=== PATIENT | male | born 1935 | race Caucasian/White ===

== ENCOUNTER → 2016-05-26 | Outpatient (CLI) | payer MEDICARE ==
[2016-05-26 10:56] LABS: Potassium 4.6 mmol/L (3.5-5.1)
== END ==
LOC: LABWHC1 09:36
PROVIDERS: ATTEND Internal Medicine Interventional Cardiology
DX: I25.10 Atherosclerotic heart disease of native coronary artery without angina pectoris (principal); I10 Essential (primary) hypertension
CPT/HCPCS: 36415; 80048

== ENCOUNTER → 2016-10-26 | Outpatient (CLI) | payer MEDICARE ==
--- NOTE | 2016-10-26 14:57 | US ---
EXAMINATION TYPE: US kidneys/renal and bladder DATE OF EXAM: 10/26/2016 COMPARISON: CT 2012 CLINICAL HISTORY: N18.3 Chronic kidney stage 3. EXAM MEASUREMENTS: Right Kidney: 9.4 x 4.3 x 3.7 cm Left Kidney: 9.1 x 3.9 x 3.9 cm Post Void Residual Volume: 14.9 mL Right Kidney: small cortical cysts renal pelvis prominent 0.8 cm Left Kidney: No hydronephrosis small calculi mid/lower pole 0.6 cm Bladder: wnl Bilateral Jets seen: Yes Normal Post Void Residual: Yes There is no evidence for hydronephrosis at this point in time. No nephrolithiasis is seen. No nicolas s are identified. The urinary bladder is anechoic. Bilateral ureteral jets are seen. Cortical medullary differentiation and cortical thickness are preserved. IMPRESSION: 1. 8mm right renal cyst. 2. 6 mm left mid to lower nonobstructing calculus. 3. Mild prominence of the right renal pelvis without distinct hydronephrosis may relate to transient dilatation during excretion. 4. Preserved cortical medullary differentiation and cortical thickness in a patient with known stage III chronic kidney disease.
== END | disposition home or self-care (01) ==
LOC: RADUSWWP 14:07
PROVIDERS: ATTEND Internal Medicine
DX: N20.0 Calculus of kidney (principal); N28.1 Cyst of kidney, acquired; N18.3 Chronic kidney disease, stage 3 (moderate)
CPT/HCPCS: 76770

== ENCOUNTER 2016-10-31 21:53 | Emergency (ER) | payer MEDICARE ==
[2016-10-31] MEDS ORDERED: KETOROLAC 30 MG/ML 1 ML VIAL IVP STA (22:41)
--- NOTE | 2016-10-31 22:46 | ED ---
General Adult HPI - General Chief complaint: Weakness Stated complaint: R Arm Numb Time Seen by Provider: 10/31/16 22:22 Source: patient, family, RN notes reviewed Mode of arrival: ambulatory Limitations: no limitations - History of Present Illness Initial comments: Patient is a pleasant 81-year-old male presenting to the emergency department with right arm problems. Upon further questioning patient admits his problems are related to the right wrist. Patient complains of discomfort especially with movement. Patient states there may be a little bit of tingling and weakness. Patient states no involvement of the shoulder or upper arm or elbow. No history of similar symptoms previously. No recent trauma. No fevers. - Related Data Home Medications Medication Instructions Recorded Confirmed Atorvastatin [Lipitor] 20 mg PO HS 10/21/14 10/31/16 Calcium Carbonate [Calcium] 600 mg PO DAILY 10/21/14 10/31/16 Aspirin EC [Ecotrin Low Dose] 81 mg PO DAILY 10/31/16 10/31/16 Losartan/Hydrochlorothiazide 1 tab PO DAILY 10/31/16 10/31/16 [Losartan-Hctz 100-25 mg Tab] Metoprolol Tartrate [Lopressor] 25 mg PO BID 10/31/16 10/31/16 Nitroglycerin Sl Tabs [Nitrostat] 0.4 mg SUBLINGUAL Q5M PRN 10/31/16 10/31/16 Previous Rx's Medication Instructions Recorded amLODIPine [Norvasc] 5 mg PO DAILY #30 tab 11/04/14 Hydrocodone/Acetaminophen [[place] 1 each PO Q4HR PRN #15 tab 11/01/16 5-325] Allergies Allergy/AdvReac Type Severity Reaction Status Date / Time Sulfa (Sulfonamide Allergy Rash/Hives Verified 10/31/16 22:00 Antibiotics) Review of Systems ROS Statement: Those systems with pertinent positive or pertinent negative responses have been documented in the HPI. ROS Other: All systems not noted in ROS Statement are negative. Constitutional: Denies: fever, chills Eyes: Denies: eye pain ENT: Denies: ear pain Respiratory: Denies: cough Cardiovascular: Denies: chest pain Endocrine: Denies: fatigue Gastrointestinal: Denies: abdominal pain Genitourinary: Denies: dysuria Musculoskeletal: Denies: back pain Skin: Denies: lesions Neurological: Reports: weakness (Patient states right hand may be somewhat weak. Patient states he does have some chronic weakness from previous biceps tear.) Past Medical History Past Medical History: CVA/TIA, Hyperlipidemia, Hypertension Additional Past Medical History / Comment(s): IRREGULAR. NO RESIDUAL WITH CVA, ASA RESOLVED ALL SYMPTOMS. History of Any Multi-Drug Resistant Organisms: None Reported Past Surgical History: Heart Catheterization Additional Past Surgical History / Comment(s): 10-27-14 cabg x4 vessel with left internal mammary artery, open saphenous vein harvest. 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 Past Anesthesia/Blood Transfusion Reactions: No Reported Reaction Additional Past Anesthesia/Blood Transfusion Reaction / Comment(s): HAS HAD BLOOD TRANSFUSIONS IN THE PAST WITHOUT REACTIONS. Past Psychological History: No Psychological Hx Reported Smoking Status: Former smoker Past Alcohol Use History: None Reported Past Drug Use History: None Reported - Past Family History Father Family Medical History: Cancer Mother Family Medical History: Coronary Artery Disease (CAD) Additional Family Medical History / Comment(s): CABG. General Exam Limitations: no limitations General appearance: alert, in no apparent distress Head exam: Present: atraumatic Eye exam: Present: normal appearance, PERRL ENT exam: Present: normal oropharynx Neck exam: Present: normal inspection Respiratory exam: Present: normal lung sounds bilaterally Cardiovascular Exam: Present: regular rate, normal rhythm Expanded Peripheral pulses: 2+: Radial (R) GI/Abdominal exam: Present: soft. Absent: tenderness Right Shoulder Exam: Present: normal inspection, full ROM Upper Arm exam: Present: normal inspection, full ROM. Absent: tenderness, swelling Elbow exam: Present: normal inspection, full ROM. Absent: tenderness, swelling Forearm Wrist exam: Present: other (Right dorsal wrist region with erythema and warmth, minimal edema. This extends to near the mid hand and just above the wrist. Not circumferential. Not limited to the wrist. No weakness. Pain with range of motion at the wrist.) Left General: Present: other (Amputation at the left mid forearm.) Back exam: Present: normal inspection Neurological exam: Present: alert. Absent: motor sensory deficit Psychiatric exam: Present: normal affect, normal mood Skin exam: Present: erythema (Right dorsal wrist region) Course Vital Signs 10/31/16 10/31/16 10/31/16 21:56 22:51 23:58 Temperature 97.6 F 99.5 F Pulse Rate 110 H 109 H 112 H Respiratory 20 20 18 Rate Blood Pressure 162/96 134/102 103/68 O2 Sat by Pulse 96 98 94 L Oximetry EKG Findings - EKG Comments: EKG Findings:: Sinus tachycardia 110. FL 198. QRS 98. QT 336. QTc 454. Normal axis. Occasional PVC. LVH. Inferior Q waves. No acute ST change. Medical Decision Making - Medical Decision Making Patient reevaluated and improved. Wrist exam unchanged. Symptoms are felt to be more likely related to arthralgia rather than infection. For safety reasons patient will be placed on oral antibiotic. Patient is advised to have close follow-up with primary care physician and orthopedics this week. Patient is advised to return for worsening symptoms or fever. - Lab Data Result diagrams: 10/31/16 22:45 10/31/16 22:45 Lab Results 10/31/16 10/31/16 Range/Units 22:45 22:45 WBC 13.6 H (3.8-10.6) k/uL RBC 4.96 (4.30-5.90) m/uL Hgb 16.7 (13.0-17.5) gm/dL Hct 46.8 (39.0-53.0) % MCV 94.2 (80.0-100.0) fL MCH 33.6 (25.0-35.0) pg MCHC 35.7 (31.0-37.0) g/dL RDW 12.8 (11.5-15.5) % Plt Count 166 (150-450) k/uL Neutrophils % 88 % Lymphocytes % 5 % Monocytes % 5 % Eosinophils % 0 % Basophils % 0 % Neutrophils # 12.0 H (1.3-7.7) k/uL Lymphocytes # 0.7 L (1.0-4.8) k/uL Monocytes # 0.7 (0-1.0) k/uL Eosinophils # 0.0 (0-0.7) k/uL Basophils # 0.0 (0-0.2) k/uL ESR 5 (0-15) mm/hr Sodium 139 (137-145) mmol/L Potassium 3.9 (3.5-5.1) mmol/L Chloride 103 (98-107) mmol/L Carbon Dioxide 21 L (22-30) mmol/L Anion Gap 15 mmol/L BUN 32 H (9-20) mg/dL Creatinine 1.40 H (0.66-1.25) mg/dL Est GFR (MDRD) Af Amer 59 (>60 ml/min/1.73 sqM) Est GFR (MDRD) Non-Af 49 (>60 ml/min/1.73 sqM) Glucose 153 H (74-99) mg/dL Uric Acid 10.2 H (3.5-8.5) mg/dL Calcium 10.0 (8.4-10.2) mg/dL Total Bilirubin 0.9 (0.2-1.3) mg/dL AST 23 (17-59) U/L ALT 34 (21-72) U/L Alkaline Phosphatase 89 (38-126) U/L C-Reactive Protein 12.5 H (<10.0) mg/L Total Protein 7.4 (6.3-8.2) g/dL Albumin 4.6 (3.5-5.0) g/dL - Radiology Data Radiology results: image reviewed (X-ray of the right wrist does show degenerative changes and osteopenia.) Disposition Clinical Impression: Arthralgia of wrist, right Disposition: HOME SELF-CARE Condition: Stable Instructions: Arthralgia (ED) Additional Instructions: Please follow-up with Dr. Espinoza and orthopedic physician this week, call in the morning. Return for fever, increased redness, increased pain, increased swelling, worsening symptoms or any other concerns. Ilse-tjr-pknniov ibuprofen as needed. Prescriptions: Hydrocodone/Acetaminophen [[place] 5-325] 1 each PO Q4HR PRN #15 tab PRN Reason: Pain Referrals: Stuart Espinoza MD [Primary Care Provider] - 1-2 days Time of Disposition: 00:43
[2016-10-31 23:02] LABS: Basophils % (A) 0 %; CH 32.5; CHCM 34.6; Eosinophils % (A) 0 %; HCT 46.8 % (39.0-53.0); HDW 2.49; HGB 16.7 gm/dL (13.0-17.5); Luc # (Auto) 0.15; Luc % (Auto) 1; Lymphocytes # (A) 0.7 k/uL (1.0-4.8); Lymphocytes % (A) 5 %; MCH 33.6 pg (25.0-35.0); MCHC 35.7 g/dL (31.0-37.0); MCV 94.2 fL (80.0-100.0); Mean Platelet Volume 8.5; Monocytes # (A) 0.7 k/uL (0-1.0); Monocytes % (A) 5 %; Neutrophils % (A) 88 %; RBC 4.96 m/uL (4.30-5.90); RDW 12.8 % (11.5-15.5); WBC 13.6 k/uL (3.8-10.6); WBC (Perox) 13.14
[2016-10-31 23:14] LABS: C Reactive Protein 12.5 mg/L (<10.0); Potassium 3.9 mmol/L (3.5-5.1); Total Bilirubin 0.9 mg/dL (0.2-1.3); Total Protein 7.4 g/dL (6.3-8.2); Uric Acid 10.2 mg/dL (3.5-8.5)
--- NOTE | 2016-10-31 23:19 | XR ---
EXAM: XR Right Wrist Complete, 3 or More Views CLINICAL HISTORY: Reason: Pain TECHNIQUE: Frontal, lateral and oblique views of the right wrist. COMPARISON: No relevant prior studies available. FINDINGS: Bones/joints: Moderate osteoarthritic changes, characterized by subchondral sclerotic and cystic changes, joint space narrowing and osteophyte formation, worse at trapezium first metacarpal joint. No acute fracture. No dislocation. Soft tissues: Unremarkable. No radiopaque foreign body. IMPRESSION: 1. Osteopenia. 2. Moderate osteoarthritic changes worse at trapezium first metacarpal joint.
[2016-10-31 23:59] VITALS: BP 103/68; PULSE 112; RESP 18; TEMP 99.5
[2016-11-01 00:03] LABS: Erythrocyte Sedimentation Rate 5 mm/hr (0-15)
--- NOTE | 2016-11-01 00:44 | ED ---
Medical Decision Making - Lab Data Result diagrams: 10/31/16 22:45 10/31/16 22:45 Lab Results 10/31/16 10/31/16 Range/Units 22:45 22:45 WBC 13.6 H (3.8-10.6) k/uL RBC 4.96 (4.30-5.90) m/uL Hgb 16.7 (13.0-17.5) gm/dL Hct 46.8 (39.0-53.0) % MCV 94.2 (80.0-100.0) fL MCH 33.6 (25.0-35.0) pg MCHC 35.7 (31.0-37.0) g/dL RDW 12.8 (11.5-15.5) % Plt Count 166 (150-450) k/uL Neutrophils % 88 % Lymphocytes % 5 % Monocytes % 5 % Eosinophils % 0 % Basophils % 0 % Neutrophils # 12.0 H (1.3-7.7) k/uL Lymphocytes # 0.7 L (1.0-4.8) k/uL Monocytes # 0.7 (0-1.0) k/uL Eosinophils # 0.0 (0-0.7) k/uL Basophils # 0.0 (0-0.2) k/uL ESR 5 (0-15) mm/hr Sodium 139 (137-145) mmol/L Potassium 3.9 (3.5-5.1) mmol/L Chloride 103 (98-107) mmol/L Carbon Dioxide 21 L (22-30) mmol/L Anion Gap 15 mmol/L BUN 32 H (9-20) mg/dL Creatinine 1.40 H (0.66-1.25) mg/dL Est GFR (MDRD) Af Amer 59 (>60 ml/min/1.73 sqM) Est GFR (MDRD) Non-Af 49 (>60 ml/min/1.73 sqM) Glucose 153 H (74-99) mg/dL Uric Acid 10.2 H (3.5-8.5) mg/dL Calcium 10.0 (8.4-10.2) mg/dL Total Bilirubin 0.9 (0.2-1.3) mg/dL AST 23 (17-59) U/L ALT 34 (21-72) U/L Alkaline Phosphatase 89 (38-126) U/L C-Reactive Protein 12.5 H (<10.0) mg/L Total Protein 7.4 (6.3-8.2) g/dL Albumin 4.6 (3.5-5.0) g/dL Disposition Clinical Impression: Arthralgia of wrist, right Disposition: HOME SELF-CARE Condition: Stable Instructions: Arthralgia (ED) Additional Instructions: Please follow-up with Dr. Espinoza and orthopedic physician this week, call in the morning. Return for fever, increased redness, increased pain, increased swelling, worsening symptoms or any other concerns. Kwxn-fwp-puyavys ibuprofen as needed. Prescriptions: Hydrocodone/Acetaminophen [[place] 5-325] 1 each PO Q4HR PRN #15 tab PRN Reason: Pain Referrals: Stuart Espinoza MD [Primary Care Provider] - 1-2 days Galindo Patel DO [Doctor of Osteopathic Medicine] - 1-2 days
[2016-11-01] MEDS ORDERED: HYDROcodone/APAP 5-325MG 1 EACH TAB PO STA (00:54)
== END 2016-11-01 00:57 | disposition home or self-care (01) ==
LOC: EC 21:53
DX: M25.531 Pain in right wrist (principal); R53.1 Weakness; E78.5 Hyperlipidemia, unspecified; I10 Essential (primary) hypertension; Z87.891 Personal history of nicotine dependence; Z86.73 Personal history of transient ischemic attack (TIA), and cerebral infarction without residual deficits; Z79.82 Long term (current) use of aspirin; Z79.899 Other long term (current) drug therapy; Z88.2 Allergy status to sulfonamides
CPT/HCPCS: 36415; 93005; 80053; 85652; 84550; 85025; 86140; 87040; 73110; 99285; 96374; J1885

== ENCOUNTER → 2018-04-24 | Outpatient (CLI) | payer MEDICARE ==
--- NOTE | 2018-04-24 08:52 | US ---
EXAMINATION TYPE: US kidneys/renal and bladder DATE OF EXAM: 04/24/2018 COMPARISON: US 2017 CLINICAL HISTORY: CKD STAGE 3 N18.3. EXAM MEASUREMENTS: Right Kidney: 10.4 x 5.0 x 4.9 cm Left Kidney: 10.1 x 5.3 x 5.2 cm Post Void Residual Volume: 33.0 mL Right Kidney: Lower pole cyst = 1.0 x 0.9 x 0.8 cm No hydronephrosis seen Left Kidney: 1.5 cm renal nonobstructing renal calculus mid/upper pole. No hydronephrosis or masses s een Bladder: Limited by incomplete distention with no definite abnormality Bilateral Jets seen: Yes Normal Post Void Residual: Yes IMPRESSION: 1. Nonobstructing left renal calculus
== END ==
LOC: RADUSWWP 08:09
PROVIDERS: ATTEND Internal Medicine
DX: N20.0 Calculus of kidney (principal)
CPT/HCPCS: 76770

== ENCOUNTER → 2018-09-30 | Outpatient (CLI) | payer MEDICARE ==
--- NOTE | 2018-09-30 14:03 | CT ---
EXAMINATION TYPE: CT brain wo con DATE OF EXAM: 09/30/2018 COMPARISON: 08/04/2018 HISTORY: slurred speech CT DLP: 1225 mGycm Automated exposure control for dose reduction was used. FINDINGS: There is extensive atherosclerotic change of the intracranial structures. Asymmetry to the right fron kandace cerebral convexity may represent chronic subdural hygroma or hematoma stable from the prior exam. No acute intracranial hemorrhage or mass effect. Moderate generalized degenerative change and low-attenuation the white matter is nonspecific but most typical remote ischemia. Areas of low attenuation within the basal ganglia are suggestive of remote lacunar infarctions. Calcification within the right basal ganglia and cerebellum is stable from the prior exam IMPRESSION: 1. Degenerative and nonspecific remote ischemic change with no evidence of acute hemorrhage or mass e ffect. If there is concern for acute ischemia correlate with MRI as clinically warranted. 2. 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 No midline shift. No acute hemorrhage.
== END | disposition home or self-care (01) ==
LOC: RADCTMAIN 13:16
PROVIDERS: ATTEND Internal Medicine
DX: G45.9 Transient cerebral ischemic attack, unspecified (principal); R47.01 Aphasia
CPT/HCPCS: 70450

== ENCOUNTER → 2018-10-04 | Outpatient (CLI) | payer MEDICARE ==
--- NOTE | 2018-10-05 08:01 | MR ---
EXAMINATION TYPE: MR brain wo/w con DATE OF EXAM: 10/04/2018 COMPARISON: CT brain 09/30/2018 HISTORY: Aphasia, CT on pacs, 7.5ml gadavist CONTRAST: Performed utilizing 7.5ml mL intravenous Gadavist gadolinium contrast. TECHNIQUE: Multiplanar, multiecho imaging on a 3.0 Vi magnet is performed through the brain. Stud y is performed within 24 hours of arrival to the hospital. The craniovertebral junction is normal. The pituitary is normal. Diffusion-weighted imaging is performed. There is hyperintensity along the cortex deep white matter of the posterior left parietal lobe. Findings are compatible with acute ischemic change There are additional areas of hyperintensity on T2 and inversion recovery weighted sequences within t he deep white matter and subcortical white matter which can be compatible with chronic white matter i schemic changes. Following contrast, there is an area of enhancement along the cortex deep within the sulcus of the le ft frontal lobe. Series 701 image 22 this may be some luxury perfusion corresponds to an area of isch emia on the diffusion. Additional areas of abnormal enhancement are not evident. Ventricles and sulci are prominent for the patient age. IMPRESSIONS: 1. Scattered peripheral areas of acute ischemic change within the left frontal lobe, parietal lobe 2. Atrophy with chronic appearing periventricular white matter ischemic changes. A [place] level critical message alert has been initiated for Stuart Espinoza MD via the [employer] Critical Results System on 10/05/2018 7:58 AM. This message alert has been sent to Stuart Espinoza MD via the preferences provided by the clinician for the receipt of Radiology Critical Findings. Message ID [id number].
== END | disposition home or self-care (01) ==
LOC: RADMRIMAIN 17:13
PROVIDERS: ATTEND Internal Medicine
DX: I67.82 Cerebral ischemia (principal); G31.9 Degenerative disease of nervous system, unspecified; R90.89 Other abnormal findings on diagnostic imaging of central nervous system
CPT/HCPCS: 70553; A9585

== ENCOUNTER 2019-01-11 15:12 | Emergency (ER) | payer MEDICARE ==
[2019-01-11 15:18] VITALS: RESP 18
--- NOTE | 2019-01-11 16:04 | ED ---
General Adult HPI - General Chief complaint: Neuro Symptoms/Deficit Stated complaint: Headache/weakness Time Seen by Provider: 01/11/19 15:32 Source: patient, RN notes reviewed Mode of arrival: ambulatory Limitations: no limitations - History of Present Illness Initial comments: This is a 83-year-old male who states he had some right facial pain while he was shopping earlier today perhaps some numbness no weakness to his upper or lower extremities. It lasted several minutes is gone now. He did have a cystic like mass on the right side of his face for a long period time he was able express some sebaceous appearing material from it. He relates the findings to this cystic mass. 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 He does believe that he has been told by his doctor the male he has some small stroke in the past. - Related Data Home Medications Medication Instructions Recorded Confirmed Atorvastatin [Lipitor] 20 mg PO DAILY 10/21/14 08/04/18 Aspirin EC [Ecotrin Low Dose] 81 mg PO DAILY 10/31/16 08/04/18 Losartan/Hydrochlorothiazide 1 tab PO DAILY 10/31/16 08/04/18 [Losartan-Hctz 100-25 mg Tab] Metoprolol Tartrate [Lopressor] 25 mg PO BID 10/31/16 08/04/18 amLODIPine [Norvasc] 5 mg PO HS 08/04/18 08/04/18 Allergies Allergy/AdvReac Type Severity Reaction Status Date / Time Sulfa (Sulfonamide Allergy Rash/Hives Verified 01/11/19 15:18 Antibiotics) Review of Systems ROS Statement: Those systems with pertinent positive or pertinent negative responses have been documented in the HPI. ROS Other: All systems not noted in ROS Statement are negative. Past Medical History Past Medical History: CVA/TIA, Hyperlipidemia, Hypertension Additional Past Medical History / Comment(s): IRREGULAR. NO RESIDUAL WITH CVA, ASA RESOLVED ALL SYMPTOMS. History of Any Multi-Drug Resistant Organisms: None Reported Past Surgical History: Heart Catheterization Additional Past Surgical History / Comment(s): 10-27-14 cabg x4 vessel with left internal mammary artery, open saphenous vein harvest. 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 Past Anesthesia/Blood Transfusion Reactions: No Reported Reaction Additional Past Anesthesia/Blood Transfusion Reaction / Comment(s): HAS HAD BLOOD TRANSFUSIONS IN THE PAST WITHOUT REACTIONS. Past Psychological History: No Psychological Hx Reported Smoking Status: Former smoker Past Alcohol Use History: None Reported Past Drug Use History: None Reported - Past Family History Father Family Medical History: Cancer Mother Family Medical History: Coronary Artery Disease (CAD) Additional Family Medical History / Comment(s): CABG. General Exam - General Exam Comments Initial Comments: This a well-developed well-nourished awake alert oriented 3 male Limitations: no limitations General appearance: alert, in no apparent distress Head exam: Present: atraumatic, normocephalic, normal inspection, other (There is a small cystic areas seen to the right protestant area anterior to the ear active bleeding. A culture was sent.) Eye exam: Present: normal appearance, PERRL, EOMI. Absent: scleral icterus, con junctival injection, periorbital swelling ENT exam: Present: normal exam, mucous membranes moist Neck exam: Present: normal inspection, full ROM, other (ALLERGY or bruits). Absent: tenderness, meningismus, lymphadenopathy Respiratory exam: Present: normal lung sounds bilaterally. Absent: respiratory distress, wheezes, rales, rhonchi, stridor Cardiovascular Exam: Present: regular rate, normal rhythm, normal heart sounds. Absent: systolic murmur, diastolic murmur, rubs, gallop, clicks GI/Abdominal exam: Present: soft, normal bowel sounds. Absent: distended, tenderness, guarding, rebound, rigid Extremities exam: Present: full ROM, normal capillary refill, other (Left upper extremity prosthesis). Absent: tenderness, pedal edema, joint swelling, calf tenderness Back exam: Present: normal inspection Neurological exam: Present: alert, oriented X3, CN II-XII intact Psychiatric exam: Present: normal affect, normal mood Skin exam: Present: warm, dry, intact, normal color. Absent: rash Course Vital Signs 01/11/19 01/11/19 15:16 16:15 Temperature 97.4 F L Pulse Rate 76 75 Respiratory 18 18 Rate Blood Pressure 141/73 124/79 O2 Sat by Pulse 98 95 Oximetry - Reevaluation(s) Reevaluation #1: 01/11/19 17:20 Reevaluation patient reveals no change in his status no headache no blurry vision no focal weakness. Reevaluation #2: 01/11/19 17:23 Transfer papers were filled out by me EKG Findings - EKG Results: EKG: interpreted by MAURO, sinus rhythm (Sinus rhythm with first-degree AV block occasional PACs rate was 71 appear interval 2:30 QRS duration 88 QT since QTC 392/425) Medical Decision Making - Medical Decision Making I did discuss findings with the patient family patient requests to [facility] I did discuss the case with Dr. Li who is agreed to accept the patient and transfer the patient case was also discussed with the transfer team who did contact neurosurgery who agreed to accept the patient. Patient will be transferred by EMS. He currently is awake alert oriented 3 in no distress with stable vital signs. A family member did notify me that he did have some right finger numbness She had not previously told anyone. - Lab Data Result diagrams: 01/11/19 15:40 01/11/19 15:40 Lab Results 01/11/19 01/11/19 Range/Units 15:40 15:40 WBC 7.0 (3.8-10.6) k/uL RBC 5.12 (4.30-5.90) m/uL Hgb 16.5 (13.0-17.5) gm/dL Hct 49.3 (39.0-53.0) % MCV 96.2 (80.0-100.0) fL MCH 32.2 (25.0-35.0) pg MCHC 33.5 (31.0-37.0) g/dL RDW 12.3 (11.5-15.5) % Plt Count 203 (150-450) k/uL Neutrophils % 63 % Lymphocytes % 24 % Monocytes % 6 % Eosinophils % 2 % Basophils % 2 % Neutrophils # 4.4 (1.3-7.7) k/uL Lymphocytes # 1.7 (1.0-4.8) k/uL Monocytes # 0.4 (0-1.0) k/uL Eosinophils # 0.2 (0-0.7) k/uL Basophils # 0.1 (0-0.2) k/uL Sodium 142 (137-145) mmol/L Potassium 3.7 (3.5-5.1) mmol/L Chloride 105 (98-107) mmol/L Carbon Dioxide 29 (22-30) mmol/L Anion Gap 8 mmol/L BUN 32 H (9-20) mg/dL Creatinine 1.35 H (0.66-1.25) mg/dL Est GFR (CKD-EPI)AfAm 56 (>60 ml/min/1.73 sqM) Est GFR (CKD-EPI)NonAf 48 (>60 ml/min/1.73 sqM) Glucose 100 H (74-99) mg/dL Calcium 10.3 H (8.4-10.2) mg/dL Magnesium 1.9 (1.6-2.3) mg/dL Total Bilirubin 0.8 (0.2-1.3) mg/dL AST 24 (17-59) U/L ALT 30 (21-72) U/L Alkaline Phosphatase 65 (38-126) U/L Creatine Kinase 85 (55-170) U/L Total Protein 7.5 (6.3-8.2) g/dL Albumin 4.6 (3.5-5.0) g/dL - Radiology Data Radiology results: report reviewed (I did review the imaging and report did discuss case with Dr. Ojeda from radiology. Patient does have a 3 x 1 cm intraparenchymal bleed in the left parietal lobe.), image reviewed Critical Care Time Critical Care Time: Yes Critical Care Time: 31 minutes of critical care time which includes initial presentation with history physical labs x-rays multiple reevaluation the patient discussed with patient and family members regarding findings discussion with the receiving facility discussed and with EMS personnel documentation of the above Disposition Clinical Impression: Cerebrovascular accident (CVA), Spontaneous intraparenchymal intracranial hem orrhage, acute Disposition: OTHER INSTITUTION NOT DEFINED Condition: Fair Referrals: Stuart Espinoza MD [Primary Care Provider] - 1-2 days - Out of Hospital Transfer - Req. Specs Out of Hospital Transfer - Requested Specifics: Other Emergency Center
[2019-01-11 16:13] LABS: Basophils # (A) 0.1 k/uL (0-0.2); Basophils % (A) 2 %; Eosinophils # (A) 0.2 k/uL (0-0.7); Eosinophils % (A) 2 %; HCT 49.3 % (39.0-53.0); HGB 16.5 gm/dL (13.0-17.5); Lymphocytes # (A) 1.7 k/uL (1.0-4.8); Lymphocytes % (A) 24 %; MCH 32.2 pg (25.0-35.0); MCHC 33.5 g/dL (31.0-37.0); MCV 96.2 fL (80.0-100.0); Mean Platelet Volume 7.9; Monocytes # (A) 0.4 k/uL (0-1.0); Monocytes % (A) 6 %; Neutrophils # (A) 4.4 k/uL (1.3-7.7); Neutrophils % (A) 63 %; Platelet Count 203 k/uL (150-450); RBC 5.12 m/uL (4.30-5.90); RDW 12.3 % (11.5-15.5)
[2019-01-11 16:25] LABS: Albumin 4.6 g/dL (3.5-5.0); Calcium 10.3 mg/dL (8.4-10.2); Magnesium 1.9 mg/dL (1.6-2.3); Potassium 3.7 mmol/L (3.5-5.1); Total Bilirubin 0.8 mg/dL (0.2-1.3); Total Protein 7.5 g/dL (6.3-8.2)
--- NOTE | 2019-01-11 16:27 | CT ---
EXAMINATION TYPE: CT brain wo con DATE OF EXAM: 01/11/2019 COMPARISON: None HISTORY: Right sided headache. CT DLP: 1149.4 mGycm Automated exposure control for dose reduction was used. FINDINGS: There is some cerebral cortical atrophy. There is no mass effect nor midline shift. There is some vijaya ear is somewhat gyriform increased signal that measures 3 x 1 cm in the left parietal lobe convexity. This appears to be arising within the brain parenchyma. Calvarium is intact. IMPRESSION: CEREBRAL ATROPHY. ACUTE GYRIFORM CORTICAL HEMORRHAGE LEFT PARIETAL LOBE. THIS COULD RELATE TO ACUTE H EMORRHAGIC INFARCT. NO MASS EFFECT.
--- NOTE | 2019-01-11 16:29 | XR ---
EXAMINATION TYPE: XR chest 2V DATE OF EXAM: 01/11/2019 COMPARISON: 11/02/2014 HISTORY: Pain and numbness TECHNIQUE: Frontal and lateral views of the chest are obtained. FINDINGS: There is no heart failure nor confluent pneumonic infiltrate. There are sternal wires. The re are chest leads. There is slight thoracic kyphotic curvature. There is no pleural effusion. IMPRESSION: No active cardiopulmonary disease. There is clearing of the apparent heart failure and p leural fluid compared to last exam.
[2019-01-11 18:04] VITALS: BP 150/80; PULSE 78; TEMP 98.1
== END 2019-01-11 17:35 | disposition short-term general hospital (02) ==
LOC: EC 15:12
DX: I63.9 Cerebral infarction, unspecified (principal); I62.9 Nontraumatic intracranial hemorrhage, unspecified; L72.9 Follicular cyst of the skin and subcutaneous tissue, unspecified; E78.5 Hyperlipidemia, unspecified; I10 Essential (primary) hypertension; Z87.891 Personal history of nicotine dependence; Z88.2 Allergy status to sulfonamides; Z79.82 Long term (current) use of aspirin; Z79.899 Other long term (current) drug therapy; Z95.818 Presence of other cardiac implants and grafts; Z89.212 Acquired absence of left upper limb below elbow
CPT/HCPCS: 36415; 70450; 71046; 80053; 82550; 83735; 85025; 87040; 93005; 99291

== ENCOUNTER 2019-01-13 16:29 | Emergency (ER) | payer MEDICARE ==
--- NOTE | 2019-01-13 16:55 | ED ---
Neuro HPI - General Chief Complaint: Neuro Symptoms/Deficit Stated Complaint: Rt arm/face numbness Time Seen by Provider: 01/13/19 16:42 Source: patient, family, RN notes reviewed, old records reviewed Mode of arrival: ambulatory Limitations: no limitations - History of Present Illness Is the patient presenting with stroke symptoms?: No Initial Comments: This 83-year-old male who was just discharged from [facility] this morning after being sent here for evaluation of a intracerebral bleed who states after getting home he had the onset of right hand specifically fourth of fifth finger numbness and tingling. And some right-sided numbness to his body. This quickly resolved he has no complaints no new findings at this time. No fevers chills nausea vomiting sweats or other symptoms he does state that some of his medications were changed he was a Na and he has outpatient follow- up with his doctors. The patient was seen here 2 days ago by me and was diagnosed with a left parietal intraparenchymal bleed. - Related Data Home Medications: Home Medications Medication Instructions Recorded Confirmed Aspirin EC [Ecotrin Low Dose] 81 mg PO DIRECTED 10/31/16 01/13/19 Metoprolol Tartrate [Lopressor] 25 mg PO BID 10/31/16 01/13/19 amLODIPine [Norvasc] 5 mg PO HS 08/04/18 01/13/19 Atorvastatin Calcium [Lipitor] 40 mg PO HS 01/13/19 01/13/19 Allergies/Adverse Reactions: Allergies Allergy/AdvReac Type Severity Reaction Status Date / Time Sulfa (Sulfonamide Allergy Rash/Hives Verified 01/13/19 18:44 Antibiotics) Review of Systems ROS Statement: Those systems with pertinent positive or pertinent negative responses have been documented in the HPI. ROS Other: All systems not noted in ROS Statement are negative. General Exam - General Exam Comments Initial Comments: This is a well-developed well-nourished awake alert oriented 3 male Limitations: no limitations General appearance: alert, in no apparent distress Head exam: Present: atraumatic, normocephalic, normal inspection Eye exam: Present: normal appearance, PERRL, EOMI. Absent: scleral icterus, co njunctival injection, periorbital swelling ENT exam: Present: normal exam, mucous membranes moist Neck exam: Present: normal inspection, full ROM, other (No stridor JVD or bruits). Absent: tenderness, meningismus, lymphadenopathy Respiratory exam: Present: normal lung sounds bilaterally. Absent: respiratory distress, wheezes, rales, rhonchi, stridor Cardiovascular Exam: Present: regular rate, normal rhythm, normal heart sounds. Absent: systolic murmur, diastolic murmur, rubs, gallop, clicks GI/Abdominal exam: Present: soft, normal bowel sounds. 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 Absent: tenderness, pedal edema, joint swelling, calf tenderness Back exam: Present: normal inspection Neurological exam: Present: alert, oriented X3, CN II-XII intact Psychiatric exam: Present: normal affect, normal mood Skin exam: Present: warm, dry, intact, normal color. Absent: rash Stroke MDM - Lab Data Result diagrams: 01/13/19 17:20 01/13/19 17:20 Lab Results 01/13/19 01/13/19 01/13/19 Range/Units 17:20 17:20 17:20 WBC 7.3 (3.8-10.6) k/uL RBC 5.19 (4.30-5.90) m/uL Hgb 17.1 (13.0-17.5) gm/dL Hct 49.9 (39.0-53.0) % MCV 96.1 (80.0-100.0) fL MCH 32.9 (25.0-35.0) pg MCHC 34.2 (31.0-37.0) g/dL RDW 12.3 (11.5-15.5) % Plt Count 184 (150-450) k/uL Neutrophils % 67 % Lymphocytes % 21 % Monocytes % 8 % Eosinophils % 2 % Basophils % 0 % Neutrophils # 4.9 (1.3-7.7) k/uL Lymphocytes # 1.6 (1.0-4.8) k/uL Monocytes # 0.6 (0-1.0) k/uL Eosinophils # 0.1 (0-0.7) k/uL Basophils # 0.0 (0-0.2) k/uL PT 10.1 (9.0-12.0) sec INR 0.9 (<1.2) APTT 23.9 (22.0-30.0) sec Sodium 141 (137-145) mmol/L Potassium 4.0 (3.5-5.1) mmol/L Chloride 101 (98-107) mmol/L Carbon Dioxide 29 (22-30) mmol/L Anion Gap 11 mmol/L BUN 31 H (9-20) mg/dL Creatinine 1.46 H (0.66-1.25) mg/dL Est GFR (CKD-EPI)AfAm 51 (>60 ml/min/1.73 sqM) Est GFR (CKD-EPI)NonAf 44 (>60 ml/min/1.73 sqM) Glucose 114 H (74-99) mg/dL Calcium 9.6 (8.4-10.2) mg/dL Total Bilirubin 1.2 (0.2-1.3) mg/dL AST 31 (17-59) U/L ALT 32 (21-72) U/L Alkaline Phosphatase 59 (38-126) U/L Creatine Kinase 92 (55-170) U/L Troponin I (0.000-0.034) ng/mL Total Protein 7.5 (6.3-8.2) g/dL Albumin 4.5 (3.5-5.0) g/dL 01/13/19 Range/Units 17:20 WBC (3.8-10.6) k/uL RBC (4.30-5.90) m/uL Hgb (13.0-17.5) gm/dL Hct (39.0-53.0) % MCV (80.0-100.0) fL MCH (25.0-35.0) pg MCHC (31.0-37.0) g/dL RDW (11.5-15.5) % Plt Count (150-450) k/uL Neutrophils % % Lymphocytes % % Monocytes % % Eosinophils % % Basophils % % Neutrophils # (1.3-7.7) k/uL Lymphocytes # (1.0-4.8) k/uL Monocytes # (0-1.0) k/uL Eosinophils # (0-0.7) k/uL Basophils # (0-0.2) k/uL PT (9.0-12.0) sec INR (<1.2) APTT (22.0-30.0) sec Sodium (137-145) mmol/L Potassium (3.5-5.1) mmol/L Chloride (98-107) mmol/L Carbon Dioxide (22-30) mmol/L Anion Gap mmol/L BUN (9-20) mg/dL Creatinine (0.66-1.25) mg/dL Est GFR (CKD-EPI)AfAm (>60 ml/min/1.73 sqM) Est GFR (CKD-EPI)NonAf (>60 ml/min/1.73 sqM) Glucose (74-99) mg/dL Calcium (8.4-10.2) mg/dL Total Bilirubin (0.2-1.3) mg/dL AST (17-59) U/L ALT (21-72) U/L Alkaline Phosphatase (38-126) U/L Creatine Kinase (55-170) U/L Troponin I <0.012 (0.000-0.034) ng/mL Total Protein (6.3-8.2) g/dL Albumin (3.5-5.0) g/dL - NIH Stroke Scale 1a. Level of Consciousness: (0) alert 1b. LOC Questions: (0) answers correctly 1c. LOC Commands: (0) performs tasks correctly 2. Best Gaze: (0) normal 3. Visual: (0) no visual loss 4. Facial Palsy: (0) normal symmetrical movement 5a. Motor Arm Left: (0) no drift 5b. Motor Arm Right: (0) no drift 6a. Motor Leg Left: (0) no drift 6b. Motor Leg Right: (0) no drift 7. Limb Ataxia: (0) absent 8. Sensory: (0) normal 9. Best Language: (0) no aphasia 10. Dysarthria: (0) normal 11. Extinction/Inattention: (0) no abnormality - Thrombolytic Inclusion/Exclusion Thrombolytic Contraindications: Rapidly Improving s/s - Medical Decision Making I did review the imaging and report no acute changes from 2 days ago. I did review all of the materials presented from [facility]. The patient was offered admission I had actually discussed the case with who originally agreed this keep the patient hospital here I did a long discussion with the patient family members patient does not want to stay in the hospital. He would prefer to go home. He would prefer to follow up with Dr. Espinoza in the office. We did discuss the symptoms and the possible etiologies patient does not want stay in hospital. He was welcome back at any time. The presentation is seemingly more consistent with a cervical radicular etiology with respect to the numbness to the right fourth and fifth fingers. - EKG Data -: EKG Interpreted by Me (Sinus rhythm first-degree AV block PACs rate was 74. Interval 220 QRS dura) Past Medical History Past Medical History: CVA/TIA, Hyperlipidemia, Hypertension Additional Past Medical History / Comment(s): IRREGULAR. NO RESIDUAL WITH CVA, ASA RESOLVED ALL SYMPTOMS., brain bleed History of Any Multi-Drug Resistant Organisms: None Reported Past Surgical History: Heart Catheterization Additional Past Surgical History / Comment(s): 10-27-14 cabg x4 vessel with left internal mammary artery, open saphenous vein harvest. 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 Past Anesthesia/Blood Transfusion Reactions: No Reported Reaction Additional Past Anesthesia/Blood Transfusion Reaction / Comment(s): HAS HAD BLOOD TRANSFUSIONS IN THE PAST WITHOUT REACTIONS. Past Psychological History: No Psychological Hx Reported Smoking Status: Former smoker Past Alcohol Use History: None Reported Past Drug Use History: None Reported - Past Family History Father Family Medical History: Cancer Mother Family Medical History: Coronary Artery Disease (CAD) Additional Family Medical History / Comment(s): CABG. Course Vital Signs 01/13/19 01/13/19 01/13/19 16:33 18:38 19:00 Temperature 97.7 F Pulse Rate 72 80 87 Respiratory 18 16 18 Rate Blood Pressure 144/85 132/92 132/82 O2 Sat by Pulse 96 95 93 L Oximetry 01/13/19 19:45 Temperature Pulse Rate 87 Respiratory 20 Rate Blood Pressure 135/84 O2 Sat by Pulse 99 Oximetry - Reevaluation(s) Reevaluation #1: 01/13/19 21:04 I did review the materials transmitted from [facility] on the patient's c are. Disposition Clinical Impression: Cervical radiculopathy, History of subarachnoid hemorrhage Disposition: HOME SELF-CARE Condition: Stable Instructions (If sedation given, give patient instructions): Subarachnoid Hemorrhage (DC), Cervical Radiculopathy (ED) Is patient prescribed a controlled substance at d/c from ED?: No Referrals: Stuart Espinoza MD [Primary Care Provider] - 1-2 days
[2019-01-13 17:34] LABS: Basophils % (A) 0 %; Eosinophils # (A) 0.1 k/uL (0-0.7); Eosinophils % (A) 2 %; HCT 49.9 % (39.0-53.0); HGB 17.1 gm/dL (13.0-17.5); Lymphocytes # (A) 1.6 k/uL (1.0-4.8); Lymphocytes % (A) 21 %; MCH 32.9 pg (25.0-35.0); MCHC 34.2 g/dL (31.0-37.0); MCV 96.1 fL (80.0-100.0); Mean Platelet Volume 7.4; Monocytes # (A) 0.6 k/uL (0-1.0); Monocytes % (A) 8 %; Neutrophils # (A) 4.9 k/uL (1.3-7.7); Neutrophils % (A) 67 %; Platelet Count 184 k/uL (150-450); RBC 5.19 m/uL (4.30-5.90); RDW 12.3 % (11.5-15.5); WBC 7.3 k/uL (3.8-10.6)
[2019-01-13 17:40] LABS: INR 0.9 (<1.2); Partial Thromboplastin Time 23.9 sec (22.0-30.0); Prothrombin Time 10.1 sec (9.0-12.0)
[2019-01-13 17:44] LABS: Albumin 4.5 g/dL (3.5-5.0); Calcium 9.6 mg/dL (8.4-10.2); Total Bilirubin 1.2 mg/dL (0.2-1.3); Total Protein 7.5 g/dL (6.3-8.2)
--- NOTE | 2019-01-13 18:03 | XR ---
EXAMINATION TYPE: XR chest 2V DATE OF EXAM: 01/13/2019 COMPARISON: 01/11/2019 HISTORY: Shortness of breath TECHNIQUE: Frontal and lateral views of the chest are obtained. FINDINGS: Scattered senescent parenchymal changes noted. Hyperinflation compatible with COPD. No evidence for infiltrate. No evidence for atelectasis. Heart size is stable. Mediastinal structures are stable and grossly unremarkable. No evidence for hilar prominence. Degenerative changes dorsal spine. IMPRESSION: 1. No evidence for acute pulmonary disease.
--- NOTE | 2019-01-13 18:10 | CT ---
EXAMINATION TYPE: CT brain wo con DATE OF EXAM: 01/13/2019 COMPARISON: 01/11/2019 HISTORY: rt hand/arm tingling/numbness feeling started today. brain bleed [address] DLP: 1083.[address] of the brain was performed. The ventricles, basal cisterns and sulci overlying the cerebral convexities demonstrate mild enlargem ent. High left frontal subarachnoid hemorrhage is again noted and is unchanged. There is decreased attenuation about the periventricular white matter and deep white matter of both c erebral hemispheres, compatible with chronic small vessel ischemia. Differential diagnosis does inclu de demyelination. No mass effects are seen.No midline shift. Osseous calvarium is intact. If symptoms persist consider MRI. IMPRESSION: 1. Age related atrophic and chronic small vessel ischemic change . High left frontal subarachnoid hem orrhage is again noted and is unchanged.
[2019-01-13 21:34] VITALS: RESP 18
[2019-01-13 21:44] VITALS: BP 126/72; PULSE 82; TEMP 98.1
== END 2019-01-13 21:20 | disposition home or self-care (01) ==
LOC: EC 16:29
DX: M54.12 Radiculopathy, cervical region (principal); E78.5 Hyperlipidemia, unspecified; I10 Essential (primary) hypertension; Z86.79 Personal history of other diseases of the circulatory system; Z95.818 Presence of other cardiac implants and grafts; Z86.73 Personal history of transient ischemic attack (TIA), and cerebral infarction without residual deficits; Z95.1 Presence of aortocoronary bypass graft; Z87.891 Personal history of nicotine dependence; Z79.82 Long term (current) use of aspirin; Z79.899 Other long term (current) drug therapy; Z88.2 Allergy status to sulfonamides
CPT/HCPCS: 36415; 70450; 71046; 80053; 82550; 84484; 85025; 85610; 85730; 93005; 99285

== ENCOUNTER → 2019-12-24 | Outpatient (CLI) | payer MEDICARE ==
--- NOTE | 2019-12-24 14:54 | XR ---
EXAMINATION TYPE: XR hand limited RT DATE OF EXAM: 12/24/2019 COMPARISON: None HISTORY: Pain TECHNIQUE: 2 view right hand FINDINGS: There are advanced degenerative joint changes at the distal interphalangeal joint space of the index finger and at the first carpal metacarpal junction. More moderate to advanced degenerative changes are within the remaining proximal distal interphalangeal joint spaces. No acute fractures are evident. The soft tissues appear normal. IMPRESSION: 1. Advanced osteoarthritic degenerative changes especially noted at the distal interphalangeal joint space right index finger
== END | disposition home or self-care (01) ==
LOC: RADXRMAIN 13:48
PROVIDERS: ATTEND Internal Medicine
DX: M19.041 Primary osteoarthritis, right hand (principal)

== ENCOUNTER → 2021-06-09 | Outpatient (CLI) | payer MEDICARE | END | disposition home or self-care (01) | LOC: LABWHC1 11:12 | PROVIDERS: ATTEND Internal Medicine | DX: U07.1 COVID-19 (principal) | CPT/HCPCS: U0003; C9803; U0005 ==

== ENCOUNTER → 2021-07-13 | Outpatient (CLI) | payer MEDICARE ==
--- NOTE | 2021-07-13 12:21 | XR ---
EXAMINATION TYPE: XR hand limited RT DATE OF EXAM: 07/13/2021 COMPARISON: 12/24/2019 HISTORY: Hand numbness TECHNIQUE: 2 view right hand FINDINGS: There are advanced degenerative changes of the distal interphalangeal joint space of the in dex finger. Advanced degenerative changes also present proximal interphalangeal joint space ring fing er. Degenerative changes first carpal metacarpal junction. Moderate to advanced degenerative changes are through the remaining proximal and distal interphalangeal joint spaces and metacarpal phalangeal joint spaces. Periarticular erosions are not identified. Osseous spurring is evident throughout. IMPRESSION: 1. Moderate to advanced osteoarthritic degenerative changes most notably proximal interphalangeal valerie int space ring finger and distal interphalangeal joint space index finger. Findings appears similar t o comparison study
== END | disposition home or self-care (01) ==
LOC: RADXRMAIN 10:49
PROVIDERS: ATTEND Internal Medicine
DX: M19.041 Primary osteoarthritis, right hand (principal); R20.0 Anesthesia of skin

== ENCOUNTER 2021-09-29 17:47 | Emergency (ER) | payer MEDICARE ==
[2021-09-29 18:46] VITALS: TEMP 97.9
--- NOTE | 2021-09-29 21:17 | XR ---
RESULT: HISTORY: pain and swelling TECHNIQUE: 4 views of the right wrist. 3 views of the right hand. COMPARISON: 07/13/2021. FINDINGS: There is no acute fracture or dislocation of the right wrist or hand. There is stable severe joint sp talat narrowing and scattered erosive changes notable of the index, middle and ring finger PIP and DIP joints. There are also severe degenerative changes of the thumb basal joint. IMPRESSION: No acute osseous abnormality. Stable findings consistent with erosive osteoarthritis.
[2021-09-29 21:18] LABS: Basophils % (A) 0 %; Eosinophils # (A) 0.2 k/uL (0-0.7); Eosinophils % (A) 2 %; HCT 51.3 % (39.0-53.0); HGB 16.2 gm/dL (13.0-17.5); Lymphocytes # (A) 1.4 k/uL (1.0-4.8); Lymphocytes % (A) 15 %; MCH 30.8 pg (25.0-35.0); MCHC 31.7 g/dL (31.0-37.0); MCV 97.2 fL (80.0-100.0); Mean Platelet Volume 9.8; Monocytes # (A) 0.6 k/uL (0-1.0); Monocytes % (A) 7 %; Neutrophils # (A) 7.3 k/uL (1.3-7.7); Neutrophils % (A) 75 %; Platelet Count 163 k/uL (150-450); RBC 5.27 m/uL (4.30-5.90); RDW 12.9 % (11.5-15.5); WBC 9.7 k/uL (3.8-10.6)
[2021-09-29 21:34] LABS: Albumin 4.5 g/dL (3.5-5.0); C Reactive Protein 0.7 mg/dL (<1.0); Calcium 9.2 mg/dL (8.4-10.2); Potassium 4.1 mmol/L (3.5-5.1); Total Bilirubin 1.4 mg/dL (0.2-1.3); Total Protein 7.2 g/dL (6.3-8.2)
[2021-09-29 22:25] VITALS: PULSE 77; RESP 16
[2021-09-29] MEDS ORDERED: cefTRIAXone IN SWFI 1,000 MG/10 ML SYRINGE IVP STA (22:37)
[2021-09-29] MEDS ORDERED: cefTRIAXone 1,000 MG VIAL (IM USE) IM STA (23:00)
[2021-09-29] MEDS ORDERED: predniSONE 20 MG TAB PO STA (23:13)
--- NOTE | 2021-09-29 23:15 | ED ---
Extremity Problem HPI - General Chief complaint: Extremity Problem,Nontraumatic Stated complaint: R hand numbness-Sent by Dr Mccray Time Seen by Provider: 09/29/21 20:44 Source: patient Mode of arrival: ambulatory Limitations: no limitations - History of Present Illness Initial comments: Patient is an 86-year-old male presenting with chief complaint right hand swelling. Patient states the swelling has been ongoing for the last several months. States that with the last few days the swelling has worsened, this makes it difficult to make a fist or activity such as writing her eating. Patient states when he tries to close his hand tightly he sometimes experiences some numbness and tingling, which is alleviated when he relaxes the hand. He denies any break in skin, fever, chills, red streaks up the arm, redness, discoloration. - Related Data Home Medications Medication Instructions Recorded Confirmed Aspirin EC [Ecotrin Low Dose] 81 mg PO DIRECTED 10/31/16 01/13/19 Metoprolol Tartrate [Lopressor] 25 mg PO BID 10/31/16 01/13/19 amLODIPine [Norvasc] 5 mg PO HS 08/04/18 01/13/19 Atorvastatin Calcium [Lipitor] 40 mg PO HS 01/13/19 01/13/19 Previous Rx's Medication Instructions Recorded Cephalexin [Keflex] 500 mg PO Q12HR 7 Days #14 cap 09/29/21 Allergies Allergy/AdvReac Type Severity Reaction Status Date / Time Sulfa (Sulfonamide Allergy Rash/Hives Verified 09/29/21 18:46 Antibiotics) Review of Systems ROS Statement: Those systems with pertinent positive or pertinent negative responses have been documented in the HPI. ROS Other: All systems not noted in ROS Statement are negative. Past Medical History Past Medical History: Coronary Artery Disease (CAD), CVA/TIA, Hyperlipidemia, Hypertension, Renal Disease Additional Past Medical History / Comment(s): IRREGULAR. NO RESIDUAL WITH CVA, ASA RESOLVED ALL SYMPTOMS., brain bleed History of Any Multi-Drug Resistant Organisms: None Reported Past Surgical History: Heart Catheterization Additional Past Surgical History / Comment(s): 10-27-14 cabg x4 vessel with left internal mammary artery, open saphenous vein harvest. 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 Past Anesthesia/Blood Transfusion Reactions: No Reported Reaction Additional Past Anesthesia/Blood Transfusion Reaction / Comment(s): HAS HAD BLOOD TRANSFUSIONS IN THE PAST WITHOUT REACTIONS. Past Psychological History: No Psychological Hx Reported Smoking Status: Never smoker Past Alcohol Use History: None Reported Past Drug Use History: None Reported - Past Family History Father Family Medical History: Cancer Mother Family Medical History: Coronary Artery Disease (CAD) Additional Family Medical History / Comment(s): CABG. General Exam Limitations: no limitations General appearance: alert, in no apparent distress Head exam: Present: atraumatic, normocephalic, normal inspection Eye exam: Present: normal appearance, EOMI. Absent: scleral icterus, periorbital swelling Respiratory exam: Present: normal lung sounds bilaterally. Absent: respiratory distress, wheezes, rales, rhonchi, stridor Cardiovascular Exam: Present: regular rate, normal rhythm, normal heart sounds. Absent: systolic murmur, diastolic murmur, rubs, gallop, clicks Right Hand Wrist exam: Present: swelling. Absent: full ROM (Limited secondary to swelling), tenderness, deformity, erythema Vascular: Absent: vascular compromise Neurological exam: Present: alert, oriented X3, CN II-XII intact Psychiatric exam: Present: normal affect, normal mood Skin exam: Present: warm, dry, intact, normal color. Absent: rash Course Vital Signs 09/29/21 09/29/21 09/29/21 18:41 22:20 23:39 Temperature 97.9 F Pulse Rate 73 77 Respiratory 20 16 Rate Blood Pressure 191/87 160/106 164/98 O2 Sat by Pulse 99 96 Oximetry Medical Decision Making - Medical Decision Making Patient is a 86-year-old male presenting with chief complaint of right hand swelling. Patient has hand swelling at baseline, however it has worsened over the last few days. Patient states he has limited range of motion and pain with wrist extension. On examination there is some pain with range of motion, mild swelling of the hand. Full sensation intact. Lab work is grossly negative. X- ray shows no acute process. Patient is given dose of prednisone here in the ER for likely etiology of arthritis. Patient is also being treated for potential infectious etiology with one dose of Rocephin in the ER and Keflex twice a day for 7 days prescribed at home. Follow-up with PCP in one to 2 days. Report back to ER with any new or worsening symptoms. Discussed return parameters answered all questions. Patient conveyed verbal understanding and agreed to the plan. I discussed this case with my attending Dr. Light. - Lab Data Result diagrams: 09/29/21 21:12 09/29/21 21:12 Lab Results 09/29/21 09/29/21 09/29/21 Range/Units 21:12 21:12 22:48 WBC 9.7 (3.8-10.6) k/uL RBC 5.27 (4.30-5.90) m/uL Hgb 16.2 (13.0-17.5) gm/dL Hct 51.3 (39.0-53.0) % MCV 97.2 (80.0-100.0) fL MCH 30.8 (25.0-35.0) pg MCHC 31.7 (31.0-37.0) g/dL RDW 12.9 (11.5-15.5) % Plt Count 163 (150-450) k/uL MPV 9.8 Neutrophils % 75 % Lymphocytes % 15 % Monocytes % 7 % Eosinophils % 2 % Basophils % 0 % Neutrophils # 7.3 (1.3-7.7) k/uL Lymphocytes # 1.4 (1.0-4.8) k/uL Monocytes # 0.6 (0-1.0) k/uL Eosinophils # 0.2 (0-0.7) k/uL Basophils # 0.0 (0-0.2) k/uL ESR 6 (0-15) mm/hr Sodium 138 (137-145) mmol/L Potassium 4.1 (3.5-5.1) mmol/L Chloride 106 (98-107) mmol/L Carbon Dioxide 25 (22-30) mmol/L Anion Gap 7 mmol/L BUN 18 (9-20) mg/dL Creatinine 0.97 (0.66-1.25) mg/dL Est GFR (CKD-EPI)AfAm 82 (>60 ml/min/1.73 sqM) Est GFR (CKD-EPI)NonAf 71 (>60 ml/min/1.73 sqM) Glucose 123 H (74-99) mg/dL Plasma Lactic Acid Chris (0.7-2.0) mmol/L Calcium 9.2 (8.4-10.2) mg/dL Total Bilirubin 1.4 H (0.2-1.3) mg/dL AST 25 (17-59) U/L ALT 20 (4-49) U/L Alkaline Phosphatase 96 (38-126) U/L C-Reactive Protein 0.7 (<1.0) mg/dL Total Protein 7.2 (6.3-8.2) g/dL Albumin 4.5 (3.5-5.0) g/dL 09/29/21 Range/Units 22:50 WBC (3.8-10.6) k/uL RBC (4.30-5.90) m/uL Hgb (13.0-17.5) gm/dL Hct (39.0-53.0) % MCV (80.0-100.0) fL MCH (25.0-35.0) pg MCHC (31.0-37.0) g/dL RDW (11.5-15.5) % Plt Count (150-450) k/uL MPV Neutrophils % % Lymphocytes % % Monocytes % % Eosinophils % % Basophils % % Neutrophils # (1.3-7.7) k/uL Lymphocytes # (1.0-4.8) k/uL Monocytes # (0-1.0) k/uL Eosinophils # (0-0.7) k/uL Basophils # (0-0.2) k/uL ESR (0-15) mm/hr Sodium (137-145) mmol/L Potassium (3.5-5.1) mmol/L Chloride (98-107) mmol/L Carbon Dioxide (22-30) mmol/L Anion Gap mmol/L BUN (9-20) mg/dL Creatinine (0.66-1.25) mg/dL Est GFR (CKD-EPI)AfAm (>60 ml/min/1.73 sqM) Est GFR (CKD-EPI)NonAf (>60 ml/min/1.73 sqM) Glucose (74-99) mg/dL Plasma Lactic Acid Chris 0.9 (0.7-2.0) mmol/L Calcium (8.4-10.2) mg/dL Total Bilirubin (0.2-1.3) mg/dL AST (17-59) U/L ALT (4-49) U/L Alkaline Phosphatase (38-126) U/L C-Reactive Protein (<1.0) mg/dL Total Protein (6.3-8.2) g/dL Albumin (3.5-5.0) g/dL Disposition Clinical Impression: Arthritis, Cellulitis Disposition: HOME SELF-CARE Condition: Good Instructions (If sedation given, give patient instructions): Cellulitis (ED), Osteoarthritis (ED) Additional Instructions: Follow-up with PCP in one to 2 days. Report back to ER with any new or worsening symptoms. Take medication as prescribed. Prescriptions: Cephalexin [Keflex] 500 mg PO Q12HR 7 Days #14 cap Is patient prescribed a controlled substance at d/c from ED?: No Referrals: Bertha Mccray MD [Primary Care Provider] - 1-2 days Time of Disposition: 23:15
[2021-09-29 23:40] VITALS: BP 164/98
== END 2021-09-29 23:40 | disposition home or self-care (01) ==
LOC: EC 17:47
DX: L03.113 Cellulitis of right upper limb (principal); M19.041 Primary osteoarthritis, right hand; I25.10 Atherosclerotic heart disease of native coronary artery without angina pectoris; E78.5 Hyperlipidemia, unspecified; I10 Essential (primary) hypertension; Z86.73 Personal history of transient ischemic attack (TIA), and cerebral infarction without residual deficits; Z79.82 Long term (current) use of aspirin; Z79.899 Other long term (current) drug therapy; Z88.2 Allergy status to sulfonamides
CPT/HCPCS: 36415; 80053; 85652; 83605; 85025; 86140; 73110; 73130; 99284; 96372; J0696; J7512

== ENCOUNTER 2022-01-24 16:29 | Inpatient (IN) | payer MEDICARE ==
[2022-01-24] MEDS ORDERED: ASPIRIN 81 MG PO STA (16:48)
[2022-01-24] MEDS ORDERED: SODIUM CHLORIDE 0.9% 500 ML 500 ML IV STA (16:48)
[2022-01-24] MEDS ORDERED: DEXTROSE 5% IN WATER 100 ML with AMIODARONE 150 MG IV ONE (16:52)
[2022-01-24] MEDS ORDERED: AMIODARONE 360 MG in DEXTROSE 5% IN WATER 200 ML IV ONE ×2 (16:52)
[2022-01-24] MEDS ORDERED: SODIUM CHLORIDE 0.9% 1,000 ML IV STA ×2 (16:53→17:48)
--- NOTE | 2022-01-24 16:55 | ED ---
General Adult HPI - General Chief complaint: Altered Mental Status Stated complaint: VTach Time Seen by Provider: 01/24/22 16:37 Source: patient, EMS, RN notes reviewed, old records reviewed Mode of arrival: EMS Limitations: no limitations - History of Present Illness Initial comments: Patient is an 86-year-old male who presents emergency Department over concern for an atypical rhythm. We notified by EMS on the patient's weight the hospital that it looked like he was in ventricular tachycardia versus possible SVT. They administered 2 doses of adenosine without success and then synchronized cardioverted the patient. He was hypotensive at throughout with systolics in the 80s, and pulses present. EMS was concerning for V. tach with a pulse versus SVT with aberrancy versus A. fib with RVR.. Patient converted to a narrow complex tachycardia afterwards and blood pressure is improved. Presents for further evaluation. Patient states he was at the [employer] playing bridge with friends when he felt like he had used the restroom. Verner lightheaded and weak. A nurse was there he states and felt like his pulse was very rapid which is when EMS was called. Patient went to the bathroom and when he came back EMS had arrived. States he felt like he had to defecate, and had a large solid bowel movement prior to being transported by EMS here. Denies any sort of chest pain, shortness of breath. States he felt fatigued and weak all over the is somewhat sudden onset while he was playing cards. Denies any abdominal pain, nausea, vomiting. Denies any diarrhea. He is not on blood thinners. No history of atrial fibrillation or other tachycardia. States is the first time it happened. States he did not feel well in the ambulance, and then after the shock which was painful by EMS, he states he felt improved. Currently states the fatigue is improved. Denies any chest pain, shortness breath, abdominal pain currently. Is asymptomatic at this time. Presents for further evaluation. Does endorse having a history of cardiac disease as well as cardiac bypass surgery. - Related Data Home Medications Medication Instructions Recorded Confirmed Aspirin EC [Ecotrin Low Dose] 81 mg PO W/SUPPER 10/31/16 01/24/22 Metoprolol Tartrate [Lopressor] 25 mg PO W/SUPPER 10/31/16 01/24/22 amLODIPine [Norvasc] 5 mg PO W/SUPPER 08/04/18 01/24/22 Atorvastatin [Lipitor] 20 mg PO W/SUPPER 01/24/22 01/24/22 Calcium Carbonate [Calcium] 600 mg PO W/SUPPER 01/24/22 01/24/22 Triamcinolone 0.1% Cream [Kenalog 1 applicatio TOPICAL BID PRN 01/24/22 01/24/22 0.1% Cream] polyethylene glycoL 3350 [Miralax] 17 gm PO DAILY 01/24/22 01/24/22 Allergies Allergy/AdvReac Type Severity Reaction Status Date / Time Sulfa (Sulfonamide Allergy Rash/Hives Verified 01/24/22 18:37 Antibiotics) Review of Systems ROS Statement: Those systems with pertinent positive or pertinent negative responses have been documented in the HPI. Review of Systems: CONST: Denies fever EYES: Denies blurry vision ENT: Denies nasal congestion C/V: Denies Chest pain RESP: Denies shortness of breath GI: Denies abdominal pain : Denies dysuria SKIN: Denies rash. MSK: Denies joint pain. NEURO: Denies headache ROS Other: All systems not noted in ROS Statement are negative. Past Medical History Past Medical History: Coronary Artery Disease (CAD), CVA/TIA, Hyperlipidemia, Hypertension, Renal Disease Additional Past Medical History / Comment(s): IRREGULAR. NO RESIDUAL WITH CVA, ASA RESOLVED ALL SYMPTOMS., brain bleed History of Any Multi-Drug Resistant Organisms: None Reported Past Surgical History: Heart Catheterization Additional Past Surgical History / Comment(s): 10-27-14 cabg x4 vessel with left internal mammary artery, open saphenous vein harvest. 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 Past Anesthesia/Blood Transfusion Reactions: No Reported Reaction Additional Past Anesthesia/Blood Transfusion Reaction / Comment(s): HAS HAD BLOOD TRANSFUSIONS IN THE PAST WITHOUT REACTIONS. Past Psychological History: No Psychological Hx Reported Smoking Status: Never smoker Past Alcohol Use History: None Reported Past Drug Use History: None Reported - Past Family History Father Family Medical History: Cancer Mother Family Medical History: Coronary Artery Disease (CAD) Additional Family Medical History / Comment(s): CABG. General Exam - General Exam Comments Initial Comments: General: Appears in no acute distress. HEAD: Normal with no signs of head trauma. EYES: PERRLA, EOMI, conjunctiva normal, no discharge. ENT: Hearing grossly intact, normal oropharynx. RESPIRATORY: Clear breath sounds bilaterally. No wheezes, rales, or rhonchi. No hypoxia, no increased work of breathing. C/V: Irregular rate and rhythm. S1 and S2 auscultated, no edema, peripheral pulses 2+ and intact throughout ABD: Abd is soft, nontender, nondistended EXT: Normal range of motion, no obvious acute deformity. Patient does have a left upper extremity prosthetic. SKIN: No rashes or lesions observed on exposed skin. NEURO: Alert and oriented x 4. Cranial nerves II-XII intact. No focal sensory or strength deficits. Limitations: no limitations Course Vital Signs 01/24/22 01/24/22 01/24/22 16:31 17:00 17:15 Temperature Pulse Rate 100 Pulse Rate [ Apical] Pulse Rate [ 80 86 Pipe Fitter Apprentice ] Respiratory 16 20 18 Rate Blood Pressure 125/88 Blood Pressure 116/77 135/84 [Right Arm] O2 Sat by Pulse 98 96 96 Oximetry 01/24/22 01/24/22 01/24/22 17:30 17:45 18:00 Temperature Pulse Rate Pulse Rate [ Apical] Pulse Rate [ 80 85 79 Pipe Fitter Apprentice ] Respiratory 17 15 15 Rate Blood Pressure Blood Pressure 138/93 120/89 121/78 [Right Arm] O2 Sat by Pulse 97 96 95 Oximetry 01/24/22 01/24/22 01/24/22 18:15 18:30 19:37 Temperature 98.5 F Pulse Rate 75 Pulse Rate [ 74 Apical] Pulse Rate [ 73 73 74 Pipe Fitter Apprentice ] Respiratory 18 16 18 Rate Blood Pressure 127/80 Blood Pressure 115/73 121/84 127/80 [Right Arm] O2 Sat by Pulse 94 L 95 98 Oximetry 01/24/22 21:06 Temperature Pulse Rate 60 Pulse Rate [ Apical] Pulse Rate [ Pipe Fitter Apprentice ] Respiratory 16 Rate Blood Pressure 136/90 Blood Pressure [Right Arm] O2 Sat by Pulse 97 Oximetry Medical Decision Making - Medical Decision Making Based on the patient's presentation and physical exam, I'm concerned for either. Son onset of ventricular tachycardia with a pulse versus atrial flutter ab lation with RVR versus SVT with the parents he. Patient did not respond to adenosine per EMS. Patient did respond to seek denies cardioversion by EMS. Currently has stable vital signs, and appears to be in atrial fibrillation with controlled rate. No history of A. fib. Is asymptomatic at this time. Does have a history of cardiac bypass. I discussed with the patient over concern for the above rhythms, and patient will be started on a heparin drip as he is a new onset A. fib, an amiodarone drip as interpretation of his rhythm strip was concerning for A. fib with RVR versus possible ventricular tachycardia. Goal is rhythm control. He will be given an aspirin 324 mg. He'll be given a 1 L fluid bolus. We'll obtain cardiopulmonary labs including a d-dimer. He was in agreement with this plan. Patient was seen in trauma bay 1. Patient's current EKG shows atrial fibrillation. Chest x-ray as interpreted by myself reveals no acute cardiopulmonary process. No infiltrate. Patient's laboratory studies returned remarkable for an elevated leukocytosis of 13.9 which is likely reactive. Patient's d-dimer is greater than 34.1. Laboratory studies are remarkable for a [place] eye with a creatinine 1.65. Troponin is elevated to 0.149 the patient was cardioverted prior to arrival. BNP is within acceptable limits. Urinalysis is unremarkable. I updated the patient as well as family members. I did recommend that we obtain a CT angiogram to rule out PE and he was in agreement with this plan. We'll also obtain a CT abdomen and pelvis due to symptoms of constipation just prior to all of his other symptoms. CT angiogram of the chest as interpreted by myself reveals no evidence of PE. There are chronic CABG changes. CT abdomen and pelvis as interpreted by myself reveals no infectious etiology. No other obvious intra-abdominal process. 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 Reevaluation come patient remains stable. He has already received aspirin 324 mg. He was started on a heparin drip for what appears to be new onset atrial fibrillation. He has been on an amiodarone drip for his episode of A. fib with RVR versus V. tach earlier for rhythm control. He is resting comfortably with no acute complaints at this time. I would like to admit him for cardiology evaluation. He was in agreement this plan. We will trend his troponin. Echo was ordered. We also obtained venous duplexes of the bilateral lower extremities. Cardiology was consulted. Did speak with the admitting physician, Dr. Segundo who was in agreement this plan. - Lab Data Result diagrams: 01/24/22 17:52 01/24/22 16:52 Lab Results 01/24/22 01/24/22 01/24/22 Range/Units 16:52 16:52 16:52 WBC (3.8-10.6) k/uL RBC (4.30-5.90) m/uL Hgb (13.0-17.5) gm/dL Hct (39.0-53.0) % MCV (80.0-100.0) fL MCH (25.0-35.0) pg MCHC (31.0-37.0) g/dL RDW (11.5-15.5) % Plt Count (150-450) k/uL MPV Neutrophils % % Lymphocytes % % Monocytes % % Eosinophils % % Basophils % % Neutrophils # (1.3-7.7) k/uL Lymphocytes # (1.0-4.8) k/uL Monocytes # (0-1.0) k/uL Eosinophils # (0-0.7) k/uL Basophils # (0-0.2) k/uL PT 11.9 (9.0-12.0) sec INR 1.2 H (<1.2) APTT 19.2 L (22.0-30.0) sec D-Dimer >34.10 H (<0.60) mg/L FEU Sodium 136 L (137-145) mmol/L Potassium 4.0 (3.5-5.1) mmol/L Chloride 104 (98-107) mmol/L Carbon Dioxide 17 L (22-30) mmol/L Anion Gap 15 mmol/L BUN 25 H (9-20) mg/dL Creatinine 1.65 H (0.66-1.25) mg/dL Est GFR (CKD-EPI)AfAm 43 (>60 ml/min/1.73 sqM) Est GFR (CKD-EPI)NonAf 37 (>60 ml/min/1.73 sqM) Glucose 254 H (74-99) mg/dL Calcium 8.8 (8.4-10.2) mg/dL Magnesium 2.0 (1.6-2.3) mg/dL Total Bilirubin 1.9 H (0.2-1.3) mg/dL AST 38 (17-59) U/L ALT 31 (4-49) U/L Alkaline Phosphatase 73 (38-126) U/L Troponin I (0.000-0.034) ng/mL NT-Pro-B Natriuret Pep pg/mL Total Protein 6.5 (6.3-8.2) g/dL Albumin 4.4 (3.5-5.0) g/dL Urine Color Light Yellow Urine Appearance Clear (Clear) Urine pH 5.5 (5.0-8.0) Ur Specific [place] 1.026 (1.001-1.035) Urine Protein 1+ H (Negative) Urine Glucose (UA) 1+ H (Negative) Urine Ketones 1+ H (Negative) Urine Blood Trace H (Negative) Urine Nitrite Negative (Negative) Urine Bilirubin Negative (Negative) Urine Urobilinogen <2.0 (<2.0) mg/dL Ur Leukocyte Esterase Negative (Negative) Urine RBC 1 (0-5) /hpf Urine WBC 4 (0-5) /hpf Urine Mucus Rare H (None) /hpf 01/24/22 01/24/22 01/24/22 Range/Units 16:52 17:52 17:52 WBC 13.9 H (3.8-10.6) k/uL RBC 4.71 (4.30-5.90) m/uL Hgb 15.1 (13.0-17.5) gm/dL Hct 46.4 (39.0-53.0) % MCV 98.6 (80.0-100.0) fL MCH 32.1 (25.0-35.0) pg MCHC 32.5 (31.0-37.0) g/dL RDW 12.7 (11.5-15.5) % Plt Count 160 (150-450) k/uL MPV 9.3 Neutrophils % 91 % Lymphocytes % 4 % Monocytes % 5 % Eosinophils % 0 % Basophils % 0 % Neutrophils # 12.6 H (1.3-7.7) k/uL Lymphocytes # 0.6 L (1.0-4.8) k/uL Monocytes # 0.6 (0-1.0) k/uL Eosinophils # 0.1 (0-0.7) k/uL Basophils # 0.0 (0-0.2) k/uL PT (9.0-12.0) sec INR (<1.2) APTT (22.0-30.0) sec D-Dimer (<0.60) mg/L FEU Sodium (137-145) mmol/L Potassium (3.5-5.1) mmol/L Chloride (98-107) mmol/L Carbon Dioxide (22-30) mmol/L Anion Gap mmol/L BUN (9-20) mg/dL Creatinine (0.66-1.25) mg/dL Est GFR (CKD-EPI)AfAm (>60 ml/min/1.73 sqM) Est GFR (CKD-EPI)NonAf (>60 ml/min/1.73 sqM) Glucose (74-99) mg/dL Calcium (8.4-10.2) mg/dL Magnesium (1.6-2.3) mg/dL Total Bilirubin (0.2-1.3) mg/dL AST (17-59) U/L ALT (4-49) U/L Alkaline Phosphatase (38-126) U/L Troponin I 0.149 H* (0.000-0.034) ng/mL NT-Pro-B Natriuret Pep 660 pg/mL Total Protein (6.3-8.2) g/dL Albumin (3.5-5.0) g/dL Urine Color Urine Appearance (Clear) Urine pH (5.0-8.0) Ur Specific [place] (1.001-1.035) Urine Protein (Negative) Urine Glucose (UA) (Negative) Urine Ketones (Negative) Urine Blood (Negative) Urine Nitrite (Negative) Urine Bilirubin (Negative) Urine Urobilinogen (<2.0) mg/dL Ur Leukocyte Esterase (Negative) Urine RBC (0-5) /hpf Urine WBC (0-5) /hpf Urine Mucus (None) /hpf - EKG Data -: EKG Interpreted by Me EKG Comments: 12-lead Electrocardiogram Interpretation Note EKG was reviewed and interpreted by myself. 12-lead ECG performed at 1640 is interpreted by me as revealing atrial fibrillation at a rate of 92 beats per minute. [place] is normal. QRS durations 106 ms, QTc is 434 ms.. There were no ST or T wave abnormalities to suggest myocardial ischemia or injury. R wave progression across the precordium was satisfactory. By my interpretation this EKG is non-diagnostic for acute ischemia. When compared with EKG from December 2018, patient now appears to be in atrial fibrillation which is new. Critical Care Time Critical Care Time: Yes Total Critical Care Time: 35 Critical Care Time: Upon my evaluation, this patient had a high probability of imminent or life- threatening deterioration due to new-onset atrial fibrillation status post cardioversion for either V. tach or A. fib in the field, elevated troponin, which required my direct attention, intervention, and personal management. I have personally provided 35 minutes of critical care time exclusive of time spent on separately billable procedures. Time includes review of laboratory data, radiology results, discussion with consultants, and monitoring for potential decompensation. Interventions were performed as documented in my note. Disposition Clinical Impression: Atrial fibrillation with RVR, Atrial fibrillation status post cardioversion, Elevated troponin, Elevated d-dimer Narrative: cardioversion Disposition: ADMITTED IP TO THIS HOSP Condition: Serious Time of Disposition: 18:45
[2022-01-24] MEDS ORDERED: HEPARIN SODIUM 1,000 UN/ML (10ML VL) IV PRN (16:56)
[2022-01-24] MEDS ORDERED: HEPARIN SODIUM 1,000 UN/ML (10ML VL) IV ONE (16:56)
[2022-01-24 17:21] LABS: Albumin 4.4 g/dL (3.5-5.0); Calcium 8.8 mg/dL (8.4-10.2); Total Bilirubin 1.9 mg/dL (0.2-1.3); Total Protein 6.5 g/dL (6.3-8.2)
[2022-01-24 17:36] LABS: INR 1.2 (<1.2); Prothrombin Time 11.9 sec (9.0-12.0)
[2022-01-24 17:37] LABS: Partial Thromboplastin Time 19.2 sec (22.0-30.0)
[2022-01-24 18:03] LABS: Basophils % (A) 0 %; Eosinophils # (A) 0.1 k/uL (0-0.7); Eosinophils % (A) 0 %; HCT 46.4 % (39.0-53.0); HGB 15.1 gm/dL (13.0-17.5); Lymphocytes # (A) 0.6 k/uL (1.0-4.8); Lymphocytes % (A) 4 %; MCH 32.1 pg (25.0-35.0); MCHC 32.5 g/dL (31.0-37.0); MCV 98.6 fL (80.0-100.0); Mean Platelet Volume 9.3; Monocytes # (A) 0.6 k/uL (0-1.0); Monocytes % (A) 5 %; Neutrophils # (A) 12.6 k/uL (1.3-7.7); Neutrophils % (A) 91 %; Platelet Count 160 k/uL (150-450); RBC 4.71 m/uL (4.30-5.90); RDW 12.7 % (11.5-15.5); WBC 13.9 k/uL (3.8-10.6)
[2022-01-24] MEDS: HEPARIN SOD,PORK IN 0.45% NACL 25,000 UNIT in 0.45% NACL 1 250ML.BAG IV SCH (18:30)
--- NOTE | 2022-01-24 18:32 | XR ---
EXAMINATION TYPE: XR chest 2V DATE OF EXAM: 01/24/2022 5:56 PM COMPARISON: Chest radiographs from 01/13/2019 TECHNIQUE: XR chest 2V Frontal and lateral views of the chest. CLINICAL INDICATION:Male, 86 years old with history of Chest Pain; FINDINGS: Lungs/Pleura: There is no evidence of pleural effusion, focal consolidation, or pneumothorax. Pulmonary vascularity: Unremarkable. Heart/mediastinum: Cardiomediastinal silhouette is enlarged and stable. Musculoskeletal: No acute osseous pathology. Midline sternotomy wires are noted. IMPRESSION: No acute cardiopulmonary disease/process. Similar exam dated prior in 2018.
--- NOTE | 2022-01-24 18:39 | CT ---
EXAMINATION TYPE: CT chest angio for PE CT DLP: 1446.5 mGycm, Automated exposure control for dose reduction was used. DATE OF EXAM: 01/24/2022 6:18 PM COMPARISON: Chest radiograph from same day. CLINICAL INDICATION:Male, 86 years old with history of Elevated dimer, concern for PE; elevated d-dim er TECHNIQUE/CONTRAST: CTA scan of the thorax is performed with IV Contrast, patient injected with 80 mL of Isovue 370, pulm onary embolism protocol. MIP images are created and reviewed. FINDINGS: Pulmonary Artery: There is no evidence for a central filling defect within the pulmonary vasculature to suggest acute pulmonary embolism. Limited evaluation of the segmental and subsegmental branches se condary to bolus timing. The pulmonary artery is of normal size. Lungs/Pleura: No evidence of focal consolidation, pleural effusion or pneumothorax. Airway: Large airways are patent. Heart: Heart is mildly enlarged for side. There is post CABG changes to the coronary arteries. [place] te to severe coronary artery atherosclerosis. Vasculature: No evidence of aortic aneurysm. The great vessels of the aorta are patent. Extensive ath erosclerosis of the arterial vasculature most proximal splenic artery. Mediastinum: No gross evidence of adenopathy. Musculoskeletal: No acute osseous abnormalities, multilevel disc degeneration changes throughout the spine. Soft Tissues: Unremarkable. Lower neck: No significant findings. Upper Abdomen: Gallstones are seen in the gallbladder. Calcified granulomas within the spleen. IMPRESSION: 1. No evidence of central pulmonary embolism. Limited evaluation of the segmental and subsegmental br anches. 2. Cardiomegaly with post CABG changes.
--- NOTE | 2022-01-24 18:45 | CT ---
EXAMINATION TYPE: CT abdomen pelvis w con CT DLP: 1446 mGycm, Automated exposure control for dose reduction was used. DATE OF EXAM: 01/24/2022 6:17 PM COMPARISON: CT abdomen pelvis most recent from 09/05/2012 CLINICAL INDICATION:Male, 86 years old with history of abd pain; TECHNIQUE: Axial CT of the abdomen and pelvis. Sagittal and coronal reformats were created on a [employer] workstation. Contrast used: mL of , Oral contrast used: FINDINGS: LOWER CHEST: Unremarkable ABDOMEN LIVER: Hepatic cyst GALLBLADDER AND BILE DUCTS: Layering increased densities within the lumen consistent with gallstones are present. PANCREAS: Unremarkable. SPLEEN: Unremarkable. ADRENAL GLANDS: Unremarkable. KIDNEYS AND URETERS: Left nonobstructing renal calculus. No evidence of hydronephrosis. PELVIS BLADDER: Mild focal thickening of the superior aspect of the bladder wall measuring up to 6 cm. REPRODUCTIVE: Prostate is enlarged in size measuring 4.6 cm in transverse dimension. ABDOMEN & PELVIS STOMACH AND BOWEL: No evidence of bowel obstruction. Colonic diverticula are seen throughout the colo n. PERITONEUM: No evidence of pneumoperitoneum or free fluid. VASCULATURE: No evidence of aortic aneurysm. Atherosclerosis of the arterial vasculature. There is in frarenal aortic saccular aneurysm dilation measuring up to 2.4 cm. Second portion duodenal diverticul um. Colon is relatively nondistended. MUSCULOSKELETAL: No acute osseous abnormalities, multilevel disc degeneration changes throughout the spine. Grade 1 anterolisthesis of L5 on S1. No evidence of spondylolysis. LYMPH NODES: No gross evidence for lymphadenopathy. SOFT TISSUE/ABDOMINAL WALL: Left fat filled inguinal hernia. IMPRESSION: 1. No evidence for acute intra-abdominal process. 2. Bladder wall thickening on the superior aspect best appreciated on sagittal imaging, correlate wit h urinalysis, consider for direct visualization. 3. Colonic diverticulosis. 4. Cholelithiasis 5. Infrarenal saccular dilation of the aorta measuring up to 2.4 cm. Similar to 2013.
[2022-01-24] MEDS ORDERED: MAGNESIUM SULFATE-D5W PMX 1 GM in DEXTROSE/WATER 1 100ML.BAG IVPB ONE (18:56)
[2022-01-24] MEDS ORDERED: NALOXONE 0.4 MG/ML 1 ML VIAL IV PRN (18:57)
[2022-01-24] MEDS: SODIUM CHLORIDE 0.9% 1,000 ML IV SCH (19:44)
[2022-01-24 19:54] LABS: Appearance,Urine Clear (Clear); Bilirubin,Urine Negative (Negative); Blood,Urine Trace (Negative); Color,Urine Light Yellow; Glucose,Urine (UA) 1+ (Negative); Ketones,Urine 1+ (Negative); Leukocyte Esterase,Urine Negative (Negative); Mucus,Urine Rare /hpf; Nitrite,Urine Negative (Negative); PH, Urine 5.5 (5.0-8.0); Protein,Urine 1+ (Negative); RBC,Urine 1 /hpf (0-5); Specific Gravity,Urine 1.026 (1.001-1.035); Urobilinogen,Urine <2.0 mg/dL (<2.0); WBC,Urine 4 /hpf (0-5)
[2022-01-24] MEDS: AMIODARONE 450 MG in DEXTROSE 5% IN WATER 250 ML IV SCH ×2 (23:46)
--- NOTE | 2022-01-25 00:34 | US ---
EXAMINATION TYPE: US venous doppler duplex LE DATE OF EXAM: 01/25/2022 12:27 AM COMPARISON: NONE CLINICAL HISTORY: elevated dimer, eval for duplex. elevated d-dimer. On heparin SIDE PERFORMED: Bilateral TECHNIQUE: The lower extremity deep venous system is examined utilizing real time linear array sonog davion with graded compression, doppler sonography and color-flow sonography. VESSELS IMAGED: Common Femoral Vein Deep Femoral Vein Greater Saphenous Vein * Femoral Vein Popliteal Vein Small Saphenous Vein * Proximal Calf Veins (* superficial vessels) Right Leg: Negative for DVT Left Leg: Negative for DVT IMPRESSION: No evidence of deep vein thrombosis in both legs.
--- NOTE | 2022-01-25 08:41 | P.CRDCN ---
History of Present Illness Consult date: 01/25/22 Consult reason: atrial fibrillation History of present illness: History of present illness: This is am 86-year-old male patient of Dr. Heri Driscoll with past history of hypertension, coronary artery disease status post CAB[place] [address] Ed kunz, TIA, hyperlipidemia. Patient was playing cards and was not feeling well went to the bathroom and and subsequently feeling lightheaded and weak. His pulse was rapid and EMS was called. Patient then went into the bathroom had a large bowel movement which was soft and normal no blood. When EMS arrived they found the patient in of V. tach versus SVT and gave 2 doses of Adenosine and subsequently performed a synchronized cardioversion and patient went into what was thought to be SVT. Upon arrival to the ER he was in atrial fibrillation and is subsequently converted to sinus rhythm. Patient denies having any chest pain or shortness of breath. He denies any symptoms at the time of evaluation. *EKG atrial fibrillation *Laboratory studies WBC 13.9, creatinine 1.65 with baseline of 0.97. Troponin 0.149, 1.66, 2.13 *Chest x-ray shows no acute cardiopulmonary process *CTA of the chest is negative for pulmonary embolism *Echocardiogram 04/2018 revealed normal ejection fraction 50%, mild aortic regurgitation, mild mitral regurgitation, mild tricuspid regurgitation, mild pulmonary regurgitation Review Of Systems: At the time of my evaluation: Constitutional: No fever, no chills. No weakness, fatigue or lethargy. EENT: No headache. No dizziness. Lungs: No shortness of breath, cough, no sputum production. No wheezing. Cardiovascular: No chest pain, no lower extremity edema. No palpitations. No paroxysmal nocturnal dyspnea. No orthopnea. No lightheadedness or dizziness. No syncopal episodes. Abdominal: No abdominal pain. No nausea, vomiting. No diarrhea. No constipation. No bloody or tarry stools.. No loss of appetite. Genitourinary: No dysuria.. No urinary retention. Musculoskeletal: No myalgias. No muscle weakness, no gait dysfunction, no frequent falls. No back pain. No neck pain. Integumentary: No wounds, no lesions. No rash or pruritus. No unusual bruising. Neurologic: No aphasia. No facial droop. No change in mentation. No head injury. No headache. No paralysis. No paresthesia. Psychiatric: No depression. No anxiety. Endocrine: No abnormal blood sugars. Physical examination: Gen: This is an 86-year-old male. He is resting in bed and appears to be comfortable and in no acute distress. VS: Reviewed HEENT: Head is atraumatic, normocephalic. Pupils equal, round. Sclerae is anicteric. NECK: Supple. No JVD. No lymphadenopathy. No thyromegaly. LUNGS: Clear to auscultation. No wheezes or rhonchi. No intercostal retractions. HEART: Regular rate and rhythm. No murmur. ABDOMEN: Soft. Bowel sounds are present. No masses. No tenderness. EXTREMITIES: No pedal edema. No calf tenderness. NEUROLOGICAL: Patient is awake, alert and oriented x3. Cranial nerves 2 through 12 are grossly intact. Assessment: Non-ST elevated myocardial infarction Ventricular tachycardia New onset atrial fibrillation, paroxysmal Acute kidney injury Coronary artery disease status post CABG 2014 TIA Hyperlipidemia Hypertension Plan: Patient is currently on amiodarone drip which will be continued until bag is empty and then transitioned to oral amiodarone 400 mg twice daily Continue patient on heparin drip Continue patient on aspirin 81 mg daily, Lipitor, Lopressor Obtain stat 2-D echocardiogram and Doppler study to assess cardiac structure and function Patient has been advised to undergo cardiac catheterization to evaluate coronary arteries. This will be performed tomorrow by Dr. BARRETT Guevara with plan to hydrate the patient for the next 24 hours due to acute kidney injury. Further recommendations to follow based upon clinical course Thank you kindly for this consultation. Nurse practitioner note has been reviewed, I agree with documented findings and plan of care. Patient was seen and examined. Past Medical History Past Medical History: Coronary Artery Disease (CAD), CVA/TIA, Hyperlipidemia, Hypertension, Renal Disease Additional Past Medical History / Comment(s): IRREGULAR. NO RESIDUAL WITH CVA, ASA RESOLVED ALL SYMPTOMS., brain bleed History of Any Multi-Drug Resistant Organisms: None Reported Past Surgical History: Heart Catheterization Additional Past Surgical History / Comment(s): 10-27-14 cabg x4 vessel with left internal mammary artery, open saphenous vein harvest. 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 Past Anesthesia/Blood Transfusion Reactions: No Reported Reaction Additional Past Anesthesia/Blood Transfusion Reaction / Comment(s): HAS HAD BLOOD TRANSFUSIONS IN THE PAST WITHOUT REACTIONS. Past Psychological History: No Psychological Hx Reported Smoking Status: Never smoker Past Alcohol Use History: None Reported Past Drug Use History: None Reported - Past Family History Father Family Medical History: Cancer Mother Family Medical History: Coronary Artery Disease (CAD) Additional Family Medical History / Comment(s): CABG. Medications and Allergies Home Medications Medication Instructions Recorded Confirmed Type Aspirin EC [Ecotrin Low Dose] 81 mg PO W/SUPPER 10/31/16 01/24/22 History Metoprolol Tartrate [Lopressor] 25 mg PO W/SUPPER 10/31/16 01/24/22 History amLODIPine [Norvasc] 5 mg PO W/SUPPER 08/04/18 01/24/22 History Atorvastatin [Lipitor] 20 mg PO W/SUPPER 01/24/22 01/24/22 History Calcium Carbonate [Calcium] 600 mg PO W/SUPPER 01/24/22 01/24/22 History Triamcinolone 0.1% Cream [Kenalog 1 applicatio TOPICAL BID PRN 01/24/22 01/24/22 History 0.1% Cream] polyethylene glycoL 3350 [Miralax] 17 gm PO DAILY 01/24/22 01/24/22 History Allergies Allergy/AdvReac Type Severity Reaction Status Date / Time Sulfa (Sulfonamide Allergy Rash/Hives Verified 01/24/22 18:37 Antibiotics) Physical Exam Vitals: Vital Signs Temp Pulse Pulse Pulse Pulse Resp BP 01/25/22 04:00 97.9 F 50 L 18 01/25/22 01:54 60 18 01/24/22 23:52 97.6 F 60 18 01/24/22 22:15 74 74 59 L 18 01/24/22 22:03 97.7 F 59 L 18 01/24/22 21:06 60 16 136/90 01/24/22 19:37 98.5 F 75 74 74 18 127/80 01/24/22 18:30 73 16 01/24/22 18:15 73 18 01/24/22 18:00 79 15 01/24/22 17:45 85 15 01/24/22 17:30 80 17 01/24/22 17:15 86 18 01/24/22 17:00 80 20 01/24/22 16:31 100 16 125/88 BP Pulse Ox 01/25/22 04:00 146/74 95 01/25/22 01:54 01/24/22 23:52 134/75 94 L 01/24/22 22:15 01/24/22 22:03 129/73 99 01/24/22 21:06 97 01/24/22 19:37 127/80 98 01/24/22 18:30 121/84 95 01/24/22 18:15 115/73 94 L 01/24/22 18:00 121/78 95 01/24/22 17:45 120/89 96 01/24/22 17:30 138/93 97 01/24/22 17:15 135/84 96 01/24/22 17:00 116/77 96 01/24/22 16:31 98 Intake and Output 01/24/22 01/25/22 01/25/22 22:59 06:59 14:59 Intake Total 600 Output Total 450 Balance 150 Intake: Intake, IV Titration 600 Amount Sodium Chloride 0.9% 1, 600 000 ml @ 75 mls/hr IV . [id number] [facility] Rx#:[id number] Output: Urine 450 Other: Voiding Method Toilet Toilet Urinal Urinal # Voids 1 # Bowel Movements 1 Weight 71.668 kg Results 01/25/22 10:08 01/25/22 10:08 Cardiac Enzymes 01/24/22 01/24/22 01/24/22 Range/Units 16:52 16:52 20:54 AST 38 (17-59) U/L Troponin I 0.149 H* 1.660 H* (0.000-0.034) ng/mL 01/24/22 Range/Units 23:58 AST (17-59) U/L Troponin I 2.130 H* (0.000-0.034) ng/mL Coagulation 01/24/22 01/24/22 Range/Units 16:52 23:58 PT 11.9 (9.0-12.0) sec APTT 19.2 L 56.7 H (22.0-30.0) sec CBC 01/24/22 Range/Units 17:52 WBC 13.9 H (3.8-10.6) k/uL RBC 4.71 (4.30-5.90) m/uL Hgb 15.1 (13.0-17.5) gm/dL Hct 46.4 (39.0-53.0) % Plt Count 160 (150-450) k/uL Comprehensive Metabolic Panel 01/24/22 Range/Units 16:52 Sodium 136 L (137-145) mmol/L Potassium 4.0 (3.5-5.1) mmol/L Chloride 104 (98-107) mmol/L Carbon Dioxide 17 L (22-30) mmol/L BUN 25 H (9-20) mg/dL Creatinine 1.65 H (0.66-1.25) mg/dL Glucose 254 H (74-99) mg/dL Calcium 8.8 (8.4-10.2) mg/dL AST 38 (17-59) U/L ALT 31 (4-49) U/L Alkaline Phosphatase 73 (38-126) U/L Total Protein 6.5 (6.3-8.2) g/dL Albumin 4.4 (3.5-5.0) g/dL Current Medications Generic Name Dose Route Start Last Admin Trade Name Freq PRN Reason Stop Dose Admin Amlodipine Besylate 5 mg 01/25/22 17:30 Amlodipine 5 Mg Tab PO W/SUPPER KELLE Aspirin 81 mg 01/25/22 17:30 Aspirin 81 Mg PO W/SUPPER KELLE Atorvastatin Calcium 20 mg 01/25/22 17:30 Atorvastatin 20 Mg Tab PO W/SUPPER KELLE Heparin Sodium (Porcine) 0 unit 01/24/22 16:56 Heparin Sodium 1,000 Un/Ml (10ml Vl) IV PER PROTOCOL PRN Low PTT Protocol Amiodarone HCl 450 mg/ 250 mls @ 16.667 mls/hr 01/24/22 23:00 01/24/22 23:46 Dextrose/Water IV 01/25/22 16:59 0.5 mg/min .Q15H KELLE 16.667 mls/hr Administration Protocol 0.5 MG/MIN Heparin Sodium/Sodium Chloride 250 mls @ 8.6 mls/hr 01/24/22 17:00 01/24/22 18:30 25,000 unit/ Sodium Chloride IV 12 units/kg/hr .Q24H KELLE 8.6 mls/hr Administration Protocol 12 UNITS/KG/HR Sodium Chloride 1,000 mls @ 75 mls/hr 01/24/22 19:00 01/24/22 19:44 Saline 0.9% IV 75 mls/hr .[id number] KELLE Administration Metoprolol Tartrate 25 mg 01/25/22 17:30 Metoprolol Tartrate 25 Mg Tab PO W/SUPPER KELLE Naloxone HCl 0.2 mg 01/24/22 18:57 Naloxone 0.4 Mg/Ml 1 Ml Vial IV Q2M PRN Opioid Reversal Intake and Output 01/24/22 01/25/22 01/25/22 22:59 06:59 14:59 Intake Total 600 Output Total 450 Balance 150 Intake: Intake, IV Titration 600 Amount Sodium Chloride 0.9% 1, 600 000 ml @ 75 mls/hr IV . [id number] [facility] Rx#:[id number] Output: Urine 450 Other: Voiding Method Toilet Toilet Urinal Urinal # Voids 1 # Bowel Movements 1 Weight 71.668 kg 01/24/22 17:52 01/24/22 16:52
[2022-01-25] MEDS ORDERED: ALPRAZolam 0.25 MG TAB PO PRN (08:55)
[2022-01-25] MEDS ORDERED: ATORVASTATIN 80 MG TAB PO STA (08:55)
[2022-01-25] MEDS ORDERED: ASPIRIN 325 MG TAB PO STA (08:55)
[2022-01-25] MEDS ORDERED: ALPRAZolam 0.5 MG TAB PO PRN (08:55)
[2022-01-25] MEDS ORDERED: NITROGLYCERIN SL TABS 0.4 MG TAB SUBLINGUAL PRN (08:55)
[2022-01-25 10:22] LABS: Partial Thromboplastin Time 53.1 sec (22.0-30.0); Prothrombin Time 10.9 sec (9.0-12.0)
[2022-01-25 10:30] LABS: Basophils % (A) 0 %; Eosinophils # (A) 0.1 k/uL (0-0.7); Eosinophils % (A) 1 %; HCT 43.3 % (39.0-53.0); HGB 14.3 gm/dL (13.0-17.5); Lymphocytes # (A) 0.8 k/uL (1.0-4.8); Lymphocytes % (A) 11 %; MCH 32.4 pg (25.0-35.0); MCHC 33.1 g/dL (31.0-37.0); MCV 97.8 fL (80.0-100.0); Mean Platelet Volume 9.6; Monocytes # (A) 0.3 k/uL (0-1.0); Monocytes % (A) 4 %; Neutrophils # (A) 6.3 k/uL (1.3-7.7); Neutrophils % (A) 82 %; Platelet Count 120 k/uL (150-450); RBC 4.42 m/uL (4.30-5.90); RDW 13.3 % (11.5-15.5); WBC 7.6 k/uL (3.8-10.6)
[2022-01-25 11:09] LABS: Calcium 8.1 mg/dL (8.4-10.2)
[2022-01-25 11:11] LABS: Potassium 4.2 mmol/L (3.5-5.1)
[2022-01-25] MEDS: SODIUM CHLORIDE 0.9% 1,000 ML IV SCH ×2 (13:13→21:00)
--- NOTE | 2022-01-25 14:50 | P.HPIM ---
History of Present Illness H&P Date: 01/25/22 HISTORY OF PRESENT ILLNESS This is an 86-year-old male with past medical history of hypertension, coronary artery disease status post CABG, TIA, hyperlipidemia. Patient was playing cards with his friends started feeling he needs to have a bowel movement he went to the bathroom came back was feeling lightheaded and weak. He subsequently had a large bowel movement that was formed with no blood. EMS had been called because his heart rate was rapid. EMS brought the patient was in V. tach versus SVT and gave 2 doses of Adenosineand subsequently performed synchronized cardioversion and patient converted to what appeared to be a sinus tachycardia. Blood pressure initially was systolic in the 80s with improvement after cardioversion. Upon arrival, patient was in atrial fibrillation and is subsequently converted into atrial fibrillation. Emergency center, patient was started on amiodarone and heparin drips and patient was resumed on Lopressor. Patient's been seen by cardiology for non-ST elevated myocardial infection is scheduled for cardiac catheterization tomorrow. *Laboratory studies WBC 13.9, creatinine 1.65 with baseline of 0.97. Troponin 0.149, 1.66, 2.13 *Chest x-ray shows no acute cardiopulmonary process *CTA of the chest is negative for pulmonary embolism REVIEW OF SYSTEMS Constitutional: No fever, no chills, no night sweats. No weight change. Reports weakness, fatigue or lethargy. No daytime sleepiness. EENT: No headache. No blurred vision or double vision, no loss of vision. No loss of Hearing, no ringing in the ears, no dizziness. No nasal drainage or congestion. No epistaxis. No sore throat. Lungs: No shortness of breath, cough, no sputum production. No wheezing. Cardiovascular: No chest pain, no lower extremity edema. No palpitations. No paroxysmal nocturnal dyspnea. No orthopnea. Reports lightheadedness or dizziness. No syncopal episodes. Abdominal: No abdominal pain. No nausea, vomiting. No diarrhea. No constipation. No bloody or tarry stools. No loss of appetite. Genitourinary: No dysuria, increased frequency, urgency. No urinary retention. Musculoskeletal: No myalgias. No muscle weakness, no gait dysfunction, no jacques quent falls. No back pain. No neck pain. Integumentary: No wounds, no lesions. No rash or pruritus. No unusual bruising. No change in hair or nails. Neurologic: No aphasia. No facial droop. No change in mentation. No head injury. No headache. No paralysis. No paresthesia. Psychiatric: No depression. No anxiety. No mood swings. Endocrine: No abnormal blood sugars. No weight change. No excessive sweating or thirst. No cold intolerance. MEDICAL HISTORY Hypertension Coronary artery disease status post CABG TIA Hyperlipidemia Possible rheumatoid arthritis under the care of Dr. Cox SURGICAL HISTORY Cardiac catheterization CABG [place] [address] 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 He is currently drinking 1-2 bourbons per week and his last intake was on Sunday. FAMILY HISTORY Mother at age 83 with history of coronary artery disease status post CABG. Father at age 86 with lung cancer history of smoking. Patient has 2 brothe rs with no major medical problems. Patient has 10 children with no major medical problems. PHYSICAL EXAMINATION Gen: This is an 86-year-old male. He is resting in bed appears to be comfortable and in no acute distress HEENT: Head is atraumatic, normocephalic. Pupils equal, round. Sclerae is anicteric. NECK: Supple. No JVD. No lymphadenopathy. No thyromegaly. LUNGS: Clear to auscultation. No wheezes or rhonchi. No intercostal retractions. HEART: Regular rate and rhythm. No murmur. ABDOMEN: Soft. Bowel sounds are present. No masses. No tenderness. EXTREMITIES: No pedal edema. No calf tenderness. NEUROLOGICAL: Patient is awake, alert and oriented x3. Cranial nerves 2 through 12 are grossly intact. ASSESSMENT AND PLAN 1. Non-ST elevated myocardial infarction. Consult with cardiology appreciated. Patient continued on heparin drip with plan for cardiac catheterization tomorrow with Dr. BARRETT Guevara, obtain 2-D echocardiogram. Continue patient on aspirin 81 mg daily, atorvastatin 20 mg daily, Lopressor 25 mg with supper. 2. Ventricular tachycardia. Patient is continued on amiodarone drip with plan to transition to amiodarone 400 mg twice daily. 3. New onset atrial fibrillation, paroxysmal. Patient is continued on heparin drip, Lopressor. 4. Hypertension. Continue patient on Lopressor. 5. History of coronary artery disease and CABG. 6. History of TIA, stable. 7. Hyperlipidemia. Continue atorvastatin. 8. Possible rheumatoid arthritis under the care of Dr. Cox. 9. DVT prophylaxis. Heparin. 10. GI prophylaxis. Protonix. 11. [ ]. 12. COVID-19 testing negative. Patient has been hospitalized during a pandemic. Patient will be admitted to the hospital for a minimum of 2 night stay. DISCHARGE PLAN [ ]. Impression and plan of care have been directed as dictated by the signing physician. Margarita Enriquez nurse practitioner acting as scribe for signing physician. Past Medical History Past Medical History: Coronary Artery Disease (CAD), CVA/TIA, Hyperlipidemia, Hypertension, Renal Disease Additional Past Medical History / Comment(s): IRREGULAR. NO RESIDUAL WITH CVA, ASA RESOLVED ALL SYMPTOMS., brain bleed History of Any Multi-Drug Resistant Organisms: None Reported Past Surgical History: Heart Catheterization Additional Past Surgical History / Comment(s): 10-27-14 cabg x4 vessel with left internal mammary artery, open saphenous vein harvest. 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 Past Anesthesia/Blood Transfusion Reactions: No Reported Reaction Additional Past Anesthesia/Blood Transfusion Reaction / Comment(s): HAS HAD BLOOD TRANSFUSIONS IN THE PAST WITHOUT REACTIONS. Past Psychological History: No Psychological Hx Reported Smoking Status: Never smoker Past Alcohol Use History: None Reported Past Drug Use History: None Reported - Past Family History Father Family Medical History: Cancer Mother Family Medical History: Coronary Artery Disease (CAD) Additional Family Medical History / Comment(s): CABG. Medications and Allergies Home Medications Medication Instructions Recorded Confirmed Type Aspirin EC [Ecotrin Low Dose] 81 mg PO W/SUPPER 10/31/16 01/24/22 History Metoprolol Tartrate [Lopressor] 25 mg PO W/SUPPER 10/31/16 01/24/22 History amLODIPine [Norvasc] 5 mg PO W/SUPPER 08/04/18 01/24/22 History Atorvastatin [Lipitor] 20 mg PO W/SUPPER 01/24/22 01/24/22 History Calcium Carbonate [Calcium] 600 mg PO W/SUPPER 01/24/22 01/24/22 History Triamcinolone 0.1% Cream [Kenalog 1 applicatio TOPICAL BID PRN 01/24/22 01/24/22 History 0.1% Cream] polyethylene glycoL 3350 [Miralax] 17 gm PO DAILY 01/24/22 01/24/22 History Allergies Allergy/AdvReac Type Severity Reaction Status Date / Time Sulfa (Sulfonamide Allergy Rash/Hives Verified 01/24/22 18:37 Antibiotics) Physical Exam Vitals: Vital Signs Temp Pulse Pulse Pulse Pulse Resp BP 01/25/22 04:00 97.9 F 50 L 18 01/25/22 01:54 60 18 01/24/22 23:52 97.6 F 60 18 01/24/22 22:15 74 74 59 L 18 01/24/22 22:03 97.7 F 59 L 18 01/24/22 21:06 60 16 136/90 01/24/22 19:37 98.5 F 75 74 74 18 127/80 01/24/22 18:30 73 16 01/24/22 18:15 73 18 01/24/22 18:00 79 15 01/24/22 17:45 85 15 01/24/22 17:30 80 17 01/24/22 17:15 86 18 01/24/22 17:00 80 20 01/24/22 16:31 100 16 125/88 BP Pulse Ox 01/25/22 04:00 146/74 95 01/25/22 01:54 01/24/22 23:52 134/75 94 L 01/24/22 22:15 01/24/22 22:03 129/73 99 01/24/22 21:06 97 01/24/22 19:37 127/80 98 01/24/22 18:30 121/84 95 01/24/22 18:15 115/73 94 L 01/24/22 18:00 121/78 95 01/24/22 17:45 120/89 96 01/24/22 17:30 138/93 97 01/24/22 17:15 135/84 96 01/24/22 17:00 116/77 96 01/24/22 16:31 98 Intake and Output 01/24/22 01/25/22 01/25/22 22:59 06:59 14:59 Intake Total 600 Output Total 450 Balance 150 Intake: Intake, IV Titration 600 Amount Sodium Chloride 0.9% 1, 600 000 ml @ 75 mls/hr IV . [id number] [facility] Rx#:[id number] Output: Urine 450 Other: Voiding Method Toilet Toilet Urinal Urinal # Voids 1 # Bowel Movements 1 Weight 71.668 kg Results CBC & Chem 7: 01/25/22 10:08 01/25/22 10:08 Labs: Abnormal Lab Results - Last 24 Hours (Table) 01/24/22 01/24/22 01/24/22 Range/Units 16:52 16:52 16:52 WBC (3.8-10.6) k/uL Neutrophils # (1.3-7.7) k/uL Lymphocytes # (1.0-4.8) k/uL INR 1.2 H (<1.2) APTT 19.2 L (22.0-30.0) sec D-Dimer >34.10 H (<0.60) mg/L FEU Sodium 136 L (137-145) mmol/L Carbon Dioxide 17 L (22-30) mmol/L BUN 25 H (9-20) mg/dL Creatinine 1.65 H (0.66-1.25) mg/dL Glucose 254 H (74-99) mg/dL Total Bilirubin 1.9 H (0.2-1.3) mg/dL Troponin I (0.000-0.034) ng/mL Urine Protein 1+ H (Negative) Urine Glucose (UA) 1+ H (Negative) Urine Ketones 1+ H (Negative) Urine Blood Trace H (Negative) Urine Mucus Rare H (None) /hpf 01/24/22 01/24/22 01/24/22 Range/Units 16:52 17:52 20:54 WBC 13.9 H (3.8-10.6) k/uL Neutrophils # 12.6 H (1.3-7.7) k/uL Lymphocytes # 0.6 L (1.0-4.8) k/uL INR (<1.2) APTT (22.0-30.0) sec D-Dimer (<0.60) mg/L FEU Sodium (137-145) mmol/L Carbon Dioxide (22-30) mmol/L BUN (9-20) mg/dL Creatinine (0.66-1.25) mg/dL Glucose (74-99) mg/dL Total Bilirubin (0.2-1.3) mg/dL Troponin I 0.149 H* 1.660 H* (0.000-0.034) ng/mL Urine Protein (Negative) Urine Glucose (UA) (Negative) Urine Ketones (Negative) Urine Blood (Negative) Urine Mucus (None) /hpf 01/24/22 01/24/22 Range/Units 23:58 23:58 WBC (3.8-10.6) k/uL Neutrophils # (1.3-7.7) k/uL Lymphocytes # (1.0-4.8) k/uL INR (<1.2) APTT 56.7 H (22.0-30.0) sec D-Dimer (<0.60) mg/L FEU Sodium (137-145) mmol/L Carbon Dioxide (22-30) mmol/L BUN (9-20) mg/dL Creatinine (0.66-1.25) mg/dL Glucose (74-99) mg/dL Total Bilirubin (0.2-1.3) mg/dL Troponin I 2.130 H* (0.000-0.034) ng/mL Urine Protein (Negative) Urine Glucose (UA) (Negative) Urine Ketones (Negative) Urine Blood (Negative) Urine Mucus (None) /hpf Thrombosis Risk Factor Assmnt - Choose All That Apply Any of the Below Risk Factors Present?: No Other Risk Factors: Yes Each Risk Factor Represents 3 Points: Age 75 years or older Other congenital or acquired thrombophilia - If yes, enter type in comment: No Thrombosis Risk Factor Assessment Total Risk Factor Score: 3 Thrombosis Risk Factor Assessment Level: Moderate Risk
[2022-01-25] MEDS: AMIODARONE 450 MG in DEXTROSE 5% IN WATER 250 ML IV SCH ×2 (16:02)
[2022-01-25] MEDS ORDERED: METOPROLOL TARTRATE 25 MG TAB PO SCH (17:30)
[2022-01-25] MEDS: ATORVASTATIN 20 MG TAB PO SCH (18:43)
[2022-01-25] MEDS: amLODIPine 5 MG TAB PO SCH (18:44)
[2022-01-25] MEDS: ASPIRIN 81 MG PO SCH (18:44)
[2022-01-25] MEDS: HEPARIN SOD,PORK IN 0.45% NACL 25,000 UNIT in 0.45% NACL 1 250ML.BAG IV SCH ×2 (18:46→20:59)
--- NOTE | 2022-01-25 20:44 | CA ---
Transthoracic Echo Report Name: Byron Velazquez Age: 86 Gender: M : 1935 Exam Date: 01/25/2022 08:28 Exam Location: [facility] Ht (in): 68 Wt (lb): 158 Ordering Physician: Ron Kwong MD Attending/Referring Phys: Amada Cox MD Cash Clerk Aissatou Pierce RDCS Procedure CPT: Indications: afib, elevated trop Cardiac Hx: Technical Quality: Good Contrast 1: Total Dose (mL): Contrast 2: Total Dose (mL): MEASUREMENTS (Male / Female) Normal Values 2D ECHO LV Diastolic Diameter PLAX 4.9 cm 4.2 - 5.9 / 3.9 - 5.3 cm LV Systolic Diameter PLAX 3.4 cm IVS Diastolic Thickness 1.1 cm 0.6 - 1.0 / 0.6 - 0.9 cm LVPW Diastolic Thickness 1.2 cm 0.6 - 1.0 / 0.6 - 0.9 cm LV Relative Wall Thickness 0.5 RV Internal Dim ED PLAX 3.2 cm LA Systolic Diameter LX 5.0 cm 3.0 - 4.0 / 2.7 - 3.8 cm LV Diastolic Volume MOD 4C 102.8 cm??? LV Systolic Volume MOD 4C 54.5 cm??? LV Ejection Fraction MOD 4C 46.9 % LV Diastolic Length 4C 8.2 cm LV Systolic Length 4C 6.5 cm LV Diastolic Volume MOD 2C 82.9 cm??? LV Systolic Volume MOD 2C 49.1 cm??? LV Ejection Fraction MOD 2C 40.8 % LV Diastolic Length 2C 8.3 cm LV Systolic Length 2C 7.4 cm LA Volume 83.1 cm??? 18 - 58 / 22 - 52 cm??? M-MODE Aortic Root Diameter MM 3.9 cm MV E Point Septal Separation 1.2 cm AV Cusp Separation MM 1.6 cm DOPPLER AV Peak Velocity 162.2 cm/s AV Peak Gradient 10.5 mmHg AI Peak Velocity 448.8 cm/s AI Peak Gradient 80.6 mmHg AI Pressure Half Time 625.3 ms MV Area PHT 4.2 cm??? Mitral E Point Velocity 102.5 cm/s Mitral A Point Velocity 75.0 cm/s Mitral E to A Ratio 1.4 MV Deceleration Time 180.1 ms MV E' Velocity 6.0 cm/s Mitral E to MV E' Ratio 17.2 TR Peak Velocity 213.2 cm/s TR Peak Gradient 18.2 mmHg Right Ventricular Systolic Press 22.9 mmHg FINDINGS Left Ventricle Left ventricular ejection fraction is estimated at 50 %. Left ventricular cavity size normal. Mildly increased septal wall thickness. Inferobasal hypokinesia. Atypical septal motion Right Ventricle Normal right ventricular size. Right ventricular systolic pressure within normal limits. Right Atrium Normal right atrial size. Left Atrium Moderately increased left atrial diameter. Severely increased left atrial volume. Mildly increased left atrial area. No evidence for an atrial septal defect. Mitral Valve Mitral valve thickened. Mild mitral annular calcification. Aortic Valve Trileaflet aortic valve. Focal thickening of the aortic valve cusps. Tricuspid Valve Structurally normal tricuspid valve. Mild tricuspid regurgitation. Pulmonic Valve Pulmonic valve not well visualized. Pericardium Normal pericardium. No pericardial effusion. Aorta Mild aortic dilatation at the level of the sinuses of valsalva 39 mm CONCLUSIONS Normal left ventricle size. Ejection fraction is about 50% with inferobasal hypokinesia and atypical septal motion. Aortic valve sclerosis without restriction. Mild mitral and tricuspid insufficiency. No pericardial effusion Previewed by: Dr. Wes Guevara MD (Electronically Signed) Final Date: 25 January 2022 20:43
[2022-01-25] MEDS: AMIODARONE 200 MG TAB PO SCH (20:59)
[2022-01-26 05:53] LABS: Glucose,Whole Blood 115 mg/dL (70-110)
[2022-01-26] MEDS: PANTOPRAZOLE 40 MG TABLET PO SCH (05:58)
[2022-01-26] MEDS: AMIODARONE 200 MG TAB PO SCH ×2 (05:58→20:06)
[2022-01-26] MEDS ORDERED: ATORVASTATIN 80 MG TAB PO ONE (06:00)
[2022-01-26] MEDS ORDERED: ASPIRIN 325 MG TAB PO ONE (06:00)
[2022-01-26 06:32] LABS: HCT 45.1 % (39.0-53.0); HGB 14.6 gm/dL (13.0-17.5); MCH 32.2 pg (25.0-35.0); MCHC 32.3 g/dL (31.0-37.0); MCV 99.5 fL (80.0-100.0); Mean Platelet Volume 9.1; Platelet Count 148 k/uL (150-450); RBC 4.53 m/uL (4.30-5.90); RDW 12.8 % (11.5-15.5); WBC 7.3 k/uL (3.8-10.6)
[2022-01-26 06:54] LABS: Albumin 3.7 g/dL (3.5-5.0); Calcium 8.1 mg/dL (8.4-10.2); Potassium 3.8 mmol/L (3.5-5.1); Total Bilirubin 1.5 mg/dL (0.2-1.3); Total Protein 5.8 g/dL (6.3-8.2)
[2022-01-26] MEDS ORDERED: HEPARIN SODIUM,PORCINE 10,000 UNIT in SODIUM CHLORIDE 0.9% 1,000 ML IRRIGATION PRN (07:00)
[2022-01-26] MEDS ORDERED: HEPARIN SODIUM,PORCINE 2,500 UNIT in SODIUM CHLORIDE 0.9% 250 ML IRRIGATION PRN (07:00)
[2022-01-26] MEDS: polyethylene glycoL 3350 17 GM POWD.PACK PO SCH (10:38)
[2022-01-26] MEDS ORDERED: SODIUM CHLORIDE 0.9% 1,000 ML IV ONE (11:31)
[2022-01-26] MEDS ORDERED: MIDAZOLAM 2 MG/2 ML VIAL IVP ONE (11:40)
[2022-01-26] MEDS ORDERED: LIDOCAINE 1% INJ 10MG/ML (30 ML VIAL-PF) SQ ONE (11:47)
[2022-01-26] MEDS ORDERED: IOPAMIDOL-370 100ML BTL INJ ONE ×2 (12:07→12:44)
[2022-01-26] MEDS: ASPIRIN 81 MG PO SCH (16:50)
[2022-01-26] MEDS: ATORVASTATIN 20 MG TAB PO SCH (16:50)
[2022-01-26] MEDS: amLODIPine 5 MG TAB PO SCH (16:50)
[2022-01-26] MEDS: SODIUM CHLORIDE 0.9% 1,000 ML IV SCH (20:06)
[2022-01-26] MEDS: METOPROLOL TARTRATE 25 MG TAB PO SCH (20:06)
[2022-01-26] MEDS ORDERED: LOSARTAN 25 MG TAB PO SCH (21:00)
--- NOTE | 2022-01-27 00:44 | CC ---
CARDIAC CATHETERIZATION REPORT PROCEDURES PERFORMED: Coronary angiography and selective injection of bypass grafts and left internal mammary artery injection. PERFORMED BY: Dr. Case Guevara. ANESTHESIA: Moderate conscious sedation time was 54 minutes. The patient was administered Versed. Oxygen saturation, hemodynamics, and EKG were monitored closely. CLINICAL INFORMATION: Mr. Byron Velazquez is an 86-year-old gentleman with a history of hypertension, hyperlipidemia, previous TIA, who underwent aortocoronary bypass surgery because of significant coronary artery disease in September 2014. He had a BLEDSOE to LAD and 3 grafts to the circumflex system, one was to the first OM, another one was to the 3rd OM, and then posterolateral branch. Right coronary was small nondominant, had mild disease. His LAD had a 99% mid lesion. He was doing fairly well, but a couple of years after his bypass surgery, had a spontaneous intracranial hemorrhage and therefore, Plavix was discontinued. He was only on aspirin. He came into the hospital for an episode of near syncope while playing cards and was found to be initially in atrial fibrillation, but then had a sustained ventricular tachycardia, was shocked, and he converted to what seems to be in atrial fib shortly and then went back into sinus rhythm. He also had a troponin elevation and was advised cardiac cath after due discussion. CT angiogram was negative for pulmonary embolism. PROCEDURE NOTE: Under local anesthesia and strict aseptic precautions, a 6-Trinidadian introducer was placed in the left femoral artery. His initial catheterization was performed from the right side and there was tortuosity. Therefore, I chose to go from the left side. A standard JL4 diagnostic catheter was used to perform selective coronary angiography of the left system. I then used a Deborah catheter to perform selective coronary angiography of the right coronary artery and also the vein graft to the PLV branch, which came off from the right side. I then used an AR2 catheter to perform selective coronary angiography of the 2 other vein grafts, one was to the first and one was to the 3rd obtuse marginal branch of circumflex. I had difficulty getting into the subclavian artery because of heavy calcification and after some attempts with a [employer] wire and also with a Pete 1.5 curve wire, I decided to perform a subselective injection and I did this with the cuff inflated in the left arm. Subselective injection was actually adequate and suggested that there was no evidence of significant disease. Following this, the sheath was taken out and an Angio-Seal device was used to secure hemostasis and he was sent to the room in stable condition. LV pressures were not obtained. Echo revealed preserved systolic function. Findings on the cardiac cath were discussed in detail with the patient as well as his several children and I suggested we will pursue medical therapy and use amiodarone in view of his what seems to be in atrial fib degenerating into a ventricular tachycardia. However, I gave the option of EP study and defibrillator, but given his age and normal LV function, we will try amiodarone and do an event monitor to see if he has any breakthrough arrhythmia. This was explained to the patient and family. He will be hydrated. His BUN, creatinine will be checked tomorrow and he will be discharged on amiodarone 400 mg b.i.d. decreasing to 200 mg b.i.d. after 10 days or so. CORONARY ANGIOGRAPHY FINDINGS: Left Main Coronary Artery: Short patent disease-free vessel that bifurcates into LAD and circumflex. LEFT ANTERIOR DESCENDING CORONARY ARTERY: This vessel is totally occluded in the mid portion and the opacified vessel has diffuse disease and there is a 90% stenosis in the mid portion after that vessel is totally occluded without much antegrade flow. LEFT POSTERIOR CIRCUMFLEX CORONARY ARTERY: Technically, a very dominant vessel has about a 70% stenosis in the midportion, eccentric, then distally it gives off what seems to be a PDA branch. There are no obtuse marginal branches that come off. These have been bypassed. RIGHT CORONARY ARTERY: This is a small nondominant vessel, has limited area of myocardium supplied by it, has about a 30% to 40% narrowing, unchanged from 2015. SAPHENOUS VEIN GRAFT TO PLV BRANCH OF CIRCUMFLEX: This graft is widely patent at its origin, course and insertion site, and opacified. PLV branch is also free of significant disease. There is however diffuse disease within the PLV branch, but no critical stenosis. The body of the graft has minor irregularities. No significant disease. SAPHENOUS VEIN GRAFT TO THE THIRD OBTUSE MARGINAL BRANCH OF CIRCUMFLEX: This graft is widely patent at its origin, course, and insertion site and opacified. Third and fourth obtuse marginal branches have minor irregularities. No significant disease. SAPHENOUS VEIN GRAFT TO THE FIRST OBTUSE MARGINAL BRANCH OF CIRCUMFLEX: This is a decent sized graft almost looks like a diagonal graft, has minor irregularities. No significant disease and opacified diagonal is free of significant disease. I performed a subselective injection of the left internal mammary artery graft and this subselective injection suggests that the BLEDSOE is patent and opacifies the entire LAD. Has no significant disease. FINAL IMPRESSION: This patient has a left-dominant system, total occlusion of distal circumflex, mid LAD. No significant disease in the nondominant RCA. The vein graft to the diagonal/high first obtuse marginal is patent, free of significant disease. The vein graft to the 2nd or 3rd obtuse marginal is widely patent with decent flow with mild diffuse disease within the obtuse marginal. The vein graft to the PLV branch of circumflex is widely patent with mild diffuse disease within the branches. The BLEDSOE to LAD was subselectively injected, appears to be patent with decent flow. RECOMMENDATIONS: Continued medical therapy with addition of amiodarone and event monitor is advised. The patient will be discharged tomorrow if he remains stable after checking renal function. Findings were discussed with the patient and family. They understand all details. MMODL / IJN: [id number] /
[2022-01-27] MEDS: SODIUM CHLORIDE 0.9% 1,000 ML IV SCH ×2 (05:28→08:01)
[2022-01-27] MEDS: PANTOPRAZOLE 40 MG TABLET PO SCH (06:08)
[2022-01-27 07:32] LABS: Basophils % (A) 0 %; Eosinophils # (A) 0.1 k/uL (0-0.7); Eosinophils % (A) 1 %; HCT 47.5 % (39.0-53.0); Lymphocytes # (A) 0.8 k/uL (1.0-4.8); Lymphocytes % (A) 9 %; MCH 32.5 pg (25.0-35.0); MCHC 33.6 g/dL (31.0-37.0); MCV 96.9 fL (80.0-100.0); Monocytes # (A) 0.5 k/uL (0-1.0); Monocytes % (A) 6 %; Neutrophils % (A) 81 %; Platelet Count 134 k/uL (150-450); RDW 13.3 % (11.5-15.5); WBC 8.6 k/uL (3.8-10.6)
[2022-01-27 07:51] LABS: Albumin 3.8 g/dL (3.5-5.0); Calcium 8.3 mg/dL (8.4-10.2); Potassium 3.8 mmol/L (3.5-5.1); Total Bilirubin 1.8 mg/dL (0.2-1.3); Total Protein 5.8 g/dL (6.3-8.2)
[2022-01-27] MEDS: METOPROLOL TARTRATE 25 MG TAB PO SCH (08:00)
[2022-01-27] MEDS: AMIODARONE 200 MG TAB PO SCH (08:01)
[2022-01-27] MEDS: polyethylene glycoL 3350 17 GM POWD.PACK PO SCH (08:01)
[2022-01-27 08:14] VITALS: RESP 16; TEMP 97.8
[2022-01-27 11:28] VITALS: BP 147/71; PULSE 55
[2022-02-02] MEDS ORDERED: AMIODARONE 200 MG TAB PO SCH (09:00)
== END 2022-01-27 15:33 | disposition home or self-care (01) | DRG 281 ==
LOC: EC 16:29 → 3SCARD 18:59
PROVIDERS: ADMIT Internal Medicine; ATTEND Internal Medicine
PROC: 5A2204Z Restoration of Cardiac Rhythm, Single (ICD-10-PCS; 2022-01-24)
PROC: B2111ZZ Fluoroscopy of Multiple Coronary Arteries using Low Osmolar Contrast (ICD-10-PCS; 2022-01-24)
PROC: 4A023N7 Measurement of Cardiac Sampling and Pressure, Left Heart, Percutaneous Approach (ICD-10-PCS; principal; 2022-01-27)
PROC: B2131ZZ Fluoroscopy of Multiple Coronary Artery Bypass Grafts using Low Osmolar Contrast (ICD-10-PCS; 2022-01-27)
DX: I21.4 Non-ST elevation (NSTEMI) myocardial infarction (principal); I25.719 Atherosclerosis of autologous vein coronary artery bypass graft(s) with unspecified angina pectoris; I47.20 Ventricular tachycardia, unspecified; N17.9 Acute kidney failure, unspecified; I10 Essential (primary) hypertension; I71.9 Aortic aneurysm of unspecified site, without rupture; F10.10 Alcohol abuse, uncomplicated; M06.9 Rheumatoid arthritis, unspecified; I08.3 Combined rheumatic disorders of mitral, aortic and tricuspid valves; I95.9 Hypotension, unspecified; Z95.1 Presence of aortocoronary bypass graft; Z20.822 Contact with and (suspected) exposure to COVID-19; E78.5 Hyperlipidemia, unspecified; I48.0 Paroxysmal atrial fibrillation; D72.828 Other elevated white blood cell count; K59.00 Constipation, unspecified; R79.89 Other specified abnormal findings of blood chemistry; Z79.82 Long term (current) use of aspirin; Z79.899 Other long term (current) drug therapy; Z88.2 Allergy status to sulfonamides; Z86.73 Personal history of transient ischemic attack (TIA), and cerebral infarction without residual deficits; Z89.212 Acquired absence of left upper limb below elbow; Z82.49 Family history of ischemic heart disease and other diseases of the circulatory system; Z87.891 Personal history of nicotine dependence
CPT/HCPCS: 36415; 71046; 71275; 74177; 80048; 80053; 81001; 83735; 83880; 84484; 85025; 85027; 85379; 85610; 85730; 93005; 93270; 93306; 93459; 93970; 94760; 96361; 96365; 96366; 96367; 96368; 96376; 99291

== ENCOUNTER 2022-02-02 11:08 | Inpatient (IN) | payer MEDICARE ==
[2022-02-02] MEDS ORDERED: ASPIRIN 81 MG PO STA (11:18)
[2022-02-02] MEDS ORDERED: NITROGLYCERIN OINT 1 INCH/GM PACKET TOPICAL STA (11:18)
[2022-02-02 11:38] LABS: Basophils % (A) 0 %; Eosinophils # (A) 0.2 k/uL (0-0.7); Eosinophils % (A) 2 %; HCT 47.3 % (39.0-53.0); HGB 15.5 gm/dL (13.0-17.5); Lymphocytes # (A) 1.1 k/uL (1.0-4.8); Lymphocytes % (A) 14 %; MCH 31.6 pg (25.0-35.0); MCHC 32.9 g/dL (31.0-37.0); MCV 96.2 fL (80.0-100.0); Mean Platelet Volume 9.3; Monocytes # (A) 0.5 k/uL (0-1.0); Monocytes % (A) 6 %; Neutrophils # (A) 5.9 k/uL (1.3-7.7); Neutrophils % (A) 75 %; Platelet Count 174 k/uL (150-450); RBC 4.92 m/uL (4.30-5.90); RDW 13.2 % (11.5-15.5); WBC 7.9 k/uL (3.8-10.6)
--- NOTE | 2022-02-02 11:42 | XR ---
EXAMINATION TYPE: XR chest 2V DATE OF EXAM: 02/02/2022 COMPARISON: 01/24/2022 HISTORY: 86-year-old male with chest pain and shortness of breath TECHNIQUE: AP and lateral views FINDINGS: Electronic device projects along the periphery of the left upper chest. Median sternotomy wires and p ost-CABG clips in the mediastinum. Heart is mildly enlarged. Interstitial prominence. No connie consol idation or pleural effusion. IMPRESSION: Mild cardiomegaly. Some hypoventilatory and chronic appearing changes. No definite acute process.
[2022-02-02 11:55] LABS: Albumin 4.3 g/dL (3.5-5.0); Calcium 9.2 mg/dL (8.4-10.2); Potassium 4.4 mmol/L (3.5-5.1); Total Bilirubin 1.5 mg/dL (0.2-1.3); Total Protein 6.8 g/dL (6.3-8.2)
[2022-02-02 12:09] LABS: INR 0.9 (<1.2)
[2022-02-02] MEDS ORDERED: SODIUM CHLORIDE 0.9% 500 ML 500 ML IV STA (12:43)
[2022-02-02] MEDS ORDERED: NALOXONE 0.4 MG/ML 1 ML VIAL IV PRN (12:49)
[2022-02-02] MEDS ORDERED: SODIUM CHLORIDE 0.9% 1,000 ML IV STA (12:55)
--- NOTE | 2022-02-02 12:55 | ED ---
General Adult HPI - General Chief complaint: Chest Pain Stated complaint: Chest pain,low heart rate Time Seen by Provider: 02/02/22 11:11 Source: patient, EMS, RN notes reviewed, old records reviewed Mode of arrival: EMS Limitations: no limitations - History of Present Illness Initial comments: Patient is an 86-year-old male with past medical history remarkable for CAD, hypertension, was recently evaluated by myself and admitted for a run of V. tach as well as atrial fibrillation late last month, who received a cardiac coronary cath with no interventions at that time presents emergency Department complaining of right arm numbness which is resolved with nitroglycerin, as well as bradycardia. States he was attempting to use the restroom when he noticed that he was expressing some right arm numbness and discomfort. Was administered 2 tablets of nitroglycerin which resolved the pain. In symptoms. EMS was called, and they found he was bradycardic into the 30s. Patient did have some recent medication changes including addition of amiodarone as well as a beta jayne patient states he has been compliant with medications. Presents for further evaluation of this time. Endorse some mild lightheadedness earlier which has since resolved. Denies chest pain. Denies abdominal pain, nausea, vomiting. Denies any dyspnea. Denies any fevers, chills, cough. Presents for further evaluation at this time. - Related Data Home Medications Medication Instructions Recorded Confirmed Aspirin EC [Ecotrin Low Dose] 81 mg PO W/SUPPER 10/31/16 02/02/22 amLODIPine [Norvasc] 5 mg PO W/SUPPER 08/04/18 02/02/22 Atorvastatin [Lipitor] 20 mg PO W/SUPPER 01/24/22 02/02/22 Calcium Carbonate [Calcium] 600 mg PO W/SUPPER 01/24/22 02/02/22 Triamcinolone 0.1% Cream [Kenalog 1 applicatio TOPICAL BID PRN 01/24/22 02/02/22 0.1% Cream] polyethylene glycoL 3350 [Miralax] 17 gm PO DAILY 01/24/22 02/02/22 Otc Sleep Aid 1 tab PO HS 02/02/22 02/02/22 Previous Rx's Medication Instructions Recorded Amiodarone [Cordarone] 200 mg PO BID #60 tab 01/27/22 Losartan [Cozaar] 25 mg PO HS #30 tab 01/27/22 Metoprolol Tartrate [Lopressor] 25 mg PO BID #60 tab 01/27/22 Nitroglycerin Sl Tabs [Nitrostat] 0.4 mg SUBLINGUAL Q5M PRN #15 tab 01/27/22 Allergies Allergy/AdvReac Type Severity Reaction Status Date / Time Sulfa (Sulfonamide Allergy Rash/Hives Verified 02/02/22 12:03 Antibiotics) Review of Systems ROS Statement: Those systems with pertinent positive or pertinent negative responses have been documented in the HPI. Review of Systems: CONST: Denies fever EYES: Denies blurry vision ENT: Denies nasal congestion C/V: Denies Chest pain RESP: Denies shortness of breath GI: Denies abdominal pain : Denies dysuria SKIN: Denies rash. MSK: Denies joint pain. NEURO: Denies headache ROS Other: All systems not noted in ROS Statement are negative. Past Medical History Past Medical History: Coronary Artery Disease (CAD), CVA/TIA, Hyperlipidemia, Hypertension, Renal Disease Additional Past Medical History / Comment(s): IRREGULAR. NO RESIDUAL WITH CVA, ASA RESOLVED ALL SYMPTOMS., brain bleed History of Any Multi-Drug Resistant Organisms: None Reported Past Surgical History: Heart Catheterization Additional Past Surgical History / Comment(s): 10-27-14 cabg x4 vessel with left internal mammary artery, open saphenous vein harvest. 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 Past Anesthesia/Blood Transfusion Reactions: No Reported Reaction Additional Past Anesthesia/Blood Transfusion Reaction / Comment(s): HAS HAD BLOOD TRANSFUSIONS IN THE PAST WITHOUT REACTIONS. Past Psychological History: No Psychological Hx Reported Smoking Status: Never smoker Past Alcohol Use History: None Reported Past Drug Use History: None Reported - Past Family History Father Family Medical History: Cancer Mother Family Medical History: Coronary Artery Disease (CAD) Additional Family Medical History / Comment(s): CABG. General Exam - General Exam Comments Initial Comments: General: Appears in no acute distress. HEAD: Normal with no signs of head trauma. EYES: PERRLA, EOMI, conjunctiva normal, no discharge. ENT: Hearing grossly intact, normal oropharynx. RESPIRATORY: Clear breath sounds bilaterally. No wheezes, rales, or rhonchi. C/V: Bradycardic with a regular rhythm.. S1 and S2 auscultated, no edema, peripheral pulses 2+ and intact throughout ABD: Abd is soft, nontender, nondistended EXT: Chronic left upper extremity deformity below the elbow. SKIN: No rashes or lesions observed on exposed skin. NEURO: Alert and oriented x 4. Cranial nerves II-XII intact. No focal sensory or strength deficits. Limitations: no limitations Course Vital Signs 02/02/22 02/02/22 11:10 12:15 Temperature 97.8 F Pulse Rate 50 L 40 L Respiratory 18 18 Rate Blood Pressure 149/84 94/55 O2 Sat by Pulse 100 98 Oximetry Medical Decision Making - Medical Decision Making Based on the patient's presentation and physical exam, does appear that he presents today for symptomatic bradycardia as well as some right arm discomfort that improved with nitroglycerin. Etiology concerning his past medical history includes ACS. He does have a cardiac event monitor of the left chest. We will obtain a cardiopulmonary workup. He was in agreement this plan. I do suspect that this may be secondary to new medications for rate control that were started on the patient including metoprolol. We did discuss this and will continue to monitor. We will likely hold his metoprolol at this time. Vital signs are within acceptable limits. Patient's mildly bradycardic to 50, occasionally in the 40s. EKG showed no signs of acute ischemia. Patient's laboratory studies are remarkable for an determine troponin, BMP within acceptable limits. Remainder the labs are unremarkable. Chest x-ray as interpreted by myself reveals no evidence of acute cardiopulmonary process. No infiltrate. On reevaluation, patient remains asymptomatic at this time. Patient's heart rate fluctuates between 40 and 50. I would like to admit the patient at this time to observation to further monitor him. He was in agreement with this plan. Cardiology was consulted. I spoke with the patient's admitting physician, Dr. Segundo who was in agreement this plan and requested that I hold the metoprolol which I was in agreement with. Patient was admitted in stable condition to a telemetry bed. - Lab Data Result diagrams: 02/02/22 11:21 12 11:21 Lab Results 02/02/22 02/02/22 02/02/22 Range/Units 11:21 11:21 11:21 WBC 7.9 (3.8-10.6) k/uL RBC 4.92 (4.30-5.90) m/uL Hgb 15.5 (13.0-17.5) gm/dL Hct 47.3 (39.0-53.0) % MCV 96.2 (80.0-100.0) fL MCH 31.6 (25.0-35.0) pg MCHC 32.9 (31.0-37.0) g/dL RDW 13.2 (11.5-15.5) % Plt Count 174 (150-450) k/uL MPV 9.3 Neutrophils % 75 % Lymphocytes % 14 % Monocytes % 6 % Eosinophils % 2 % Basophils % 0 % Neutrophils # 5.9 (1.3-7.7) k/uL Lymphocytes # 1.1 (1.0-4.8) k/uL Monocytes # 0.5 (0-1.0) k/uL Eosinophils # 0.2 (0-0.7) k/uL Basophils # 0.0 (0-0.2) k/uL PT 10.0 (9.0-12.0) sec INR 0.9 (<1.2) APTT 22.0 (22.0-30.0) sec Sodium 140 (137-145) mmol/L Potassium 4.4 (3.5-5.1) mmol/L Chloride 103 (98-107) mmol/L Carbon Dioxide 30 (22-30) mmol/L Anion Gap 7 mmol/L BUN 20 (9-20) mg/dL Creatinine 1.23 (0.66-1.25) mg/dL Est GFR (CKD-EPI)AfAm 61 (>60 ml/min/1.73 sqM) Est GFR (CKD-EPI)NonAf 53 (>60 ml/min/1.73 sqM) Glucose 123 H (74-99) mg/dL Calcium 9.2 (8.4-10.2) mg/dL Magnesium 2.0 (1.6-2.3) mg/dL Total Bilirubin 1.5 H (0.2-1.3) mg/dL AST 22 (17-59) U/L ALT 21 (4-49) U/L Alkaline Phosphatase 76 (38-126) U/L Troponin I (0.000-0.034) ng/mL NT-Pro-B Natriuret Pep pg/mL Total Protein 6.8 (6.3-8.2) g/dL Albumin 4.3 (3.5-5.0) g/dL 02/02/22 02/02/22 Range/Units 11:21 11:21 WBC (3.8-10.6) k/uL RBC (4.30-5.90) m/uL Hgb (13.0-17.5) gm/dL Hct (39.0-53.0) % MCV (80.0-100.0) fL MCH (25.0-35.0) pg MCHC (31.0-37.0) g/dL RDW (11.5-15.5) % Plt Count (150-450) k/uL MPV Neutrophils % % Lymphocytes % % Monocytes % % Eosinophils % % Basophils % % Neutrophils # (1.3-7.7) k/uL Lymphocytes # (1.0-4.8) k/uL Monocytes # (0-1.0) k/uL Eosinophils # (0-0.7) k/uL Basophils # (0-0.2) k/uL PT (9.0-12.0) sec INR (<1.2) APTT (22.0-30.0) sec Sodium (137-145) mmol/L Potassium (3.5-5.1) mmol/L Chloride (98-107) mmol/L Carbon Dioxide (22-30) mmol/L Anion Gap mmol/L BUN (9-20) mg/dL Creatinine (0.66-1.25) mg/dL Est GFR (CKD-EPI)AfAm (>60 ml/min/1.73 sqM) Est GFR (CKD-EPI)NonAf (>60 ml/min/1.73 sqM) Glucose (74-99) mg/dL Calcium (8.4-10.2) mg/dL Magnesium (1.6-2.3) mg/dL Total Bilirubin (0.2-1.3) mg/dL AST (17-59) U/L ALT (4-49) U/L Alkaline Phosphatase (38-126) U/L Troponin I 0.014 (0.000-0.034) ng/mL NT-Pro-B Natriuret Pep 709 pg/mL Total Protein (6.3-8.2) g/dL Albumin (3.5-5.0) g/dL - EKG Data -: EKG Interpreted by Me EKG Comments: 12-lead Electrocardiogram Interpretation Note EKG was reviewed and interpreted by myself. 12-lead ECG performed at 1113 is interpreted by me as revealing sinus bradycardia at a rate of 53 beats per minute. Kipling is normal. MS interval is 158 ms, QRS ration is 118 ms, QTc is 473 ms.. There were no ST or T wave abnormalities to suggest myocardial ischemia or injury. R wave progression across the precordium was satisfactory. By my interpretation this EKG is non-diagnostic for acute ischemia. When compared with EKG from 01/24/2022, change remarkable for no sinus bradycardia, no atrial fibrillation. Disposition Clinical Impression: Bradycardia Disposition: ADMITTED IP TO THIS HOSP Condition: Stable Time of Disposition: 12:40
--- NOTE | 2022-02-02 14:23 | P.HPIM ---
History of Present Illness H&P Date: 02/02/22 HISTORY OF PRESENT ILLNESS This is an 86-year-old male with past medical history of hypertension, coronary artery disease status post CABG, TIA, hyperlipidemia. Patient had a recent hospitalization for ventricular tachycardia, non-ST elevated myocardial infarction. Echocardiogram revealed EF of 50% with inferior basal hypokinesia and atypical septal motion. Aortic valve sclerosis without restriction. Mild mitral and tricuspid insufficiency. Cardiac catheterization was performed by Dr. BARRETT Guevara which revealed left dominant system, total occlusion of the distal circumflex, mid LAD. No significant disease in the nondominant RCA. Main graft to the diagonal high first obtuse marginal is patent free of significant disease. The vein graft to the second or third obtuse marginal is widely patent with descending flow with mild diffuse disease within the obtuse marginal. The vein graft to the PLV branch of circumflex is widely patent with mild diffuse disease within the branches. The BLEDSOE to LAD was subselectively injected appears to be patent with decent flow. Recommendations were to continue medical therapy with the addition of amiodarone and event monitor was advised. Patient was discharged home on event monitor. Patient had a follow-up appointment in the office on Sunday and was feeling fine at that time. No medication changes were made. His follow-up appointment with cardiology was scheduled for February 15. Patient states that he has been taking MiraLAX on a daily basis and was feeling uncomfortable. He was working on his puzzles and he went into the bathroom had a very large bowel movement and then came back and sat down. He was not feeling very well and developed numbness in his right arm and shoulder. His son was present and they decided he should take a nitroglycerin. Patient took a total of 3 nitroglycerin spaced apart but did not have any chest pain. He did not have chest pain before taking nitroglycerin. They decided then to call EMS and he was brought into the hospital. He states he felt a little lightheaded or dizzy. No nausea, no chest pain and no shortness of breath. He still has all we'll numbness in the right arm and shoulder but mostly improved. CBC was unremarkable. Electrolytes and renal function within normal limits. Bl ood sugar 123. Total bilirubin 1.4 and other liver function tests were normal. ProBNP 709. Troponin 0.014. EKG was a sinus bradycardia at 53 bpm. laboratory monitor is sinus bradycardia in the 50s. Patient is seen in the emergency center waiting for a bed on the cardiac stepdown unit. Metoprolol has been held. Chest x-ray shows mild cardiomegaly. Some hypoventilatory and chronic appearing changes. No definite acute process. REVIEW OF SYSTEMS Constitutional: No fever, no chills, no night sweats. No weight change. Denies weakness, fatigue or lethargy. No daytime sleepiness. EENT: No headache. No blurred vision or double vision, no loss of vision. No loss of Hearing, no ringing in the ears, no dizziness. No nasal drainage or congestion. No epistaxis. No sore throat. Lungs: No shortness of breath, cough, no sputum production. No wheezing. Cardiovascular: No chest pain, no lower extremity edema. No palpitations. No paroxysmal nocturnal dyspnea. No orthopnea. Reports a little lightheadedness or dizziness. No syncopal episodes. Abdominal: No abdominal pain. No nausea, vomiting. No diarrhea. No constipation. No bloody or tarry stools. No loss of appetite. Genitourinary: No dysuria, increased frequency, urgency. No urinary retention. Musculoskeletal: No myalgias. No muscle weakness, no gait dysfunction, no frequent falls. No back pain. No neck pain. Integumentary: No wounds, no lesions. No rash or pruritus. No unusual bruising. No change in hair or nails. Neurologic: No aphasia. No facial droop. No change in mentation. No head injury. No headache. No paralysis. No paresthesia. Psychiatric: No depression. No anxiety. No mood swings. Endocrine: No abnormal blood sugars. No weight change. No excessive sweating or thirst. No cold intolerance. MEDICAL HISTORY Hypertension Coronary artery disease status post CABG TIA Hyperlipidemia Possible rheumatoid arthritis under the care of Dr. Cox History of ventricular tachycardia Non-ST elevated myocardial infarction SURGICAL HISTORY Cardiac catheterization x2 CABG [place] [address] 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 He is currently drinking 1-2 bourbons per week and his last intake was on Sunday. FAMILY HISTORY Mother at age 83 with history of coronary artery disease status post CABG. Father at age 86 with lung cancer history of smoking. Patient has 2 brothers with no major medical problems. Patient has 10 children with no major medical problems. PHYSICAL EXAMINATION Gen: This is an 86-year-old male. He is resting on the ER stretcher appears to be comfortable and in no acute distress. Patient's son is at bed side. HEENT: Head is atraumatic, normocephalic. Pupils equal, round. Sclerae is anicteric. NECK: Supple. No JVD. No lymphadenopathy. No thyromegaly. LUNGS: Clear to auscultation. No wheezes or rhonchi. No intercostal retractions. HEART: Regular rate and rhythm. No murmur. ABDOMEN: Soft. Bowel sounds are present. No masses. No tenderness. EXTREMITIES: No pedal edema. No calf tenderness. NEUROLOGICAL: Patient is awake, alert and oriented x3. Cranial nerves 2 through 12 are grossly intact. ASSESSMENT AND PLAN 1. Vague symptoms of not feeling well, right arm and shoulder numbness without weakness, concern for bradycardia and hypotension. Cardiology consult, hold metoprolol. 2. Recent Non-ST elevated myocardial infarction status post cardiac catheterization positive for coronary artery disease with recommendations for medical management. Continue patient on aspirin 81 mg daily, atorvastatin 20 mg daily, hold Lopressor 25 mg twice daily. 3. Ventricular tachycardia. Patient is continued on amiodarone 200 mg twice daily. 4. Hypertension. Continue patient on losartan 25 mg at bedtime. 5. History of coronary artery disease and CABG. continue as in #2. 6. History of TIA, stable. 7. Hyperlipidemia. Continue atorvastatin. 8. Possible rheumatoid arthritis under the care of Dr. Cox. 9. DVT prophylaxis. Heparin. 10. GI prophylaxis. Protonix. Patient will be admitted to the hospital for a minimum of 2 night stay. DISCHARGE PLAN Return home. Impression and plan of care have been directed as dictated by the signing physician. Margarita Enriquez nurse practitioner acting as scribe for signing physician. Past Medical History Past Medical History: Coronary Artery Disease (CAD), CVA/TIA, Hyperlipidemia, Hypertension, Renal Disease Additional Past Medical History / Comment(s): IRREGULAR. NO RESIDUAL WITH CVA, ASA RESOLVED ALL SYMPTOMS., brain bleed History of Any Multi-Drug Resistant Organisms: None Reported Past Surgical History: Heart Catheterization Additional Past Surgical History / Comment(s): 10-27-14 cabg x4 vessel with left internal mammary artery, open saphenous vein harvest. 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 Past Anesthesia/Blood Transfusion Reactions: No Reported Reaction Additional Past Anesthesia/Blood Transfusion Reaction / Comment(s): HAS HAD BLOOD TRANSFUSIONS IN THE PAST WITHOUT REACTIONS. Past Psychological History: No Psychological Hx Reported Smoking Status: Never smoker Past Alcohol Use History: None Reported Past Drug Use History: None Reported - Past Family History Father Family Medical History: Cancer Mother Family Medical History: Coronary Artery Disease (CAD) Additional Family Medical History / Comment(s): CABG. Medications and Allergies Home Medications Medication Instructions Recorded Confirmed Type Aspirin EC [Ecotrin Low Dose] 81 mg PO W/SUPPER 10/31/16 02/02/22 History amLODIPine [Norvasc] 5 mg PO W/SUPPER 08/04/18 02/02/22 History Atorvastatin [Lipitor] 20 mg PO W/SUPPER 01/24/22 02/02/22 History Calcium Carbonate [Calcium] 600 mg PO W/SUPPER 01/24/22 02/02/22 History Triamcinolone 0.1% Cream [Kenalog 1 applicatio TOPICAL BID PRN 01/24/22 02/02/22 History 0.1% Cream] polyethylene glycoL 3350 [Miralax] 17 gm PO DAILY 01/24/22 02/02/22 History Amiodarone [Cordarone] 200 mg PO BID #60 tab 01/27/22 02/02/22 Rx Losartan [Cozaar] 25 mg PO HS #30 tab 01/27/22 02/02/22 Rx Metoprolol Tartrate [Lopressor] 25 mg PO BID #60 tab 01/27/22 02/02/22 Rx Nitroglycerin Sl Tabs [Nitrostat] 0.4 mg SUBLINGUAL Q5M PRN #15 tab 01/27/22 02/02/22 Rx Otc Sleep Aid 1 tab PO HS 02/02/22 02/02/22 History Allergies Allergy/AdvReac Type Severity Reaction Status Date / Time Sulfa (Sulfonamide Allergy Rash/Hives Verified 02/02/22 12:03 Antibiotics) Physical Exam Vitals: Vital Signs Temp Pulse Resp BP Pulse Ox 02/02/22 12:15 40 L 18 94/55 98 02/02/22 11:10 97.8 F 50 L 18 149/84 100 Intake and Output 02/01/22 02/02/22 02/02/22 22:59 06:59 14:59 Other: Weight 75.5 kg Results CBC & Chem 7: 02/02/22 11:21 02/02/22 11:21 Labs: Abnormal Lab Results - Last 24 Hours (Table) 02/02/22 Range/Units 11:21 Glucose 123 H (74-99) mg/dL Total Bilirubin 1.5 H (0.2-1.3) mg/dL
[2022-02-02] MEDS ORDERED: ASPIRIN 81 MG PO SCH (17:30)
[2022-02-02] MEDS ORDERED: ATORVASTATIN 20 MG TAB PO SCH (17:30)
[2022-02-02] MEDS ORDERED: amLODIPine 5 MG TAB PO SCH (17:30)
[2022-02-02] MEDS: HEPARIN SODIUM,PORCINE/PF 5,000 UNIT/0.5 ML SYRINGE SQ SCH (19:56)
[2022-02-02] MEDS: AMIODARONE 200 MG TAB PO SCH (19:59)
[2022-02-02] MEDS ORDERED: LOSARTAN 25 MG TAB PO SCH (21:00)
[2022-02-03] MEDS ORDERED: METOPROLOL TARTRATE 12.5 MG TAB PO SCH (09:00)
[2022-02-03 09:34] LABS: Basophils # (A) 0.1 k/uL (0-0.2); Basophils % (A) 1 %; Eosinophils # (A) 0.2 k/uL (0-0.7); Eosinophils % (A) 2 %; HCT 47.4 % (39.0-53.0); HGB 15.7 gm/dL (13.0-17.5); Hypochromasia Slight; Lymphocytes # (A) 1.1 k/uL (1.0-4.8); Lymphocytes % (A) 12 %; MCHC 33.1 g/dL (31.0-37.0); MCV 99.8 fL (80.0-100.0); Mean Platelet Volume 9.6; Monocytes # (A) 0.7 k/uL (0-1.0); Monocytes % (A) 8 %; Neutrophils # (A) 6.3 k/uL (1.3-7.7); Neutrophils % (A) 73 %; Platelet Count 121 k/uL (150-450); RBC 4.75 m/uL (4.30-5.90); RDW 13.2 % (11.5-15.5); WBC 8.5 k/uL (3.8-10.6)
[2022-02-03] MEDS: HEPARIN SODIUM,PORCINE/PF 5,000 UNIT/0.5 ML SYRINGE SQ SCH (09:36)
[2022-02-03] MEDS: AMIODARONE 200 MG TAB PO SCH (10:02)
[2022-02-03 11:32] LABS: Potassium 4.3 mmol/L (3.5-5.1)
--- NOTE | 2022-02-03 11:50 | P.CRDCN ---
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 He follows in the office with Dr. Guevara. We have been asked to see in consultation for bradycardia. He p resents to the ER with complaints of right arm, right shoulder and right ear numbness. He was working on his puzzles and he went into the bathroom and had a bowel movement. He was not feeling very well and developed numbness in his right arm and shoulder and his right ear. His son was present and they decided he should take a nitroglycerin, unclear why. He states he did not understand the instructions. Patient took a total of 3 nitroglycerin spaced apart but did not have any chest pain. He did not have chest pain before taking nitroglycerin. They decided then to call EMS and he was brought into the hospital. He denies any chest pain, lightheadedness, dizziness, syncope or near-syncope. He did not lose his consciousness. He was recently admitted earlier this month 01/26/2022 with ventricular tachycardia s/p adenosine and paroxysmal atrial fibrillation, and concern for NSTEMI. Echocardiogram revealed EF of 50% with inferior basal hypokinesia and atypical septal motion. Aortic valve sclerosis without restriction. Mild mitral and tricuspid insufficiency. He underwent Cardiac catheterization with Dr. Guevara that revealed which revealed total occlusion of the distal circumflex, mid LAD. No significant disease in the nondominant RCA and all grafts were patent. No intervention needed. Recommendations were to continue medical therapy with the addition of amiodarone and event monitor was advised. Patient was discharged home on event monitor. DIAGNOSTICS * EKG reveals sinus bradycardia, heart rate 53, nonspecific T-wave abnormalities. * Recent Echo 01/25/2022 revealed EF 50%, inferior basal hypokinesia, and atypical septal motion, Mild mitral and tricuspid insufficiency. * Recent cardiac cath 01/26/2022 revealed left dominant system, total occlusion of the distal circumflex, mid LAD. No significant disease in the nondominant RCA. Main graft to the diagonal high first obtuse marginal is patent free of significant disease. The vein graft to the second or third obtuse marginal is widely patent with descending flow with mild diffuse disease within the obtuse marginal. The vein graft to the PLV branch of circumflex is widely patent with mild diffuse disease within the branches. The BLEDSOE to LAD was subselectively injected appears to be patent with decent flow. * Telemetry tracings indicate sinus bradycardia, heart rate 4950s * Chest xray no acute cardiopulmonary process. * Laboratory reviewed, troponin negative 3, sodium 142, potassium 4.3, BUN 17, serum creatinine 1.1, CBC unremarkable plt 121 * Current home cardiac medications include aspirin 81 mg daily, atorvastatin 20 mg nightly, losartan 25 mg daily, amlodipine 5 mg nightly, amiodarone 200 mg twice a day, metoprolol tartrate 25 mg twice a day REVIEW OF SYSTEMS At the time of my exam: CONSTITUTIONAL: Denies fever or chills. CARDIOVASCULAR: Denies chest pain, shortness of breath, orthopnea, PND or palpitations. RESPIRATORY: Denies cough. GASTROINTESTINAL: Denies abdominal pain, diarrhea, constipation, nausea or vomiting. MUSCULOSKELETAL: Denies myalgias. NEUROLOGIC: + right sided numbness. Denies tingling, headacbe or weakness. ENDOCRINE: Denies fatigue, weight change, polydipsia or polyurina. GENITOURINARY: Denies burning, hematuria or urgency with micturation. HEMATOLOGIC: Denies history of anemia or bleeding. PHYSICAL EXAMINATION Vitals reviewed CONSTITUTIONAL: No apparent distress. HEENT: Head is normocephalic. Pupils are equal, round. Sclerae anicteric. Mucous membranes of the mouth are moist. No JVD. No carotid bruit. CHEST EXAMINATION: Lungs are clear to auscultation. No chest wall tenderness is noted on palpation or with deep breathing. HEART EXAMINATION: Regular rate and rhythm. S1, S2 heard. No murmurs, gallops or rub. ABDOMEN: Soft, nontender. Positive bowel sounds. EXTREMITIES: 2+ peripheral pulses, no lower extremity edema and no calf tenderness. NEUROLOGIC EXAMINATION: Patient is awake, alert and oriented x3. 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 Guevara Nurse practitioner note has been reviewed by physician. Signing provider agrees with the documented findings, assessment, and plan of care. Past Medical History Past Medical History: Coronary Artery Disease (CAD), CVA/TIA, Hyperlipidemia, Hypertension, Renal Disease Additional Past Medical History / Comment(s): IRREGULAR. NO RESIDUAL WITH CVA, ASA RESOLVED ALL SYMPTOMS., brain bleed History of Any Multi-Drug Resistant Organisms: None Reported Past Surgical History: Heart Catheterization Additional Past Surgical History / Comment(s): 10-27-14 cabg x4 vessel with left internal mammary artery, open saphenous vein harvest. 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 Past Anesthesia/Blood Transfusion Reactions: No Reported Reaction Additional Past Anesthesia/Blood Transfusion Reaction / Comment(s): HAS HAD BLOOD TRANSFUSIONS IN THE PAST WITHOUT REACTIONS. Past Psychological History: No Psychological Hx Reported Smoking Status: Never smoker Past Alcohol Use History: None Reported Past Drug Use History: None Reported - Past Family History Father Family Medical History: Cancer Mother Family Medical History: Coronary Artery Disease (CAD) Additional Family Medical History / Comment(s): CABG. Medications and Allergies Home Medications Medication Instructions Recorded Confirmed Type Aspirin EC [Ecotrin Low Dose] 81 mg PO W/SUPPER 10/31/16 02/02/22 History amLODIPine [Norvasc] 5 mg PO W/SUPPER 08/04/18 02/02/22 History Atorvastatin [Lipitor] 20 mg PO W/SUPPER 01/24/22 02/02/22 History Calcium Carbonate [Calcium] 600 mg PO W/SUPPER 01/24/22 02/02/22 History Triamcinolone 0.1% Cream [Kenalog 1 applicatio TOPICAL BID PRN 01/24/22 02/02/22 History 0.1% Cream] polyethylene glycoL 3350 [Miralax] 17 gm PO DAILY 01/24/22 02/02/22 History Amiodarone [Cordarone] 200 mg PO BID #60 tab 01/27/22 02/02/22 Rx Losartan [Cozaar] 25 mg PO HS #30 tab 01/27/22 02/02/22 Rx Metoprolol Tartrate [Lopressor] 25 mg PO BID #60 tab 01/27/22 02/02/22 Rx Nitroglycerin Sl Tabs [Nitrostat] 0.4 mg SUBLINGUAL Q5M PRN #15 tab 01/27/22 02/02/22 Rx Otc Sleep Aid 1 tab PO HS 02/02/22 02/02/22 History Allergies Allergy/AdvReac Type Severity Reaction Status Date / Time Sulfa (Sulfonamide Allergy Rash/Hives Verified 02/02/22 12:03 Antibiotics) Physical Exam Vitals: Vital Signs Temp Pulse Pulse Resp BP BP Pulse Ox 02/03/22 04:00 97.5 F L 50 L 16 138/61 99 02/03/22 02:15 54 L 19 119/58 97 02/03/22 00:00 45 L 18 113/62 98 02/02/22 20:00 98 F 49 L 18 139/80 97 02/02/22 16:00 98.2 F 50 L 14 127/113 02/02/22 15:30 52 L 18 97/68 02/02/22 15:00 51 L 20 105/72 02/02/22 14:30 46 L 21 143/130 02/02/22 14:00 52 L 22 95/65 02/02/22 13:30 50 L 17 95/65 02/02/22 12:15 40 L 18 94/55 98 02/02/22 11:30 149/84 02/02/22 11:25 47 L 26 H 149/84 98 02/02/22 11:10 97.8 F 50 L 18 149/84 100 Intake and Output 02/02/22 02/03/22 02/03/22 22:59 06:59 14:59 Other: Voiding Method Urinal # Voids 1 1 Results 02/03/22 07:32 02/03/22 10:24 Cardiac Enzymes 02/02/22 02/02/22 02/02/22 Range/Units 11:21 11:21 14:30 AST 22 (17-59) U/L Troponin I 0.014 0.015 (0.000-0.034) ng/mL 02/02/22 Range/Units 19:14 AST (17-59) U/L Troponin I 0.016 (0.000-0.034) ng/mL Coagulation 02/02/22 Range/Units 11:21 PT 10.0 (9.0-12.0) sec APTT 22.0 (22.0-30.0) sec CBC 02/02/22 Range/Units 11:21 WBC 7.9 (3.8-10.6) k/uL RBC 4.92 (4.30-5.90) m/uL Hgb 15.5 (13.0-17.5) gm/dL Hct 47.3 (39.0-53.0) % Plt Count 174 (150-450) k/uL Comprehensive Metabolic Panel 02/02/22 Range/Units 11:21 Sodium 140 (137-145) mmol/L Potassium 4.4 (3.5-5.1) mmol/L Chloride 103 (98-107) mmol/L Carbon Dioxide 30 (22-30) mmol/L BUN 20 (9-20) mg/dL Creatinine 1.23 (0.66-1.25) mg/dL Glucose 123 H (74-99) mg/dL Calcium 9.2 (8.4-10.2) mg/dL AST 22 (17-59) U/L ALT 21 (4-49) U/L Alkaline Phosphatase 76 (38-126) U/L Total Protein 6.8 (6.3-8.2) g/dL Albumin 4.3 (3.5-5.0) g/dL Current Medications Generic Name Dose Route Start Last Admin Trade Name Freq PRN Reason Stop Dose Admin Amiodarone HCl 200 mg 02/02/22 21:00 02/02/22 19:59 Amiodarone 200 Mg Tab PO Not Given BID KELLE Amlodipine Besylate 5 mg 02/02/22 17:30 02/02/22 17:48 Amlodipine 5 Mg Tab PO 5 mg W/SUPPER KELLE Administration Aspirin 81 mg 02/02/22 17:30 02/02/22 17:48 Aspirin 81 Mg PO 81 mg W/SUPPER KELLE Administration Atorvastatin Calcium 20 mg 02/02/22 17:30 02/02/22 17:48 Atorvastatin 20 Mg Tab PO 20 mg W/SUPPER KELLE Administration Heparin Sodium (Porcine) 5,000 unit 02/02/22 21:00 02/02/22 19:56 Heparin Sodium,Porcine/Pf 5,000 Unit/0.5 Ml Syringe SQ 5,000 unit Q12HR KELLE Administration Losartan Potassium 25 mg 02/02/22 21:00 02/02/22 19:56 Losartan 25 Mg Tab PO 25 mg HS KELLE Administration Naloxone HCl 0.2 mg 02/02/22 12:49 Naloxone 0.4 Mg/Ml 1 Ml Vial IV Q2M PRN Opioid Reversal Intake and Output 02/02/22 02/03/22 02/03/22 22:59 06:59 14:59 Other: Voiding Method Urinal # Voids 1 1 02/02/22 11:21 02/02/22 11:21
[2022-02-03 13:48] VITALS: BP 135/64; PULSE 56; RESP 18; TEMP 97.6
--- NOTE | 2022-02-03 14:58 | P.DS ---
Providers Date of admission: 02/02/22 14:23 Expected date of discharge: 02/03/22 Attending physician: Oscar Segundo Consults: 02/02/22 12:49 Consult Physician Routine Consulting Provider: [facility] Consult Reason/Comments: bradycardia Do you want consulting provider notified?: Yes Primary care physician: Oscar Segundo Hospital Course: HISTORY OF PRESENT ILLNESS This is an 86-year-old male with past medical history of hypertension, coronary artery disease status post CABG, TIA, hyperlipidemia. Patient had a recent hospitalization for ventricular tachycardia, non-ST elevated myocardial infarction, paroxysmal atrial fibrillation new onset. Echocardiogram revealed EF of 50% with inferior basal hypokinesia and atypical septal motion. Aortic valve sclerosis without restriction. Mild mitral and tricuspid insufficiency. Cardiac catheterization was performed by Dr. BARRETT Guevara which revealed left dominant system, total occlusion of the distal circumflex, mid LAD. No significant disease in the nondominant RCA. Main graft to the diagonal high first obtuse marginal is patent free of significant disease. The vein graft to the second or third obtuse marginal is widely patent with descending flow with mild diffuse disease within the obtuse marginal. The vein graft to the PLV branch of circumflex is widely patent with mild diffuse disease within the branches. The BLEDSOE to LAD was subselectively injected appears to be patent with decent flow. Recommendations were to continue medical therapy with the addition of amiodarone and event monitor was advised. Patient was discharged home on event monitor. Patient had a follow-up appointment in the office on Sunday and was feeling fine at that time. No medication changes were made. His follow-up appointment with cardiology was scheduled for February 15. Patient states that he has been taking MiraLAX on a daily basis and was feeling uncomfortable. He was working on his puzzles and he went into the bathroom had a very large bowel movement and then came back and sat down. He was not feeling very well and developed numbness in his right arm and shoulder. His son was present and they decided he should take a nitroglycerin. Patient took a total of 3 nitroglycerin spaced apart but did not have any chest pain. He did not have chest pain before taking nitroglycerin. They decided then to call EMS and he was brought into the hospital. He states he felt a little lightheaded or dizzy. No nausea, no chest pain and no shortness of breath. He still has all we'll numbness in the right arm and shoulder but mostly improved. CBC was unremarkable. Electrolytes and renal function within normal limits. Blood sugar 123. Total bilirubin 1.4 and other liver function tests were normal. ProBNP 709. Troponin 0.014. EKG was a sinus bradycardia at 53 bpm. monitor technician is sinus bradycardia in the 50s. Patient is seen in the emergency center waiting for a bed on the cardiac stepdown unit. Metoprolol has been held. Chest x-ray shows mild cardiomegaly. Some hypoventilatory and chronic appearing changes. No definite acute process. 02/03: Patient has been seen by cardiology and resumed on Lopressor 12.5 mg twice daily, continued on amiodarone 200 mg twice daily. Patient has been cleared by cardiology for discharge home today and follow-up with Dr. BARRETT Guevara. Repeat CBC and BMP unremarkable. All 3 troponins came back negative. Patient will be discharged home today in stable condition. DISCHARGE DIAGNOSES 1. Vague symptoms of not feeling well, right arm and shoulder numbness without weakness, concern for bradycardia and hypotension. 2. Recent Non-ST elevated myocardial infarction status post cardiac catheterization positive for coronary artery disease with recommendations for medical management. 3. Ventricular tachycardia. 4. Hypertension. Continue patient on losartan 25 mg at bedtime. 5. History of coronary artery disease and CABG. continue as in #2. 6. History of TIA, stable. 7. Hyperlipidemia. 8. Possible rheumatoid arthritis under the care of Dr. Cox. 9. Episode of paroxysmal atrial fibrillation on previous admission, not on anticoagulation secondary to history of spontaneous intracranial hemorrhage. DISCHARGE PLAN Return home. Greater than 35 minutes was utilized and coordinating patient's discharge. Impression and plan of care have been directed as dictated by the signing physician. Margarita Enriquez nurse practitioner acting as scribe for signing physician. Patient Condition at Discharge: Stable Plan - Discharge Summary Discharge Rx Participant: No New Discharge Prescriptions: Continue Aspirin EC [Ecotrin Low Dose] 81 mg PO W/SUPPER amLODIPine [Norvasc] 5 mg PO W/SUPPER polyethylene glycoL 3350 [Miralax] 17 gm PO DAILY Calcium Carbonate [Calcium] 600 mg PO W/SUPPER Amiodarone [Cordarone] 200 mg PO BID #60 tab Losartan [Cozaar] 25 mg PO HS #30 tab Triamcinolone 0.1% Cream [Kenalog 0.1% Cream] 1 applicatio TOPICAL BID PRN PRN Reason: Rash Atorvastatin [Lipitor] 20 mg PO W/SUPPER Nitroglycerin Sl Tabs [Nitrostat] 0.4 mg SUBLINGUAL Q5M PRN #15 tab PRN Reason: Chest Pain Otc Sleep Aid 1 tab PO HS Changed Metoprolol Tartrate [Lopressor] 12.5 mg PO BID #60 tab Discharge Medication List Aspirin EC [Ecotrin Low Dose] 81 mg PO W/SUPPER 10/31/16 [History] amLODIPine [Norvasc] 5 mg PO W/SUPPER 08/04/18 [History] Atorvastatin [Lipitor] 20 mg PO W/SUPPER 01/24/22 [History] Calcium Carbonate [Calcium] 600 mg PO W/SUPPER 01/24/22 [History] Triamcinolone 0.1% Cream [Kenalog 0.1% Cream] 1 applicatio TOPICAL BID PRN 01/24/22 [History] polyethylene glycoL 3350 [Miralax] 17 gm PO DAILY 01/24/22 [History] Amiodarone [Cordarone] 200 mg PO BID #60 tab 01/27/22 [Rx] Losartan [Cozaar] 25 mg PO HS #30 tab 01/27/22 [Rx] Nitroglycerin Sl Tabs [Nitrostat] 0.4 mg SUBLINGUAL Q5M PRN #15 tab 01/27/22 [Rx] Otc Sleep Aid 1 tab PO HS 02/02/22 [History] Metoprolol Tartrate [Lopressor] 12.5 mg PO BID #60 tab 02/03/22 [Rx] Follow up Appointment(s)/Referral(s): Wes Guevara MD [STAFF PHYSICIAN] - 02/15/22 10:00 am Oscar Segundo MD [Primary Care Provider] - 1 Week (Office currently closed, please call office on Sunday for follow up appointment) Patient Instructions/Handouts: Bradycardia (DC) Discharge Disposition: HOME SELF-CARE
[2022-02-03] MEDS ORDERED: polyethylene glycoL 3350 17 GM POWD.PACK PO SCH (15:00)
--- NOTE | 2022-02-10 09:41 | CDI ---
Documentation Clarification Form Date: 02/08/2022 09:41:00 AM From: Tracy Black RN, CCDS Admit Date: 02/02/2022 02:23:00 PM Patient Name: Byron Velazquez Visit Number: [id number] Discharge Date: 02/03/2022 05:21:00 PM ATTENTION: The Clinical Documentation Specialists (CDI) and [facility] Coding Staff appreciate your assistance in clarifying documentation. Please respond to the clarification below the line at the bottom and electronically sign. The CDI & [facility] Coding staff will review the response and follow-up if needed. Please note: Queries are made part of the Legal Health Record. If you have any questions, please contact the author of this message via ITS. Dr. Oscar Segundo There is documentation of recent admit earlier this month 01/26/2022 paroxysmal atrial fibrillation, and concern for NSTEMI by cardiology and in the H/P, discharge summary recent NSTEMI notes by attending Additional clarification is requested for severity of illness regarding the date the NSTEMI. History/Risk Factors: Hypertension, Coronary artery disease, Hyperlipidemia, Clinical Indicators: 88-year-old male present to ED on 02/02/22 with complaints of chest pain. H/P documents recent admission for NSTEMI but did not provide date of the IA for the admission of 01/24-01/07/02. Labs: 01/24/22 Troponin: 0.149, 2.130, Treatment: Aspirin 81 mg daily, Atorvastatin 20 mg daily, Amiodarone 200 mg bid daily Follow up with Cardiology 02/15/22 Can you please clarify date of recent NSTEMI? [X ] Non-ST elevated myocardial infarction 01/24/22 [ ] Other, please specify [ ] Unable to determine (Template Last Revised: April 2020) MTDD
== END 2022-02-03 17:21 | disposition home or self-care (01) | DRG 282 ==
LOC: EC 11:08 → 6NMEDSUR 12:49 → 3SCARD 13:39 → OBSVTOIN 14:23 → 3SCARD 14:37
PROVIDERS: ADMIT Internal Medicine; ATTEND Internal Medicine
DX: I47.20 Ventricular tachycardia, unspecified (principal); I21.4 Non-ST elevation (NSTEMI) myocardial infarction; I48.0 Paroxysmal atrial fibrillation; I25.10 Atherosclerotic heart disease of native coronary artery without angina pectoris; R00.1 Bradycardia, unspecified; M06.9 Rheumatoid arthritis, unspecified; E78.5 Hyperlipidemia, unspecified; I08.3 Combined rheumatic disorders of mitral, aortic and tricuspid valves; I10 Essential (primary) hypertension; I25.2 Old myocardial infarction; Z79.82 Long term (current) use of aspirin; Z79.899 Other long term (current) drug therapy; Z95.1 Presence of aortocoronary bypass graft; Z82.49 Family history of ischemic heart disease and other diseases of the circulatory system; Z86.73 Personal history of transient ischemic attack (TIA), and cerebral infarction without residual deficits; Z88.2 Allergy status to sulfonamides
CPT/HCPCS: 36415; 71046; 80048; 80053; 83735; 83880; 84484; 85025; 85610; 85730; 93005; 96360; 96372; 99285

== ENCOUNTER → 2023-03-22 | Outpatient (CLI) | payer MEDICARE ==
[2023-03-22 15:18] LABS: BUN/Creat Ratio 18.47 Ratio (12.00-20.00); Blood Urea Nitrogen 27.7 mg/dL (9.0-27.0); Calcium 9.5 mg/dL (8.7-10.3); Carbon Dioxide 27.6 mmol/L (21.6-31.8); Chloride 103 mmol/L (96-109); Glucose 103 mg/dL (70-110); Potassium 4.4 mmol/L (3.5-5.5); Sodium 142 mmol/L (135-145)
== END | disposition home or self-care (01) ==
LOC: LABWHC1 11:59
PROVIDERS: ATTEND Surgery Vascular Surgery
DX: M62.241 Nontraumatic ischemic infarction of muscle, right hand (principal)
CPT/HCPCS: 36415; 80048

== ENCOUNTER 2023-07-17 22:19 | Observation (INO) | payer MEDICARE ==
[2023-07-17] MEDS: LOSARTAN 25 MG TAB PO STA (22:40)
[2023-07-17] MEDS: SODIUM CHLORIDE 0.9% 1,000 ML IV STA (22:40)
--- NOTE | 2023-07-17 22:52 | ED ---
General Adult HPI - General Chief complaint: Fall Stated complaint: Fall, Head Injury Time Seen by Provider: 07/17/23 22:25 Source: patient, RN notes reviewed, old records reviewed Mode of arrival: ambulatory Limitations: no limitations - History of Present Illness Initial comments: Patient is an 88-year-old male who presents emergency department after a mechanical fall at home. Patient was climbing stairs when he tripped over the steps while trying to use his cane and fell forward striking his head on the metal stairs. Also injured his right shoulder. Denies loss conscious. Is not on blood thinners. Denies any other acute complaints at this time. Presents for further evaluation at this time. Patient has an obvious forehead abrasion and contusion. States he is up-to-date on tetanus. Also is complaining of right shoulder pain. Denies any back pain, chest pain, abdominal pain. Denies any other acute complaints. 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 Nonacute injury. Patient also has a chronic right foot wound which is being treated by vascular surgery. Not an acute injury. - Related Data Home Medications Medication Instructions Recorded Confirmed Aspirin EC [Ecotrin Low Dose] 81 mg PO W/SUPPER 10/31/16 02/02/22 amLODIPine [Norvasc] 5 mg PO W/SUPPER 08/04/18 02/02/22 Atorvastatin [Lipitor] 20 mg PO W/SUPPER 01/24/22 02/02/22 Calcium Carbonate [Calcium] 600 mg PO W/SUPPER 01/24/22 02/02/22 Triamcinolone 0.1% Cream [Kenalog 1 applicatio TOPICAL BID PRN 01/24/22 02/02/22 0.1% Cream] polyethylene glycoL 3350 [Miralax] 17 gm PO DAILY 01/24/22 02/02/22 Otc Sleep Aid 1 tab PO HS 02/02/22 02/02/22 Previous Rx's Medication Instructions Recorded Amiodarone [Cordarone] 200 mg PO BID #60 tab 01/27/22 Losartan [Cozaar] 25 mg PO HS #30 tab 01/27/22 Nitroglycerin Sl Tabs [Nitrostat] 0.4 mg SUBLINGUAL Q5M PRN #15 tab 01/27/22 Metoprolol Tartrate [Lopressor] 12.5 mg PO BID #60 tab 02/03/22 Allergies Allergy/AdvReac Type Severity Reaction Status Date / Time Sulfa (Sulfonamide Allergy Rash/Hives Verified 02/02/22 12:03 Antibiotics) Review of Systems ROS Statement: Those systems with pertinent positive or pertinent negative responses have been documented in the HPI. Review of Systems: CONST: Denies fever EYES: Denies blurry vision ENT: Denies nasal congestion C/V: Denies Chest pain RESP: Denies shortness of breath GI: Denies abdominal pain : Denies dysuria SKIN: Endorses right-sided abrasions on the cheek and forehead. MSK: Endorses right shoulder pain. NEURO: Denies headache ROS Other: All systems not noted in ROS Statement are negative. Past Medical History Past Medical History: Coronary Artery Disease (CAD), CVA/TIA, Hyperlipidemia, Hypertension, Renal Disease Additional Past Medical History / Comment(s): IRREGULAR. NO RESIDUAL WITH CVA, ASA RESOLVED ALL SYMPTOMS., brain bleed History of Any Multi-Drug Resistant Organisms: None Reported Past Surgical History: Heart Catheterization Additional Past Surgical History / Comment(s): 10-27-14 cabg x4 vessel with left internal mammary artery, open saphenous vein harvest. 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 Past Anesthesia/Blood Transfusion Reactions: No Reported Reaction Additional Past Anesthesia/Blood Transfusion Reaction / Comment(s): HAS HAD BLOOD TRANSFUSIONS IN THE PAST WITHOUT REACTIONS. Past Psychological History: No Psychological Hx Reported Smoking Status: Never smoker Past Alcohol Use History: None Reported Past Drug Use History: None Reported - Past Family History Father Family Medical History: Cancer Mother Family Medical History: Coronary Artery Disease (CAD) Additional Family Medical History / Comment(s): CABG. General Exam - General Exam Comments Initial Comments: General: Appears in no acute distress. HEAD: Negative Daniels sign. Negative raccoon eyes. Patient does not have an abrasion and contusion over the right forehead as well as an abrasion over the right cheekbone. No obvious deformities. EYES: PERRLA, EOMI, conjunctiva normal, no discharge. Pulls are 3 mm and equal bilaterally. ENT: Hearing grossly intact, normal oropharynx. Cervical collar in place. RESPIRATORY: Clear breath sounds bilaterally. No wheezes, rales, or rhonchi. C/V: Regular rate and rhythm. S1 and S2 auscultated, peripheral pulses 2+ and intact throughout ABD: Abd is soft, nontender, nondistended EXT: Range of motion of the right shoulder secondary to pain. No obvious deformity. 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 No midline cervical, thoracic, lumbar spine tenderness to palpation. No step-offs or deformities of the spine. Pelvis is stable. SKIN: Abrasions over the right forehead with contusion as well as right cheek. Patient has chronic blister at the amputation stump of the left upper extremity. Patient also has a chronic wound over the medial right foot. Does not appear acutely infected at this time. NEURO: Alert and oriented x 4. Cranial nerves II-XII intact. No focal sensory or strength deficits. GCS of 15. Limitations: no limitations Course Vital Signs 07/17/23 07/18/23 07/18/23 22:23 00:05 01:30 Pulse Rate 76 73 80 Respiratory 20 20 20 Rate Blood Pressure 206/100 198/97 157/88 O2 Sat by Pulse 96 96 97 Oximetry 07/18/23 03:50 Pulse Rate 82 Respiratory 20 Rate Blood Pressure 159/88 O2 Sat by Pulse 97 Oximetry Medical Decision Making - Medical Decision Making Was pt. sent in by a medical professional or institution (, PA, ASSOCIATE MEDIA DIRECTOR, urgent care, hospital, or [place] health care facility...) When possible be specific @ -No Did you speak to anyone other than the patient for history (EMS, parent, family, police, friend...)? What history was obtained from this source @ -No Did you review nursing and triage notes (agree or disagree)? Why? @ -I reviewed and agree with nursing and triage notes Were old charts reviewed (outside hosp., previous admission, EMS record, old EKG, old radiological studies, urgent care reports/EKG's, [place] health care facility records)? Report findings @ -No old charts were reviewed Differential Diagnosis (chest pain, altered mental status, abdominal pain women, abdominal pain men, vaginal bleeding, weakness, fever, dyspnea, syncope, headache, dizziness, GI bleed, back pain, seizure, CVA, palpatations, mental health, musculoskeletal)? @ -Differential Musculoskeletal Muscular strain, contusion, ligament sprain, fracture, arthritis, septic arthritis, bursitis, cellulitis, muscle spasm, nerve compression, DVT, arterial occlusion, herpes zoster, electrolyte abnormality, tumor.... This is not meant to be in all inclusive list. Also includes intracranial injury or cervical sp ine injury. EKG interpreted by me (3pts min.). @ -As above X-rays interpreted by me (1pt min.). @ -Chest, right shoulder, pelvis x-ray is negative for any obvious traumatic injury. CT interpreted by me (1pt min.). @ -CT brain, C-spine, facial bones negative for any obvious bony traumatic injury or intracranial process. Large hematoma present over the right forehead.CT of the right shoulder reveals no obvious traumatic injury. U/S interpreted by me (1pt. min.). @ -None done What testing was considered but not performed or refused? (CT, X-rays, U/S, labs)? Why? @ -None What meds were considered but not given or refused? Why? @ -I offered analgesia medications which were declined. I did order a dose of his evening blood pressure medication which she did not take. Did you discuss the management of the patient with other professionals (professionals i.e. , PA, ASSOCIATE MEDIA DIRECTOR, lab, RT, psych nurse, social work administrator, road cutter, teacher, program officer, pillowcase cleaner)? Give summary @ -Discussed with Dr. Segundo who accepted the admission. Was smoking cessation discussed for >3mins.? @ -No Was critical care preformed (if so, how long)? @ -No Were there social determinants of health that impacted care today? How? (Homelessness, low income, unemployed, alcoholism, drug addiction, transportation, low edu. Level, literacy, decrease access to med. care, correction, rehab)? @ -No Was there de-escalation of care discussed even if they declined (Discuss DNR or withdrawal of care, Hospice)? DNR status @ -No What co-morbidities impacted this encounter? (DM, HTN, Smoking, COPD, CAD, Cancer, CVA, ARF, Chemo, Hep., AIDS, mental health diagnosis, sleep apnea, morbid obesity)? @ -None Was patient admitted / discharged? Hospital course, mention meds given and route, prescriptions, significant lab abnormalities, going to OR and other pertinent info. @ -Patient presents after a fall. Is not on blood thinners. Fell from standing height. Is not on platelet inhibitors. Does not meet criteria for trauma activation. We will obtain CT imaging of the face, brain, C-spine as well as x-rays of the shoulder, chest, pelvis. Trauma labs will be sent. Screen EKG will be obtained. I did offer analgesia medications which were declined. Primary complaint seems to be the right shoulder which has reduced range of motion secondary to pain. Patient is slightly hypertensive but otherwise vitals are within acceptable limits. He is up-to-date on tetanus. He was in agreement this plan. EKG shows no signs of acute ischemia.Imaging negative for any obvious traumatic injury. Laboratory studies also unremarkable. At this time, patient is still having weakness and pain in the right shoulder. Significantly below baseline. I did recommend that we obtain a CT of the right shoulder at this time. At the patient has only 1 functional upper extremity to handle his cane which she ambulates with at home for balance, I believe it is unsafe to discharge the patient home at this time as he is a fall risk. Recommended admission. He was in agreement this plan. We will obtain a CT of the right shoulder and then admit the patient. Sling ordered. Patient's forehead contusion cleaned by assisting midlevel provider and dressing placed. CT of the right shoulder unremarkable. I discussed results with the patient. He expressed understanding. He will be admitted at this time as he is a fall risk at home as he has only 1 hand and is on the shoulder that is currently weak and painful and he uses a cane at baseline. Unable to foreign law consultant the cane effectively. Patient will be admitted to observation with PT and OT evaluation. Orthopedics consulted for the patient's continued pain in the right shoulder. Patient placed in a sling. Undiagnosed new problem with uncertain prognosis? @ -No Drug Therapy requiring intensive monitoring for toxicity (Heparin, Nitro, Insulin, Cardizem)? @ -No Were any procedures done? @ -No Diagnosis/symptom? @ -Fall, right shoulder sprain, traumatic hematoma of the forehead, debility, abrasion Acute, or Chronic, or Acute on Chronic? @ -Acute Uncomplicated (without systemic symptoms) or Complicated (systemic symptoms)? @ -Complicated Side effects of treatment? @ -None Exacerbation, Progression, or Severe Exacerbation] @ -No Poses a threat to life or bodily function? @ -Possibly, yes - Lab Data Result diagrams: 07/17/23 23:23 07/17/23 23:23 Lab Results 07/17/23 07/17/23 07/17/23 Range/Units 23:23 23:23 23:23 WBC 6.6 (3.8-10.6) k/uL RBC 5.00 (4.30-5.90) m/uL Hgb 15.6 (13.0-17.5) gm/dL Hct 48.7 (39.0-53.0) % MCV 97.3 (80.0-100.0) fL MCH 31.2 (25.0-35.0) pg MCHC 32.1 (31.0-37.0) g/dL RDW 13.3 (11.5-15.5) % Plt Count 152 (150-450) k/uL MPV 9.5 Neutrophils % 78 % Lymphocytes % 9 % Monocytes % 9 % Eosinophils % 1 % Basophils % 1 % Neutrophils # 5.2 (1.3-7.7) k/uL Lymphocytes # 0.6 L (1.0-4.8) k/uL Monocytes # 0.6 (0-1.0) k/uL Eosinophils # 0.0 (0-0.7) k/uL Basophils # 0.0 (0-0.2) k/uL PT 10.4 (10.0-12.5) sec INR 0.9 (<1.2) APTT 23.8 (22.0-30.0) sec Sodium 139 (137-145) mmol/L Potassium 4.2 (3.5-5.1) mmol/L Chloride 106 (98-107) mmol/L Carbon Dioxide 27 (22-30) mmol/L Anion Gap 6 mmol/L BUN 20 (9-20) mg/dL Creatinine 1.14 (0.66-1.25) mg/dL Est GFR (CKD-EPI)AfAm 66 (>60 ml/min/1.73 sqM) Est GFR (CKD-EPI)NonAf 57 (>60 ml/min/1.73 sqM) Glucose 171 H (74-99) mg/dL Calcium 8.8 (8.4-10.2) mg/dL Total Bilirubin 1.0 (0.2-1.3) mg/dL AST 32 (17-59) U/L ALT 27 (4-49) U/L Alkaline Phosphatase 112 (38-126) U/L Total Protein 6.5 (6.3-8.2) g/dL Albumin 3.9 (3.5-5.0) g/dL Serum Alcohol <10 mg/dL Blood Type Blood Type Recheck Bld Type Recheck Status Antibody Screen Spec Expiration Date 07/18/23 Range/Units 01:35 WBC (3.8-10.6) k/uL RBC (4.30-5.90) m/uL Hgb (13.0-17.5) gm/dL Hct (39.0-53.0) % MCV (80.0-100.0) fL MCH (25.0-35.0) pg MCHC (31.0-37.0) g/dL RDW (11.5-15.5) % Plt Count (150-450) k/uL MPV Neutrophils % % Lymphocytes % % Monocytes % % Eosinophils % % Basophils % % Neutrophils # (1.3-7.7) k/uL Lymphocytes # (1.0-4.8) k/uL Monocytes # (0-1.0) k/uL Eosinophils # (0-0.7) k/uL Basophils # (0-0.2) k/uL PT (10.0-12.5) sec INR (<1.2) APTT (22.0-30.0) sec Sodium (137-145) mmol/L Potassium (3.5-5.1) mmol/L Chloride (98-107) mmol/L Carbon Dioxide (22-30) mmol/L Anion Gap mmol/L BUN (9-20) mg/dL Creatinine (0.66-1.25) mg/dL Est GFR (CKD-EPI)AfAm (>60 ml/min/1.73 sqM) Est GFR (CKD-EPI)NonAf (>60 ml/min/1.73 sqM) Glucose (74-99) mg/dL Calcium (8.4-10.2) mg/dL Total Bilirubin (0.2-1.3) mg/dL AST (17-59) U/L ALT (4-49) U/L Alkaline Phosphatase (38-126) U/L Total Protein (6.3-8.2) g/dL Albumin (3.5-5.0) g/dL Serum Alcohol mg/dL Blood Type O Positive Blood Type Recheck O Pos Bld Type Recheck Status No Antibody Screen NEGATIVE Spec Expiration Date 07/21/20232340 - EKG Data -: EKG Interpreted by Me EKG Comments: 12-lead Electrocardiogram Interpretation Note EKG was reviewed and interpreted by myself. 12-lead ECG performed at 2227 is interpreted by me as revealing normal sinus rhythm first-degree AV block at a ra te of 79 beats per minute. [place] is normal. MI interval is 214 ms, QRS duration is 113 ms, QTc is 444 ms.. There were no ST or T wave abnormalities to suggest myocardial ischemia or injury. R wave progression across the precordium was satisfactory. By my interpretation this EKG is non-diagnostic for acute ischemia. Disposition Clinical Impression: Fall, Shoulder sprain, Traumatic hematoma of forehead, Debility, Abrasion Disposition: ADMITTED IP TO THIS HOSP Condition: Stable Time of Disposition: 02:30
--- NOTE | 2023-07-17 23:22 | CT ---
EXAM: CT Head Without Intravenous Contrast CLINICAL HISTORY: ITS.REASON CT Reason: trauma TECHNIQUE: Axial computed tomography images of the head/brain without intravenous contrast. CTDI is 12.9 mGy and DLP is 376.5 mGy-cm. This CT exam was performed using one or more of the following dose reduction techniques: automated exposure control, adjustment of the mA and/or kV according to patient size, and/or use of iterative reconstruction technique. COMPARISON: No relevant prior studies available. FINDINGS: No acute intracranial hemorrhage. No midline shift or mass effect. The territorial pérez-white matter differentiation is maintained throughout. RIGHT frontotemporal scalp hematoma. Age-related cerebral volume loss. Periventricular and subcortical white matter hypoattenuation, consistent with chronic microangiopathy. The visualized orbits appear grossly unremarkable. The calvarium is intact. The visualized paranasal sinuses and mastoid air cells are grossly clear. IMPRESSION: No acute intracranial hemorrhage, midline shift, or mass effect. RIGHT frontotemporal scalp hematoma. EXAM: CT Cervical Spine Without Intravenous Contrast CLINICAL HISTORY: ITS.REASON CT Reason: trauma TECHNIQUE: Axial computed tomography images of the cervical spine without intravenous contrast. CTDI is 16 mGy and DLP is 481.4 mGy-cm. This CT exam was performed using one or more of the following dose reduction techniques: automated exposure control, adjustment of the mA and/or kV according to patient size, and/or use of iterative reconstruction technique. COMPARISON: No relevant prior studies available. FINDINGS: The vertebral body heights are maintained. The craniocervical junction is intact. The atlanto-dens interval is maintained. The dens is intact. There is no spondylolisthesis. Multilevel cervical spondylosis and degenerative disc disease. Straightening of the cervical lordosis. The unenhanced neck soft tissues are grossly unremarkable. The visualized lung apices are grossly clear. IMPRESSION: No acute fracture or subluxation of the cervical spine.
--- NOTE | 2023-07-17 23:25 | XR ---
EXAM: XR Chest, 1 View CLINICAL HISTORY: ITS.REASON XR Reason: trauma TECHNIQUE: Frontal view of the chest. COMPARISON: No relevant prior studies available. FINDINGS: Lungs: Unremarkable. No consolidation. Pleural space: Unremarkable. No pneumothorax. Heart: Cardiomegaly. Mediastinum: Unremarkable. Normal mediastinal contour. Bones/joints: Sternotomy wires. No acute fracture. Vasculature: Calcified aorta. IMPRESSION: No acute findings in the chest.
--- NOTE | 2023-07-17 23:26 | CT ---
EXAM: CT Maxillofacial Without Intravenous Contrast CLINICAL HISTORY: ITS.REASON CT Reason: trauma TECHNIQUE: Axial computed tomography images of the face without intravenous contrast. CTDI is 12.9 mGy and DLP is 376.65 mGy-cm. This CT exam was performed using one or more of the following dose reduction techniques: automated exposure control, adjustment of the mA and/or kV according to patient size, and/or use of iterative reconstruction technique. COMPARISON: No relevant prior studies available. FINDINGS: The mandible is intact. Intact maxillary alveolus. Moderate RIGHT temporal scalp hematoma. The orbital rims and floors are intact. The intraorbital contents are grossly unremarkable. Intact nasal bones, nasal septum, and maxillary spines. The zygomatic arches and pterygoid processes are intact. IMPRESSION: No facial bone fracture. Moderate RIGHT temporal scalp hematoma.
--- NOTE | 2023-07-17 23:35 | XR ---
EXAM: XR Right Shoulder Complete, 2 or More Views CLINICAL HISTORY: ITS.REASON XR Reason: fall, pain TECHNIQUE: Two or more views of the right shoulder. COMPARISON: No relevant prior studies available. FINDINGS: Bones/joints: No acute fracture. Normal alignment. Soft tissues: Unremarkable. IMPRESSION: No acute fracture. Normal alignment.
--- NOTE | 2023-07-17 23:45 | XR ---
EXAM: XR Pelvis, 1 or 2 Views CLINICAL HISTORY: ITS.REASON XR Reason: Trauma TECHNIQUE: Frontal view of the pelvis. COMPARISON: No relevant prior studies available. FINDINGS: Bones/joints: Osseous demineralization. Multilevel lumbar spondylosis. No acute fracture. No dislocation. Soft tissues: Unremarkable. IMPRESSION: No pelvic fracture.
[2023-07-17 23:57] LABS: Basophils % (A) 1 %; Eosinophils % (A) 1 %; HCT 48.7 % (39.0-53.0); HGB 15.6 gm/dL (13.0-17.5); Lymphocytes # (A) 0.6 k/uL (1.0-4.8); Lymphocytes % (A) 9 %; MCH 31.2 pg (25.0-35.0); MCHC 32.1 g/dL (31.0-37.0); MCV 97.3 fL (80.0-100.0); Mean Platelet Volume 9.5; Monocytes # (A) 0.6 k/uL (0-1.0); Monocytes % (A) 9 %; Neutrophils # (A) 5.2 k/uL (1.3-7.7); Neutrophils % (A) 78 %; Platelet Count 152 k/uL (150-450); RDW 13.3 % (11.5-15.5); WBC 6.6 k/uL (3.8-10.6)
[2023-07-18 00:04] LABS: INR 0.9 (<1.2); Partial Thromboplastin Time 23.8 sec (22.0-30.0); Prothrombin Time 10.4 sec (10.0-12.5)
[2023-07-18] MEDS: hydrALAZINE HCL 20 MG/ML 1 ML VIAL IVP STA (00:05)
[2023-07-18 00:23] LABS: ALT 27 U/L (4-49); AST 32 U/L (17-59); African American GFR (CKD) 66 (>60 ml/min/1.73 sqM); Albumin 3.9 g/dL (3.5-5.0); Alcohol <10 mg/dL; Alkaline Phosphatase 112 U/L (38-126); Anion Gap 6 mmol/L; Blood Urea Nitrogen 20 mg/dL (9-20); Calcium 8.8 mg/dL (8.4-10.2); Carbon Dioxide 27 mmol/L (22-30); Chloride 106 mmol/L (98-107); Glucose 171 mg/dL (74-99); Non-African American GFR(CKD) 57 (>60 ml/min/1.73 sqM); Potassium 4.2 mmol/L (3.5-5.1); Sodium 139 mmol/L (137-145); Total Protein 6.5 g/dL (6.3-8.2)
[2023-07-18] MEDS: BACITRACIN OINT 1 EACH PACKET TOPICAL ONE (02:16)
--- NOTE | 2023-07-18 02:37 | CT ---
EXAM: CT Right Upper Extremity Without Intravenous Contrast, Shoulder CLINICAL HISTORY: pain, fall TECHNIQUE: Axial computed tomography images of the right shoulder without intravenous contrast. CTDI is 14.6 mGy and DLP is 430.3 mGy-cm. This CT exam was performed using one or more of the following dose reduction techniques: automated exposure control, adjustment of the mA and/or kV according to patient size, and/or use of iterative reconstruction technique. COMPARISON: No relevant prior studies available. FINDINGS: Bones/joints: Chronic degenerative changes noted involving the glenohumeral joint. The included clavicle, scapula and proximal humerus are intact. No acute osseous traumatic injury or abnormal alignment. The visualized right ribs are unremarkable. Soft tissues: No significant acute traumatic soft tissue abnormality identified. No radiopaque foreign body. Minimal gas in the regional venous structures of the thoracic inlet. No subcutaneous emphysema. Lung apices: Included portion of the right lung demonstrates no evidence for traumatic injury. IMPRESSION: No acute osseous traumatic injury or abnormal alignment involving the right shoulder.
[2023-07-18] MEDS ORDERED: ACETAMINOPHEN TAB 325 MG TAB PO PRN (02:40)
[2023-07-18] MEDS ORDERED: NALOXONE 0.4 MG/ML 1 ML VIAL IV PRN (02:40)
[2023-07-18] MEDS ORDERED: IBUPROFEN 400 MG TAB PO PRN (02:40)
[2023-07-18] MEDS ORDERED: ONDANSETRON 4 MG/2 ML VIAL IVP PRN (02:40)
[2023-07-18 05:34] LABS: Appearance,Urine Clear (Clear); Bilirubin,Urine Negative (Negative); Blood,Urine Negative (Negative); Color,Urine Colorless; Glucose,Urine (UA) 2+ (Negative); Ketones,Urine Negative (Negative); Leukocyte Esterase,Urine Negative (Negative); Nitrite,Urine Negative (Negative); Protein,Urine 1+ (Negative); RBC,Urine 2 /hpf (0-5); Specific Gravity,Urine 1.011 (1.001-1.035); Squamous Epithelial Cell,Urine <1 /hpf (0-4); Urobilinogen,Urine <2.0 mg/dL (<2.0); WBC,Urine 1 /hpf (0-5)
[2023-07-18 05:53] LABS: Amphetamine Screen,Urine Not Detected (NotDetected); Barbiturate Screen,Urine Not Detected (NotDetected); Benzodiazepines Screen,Urine Not Detected (NotDetected); Cocaine Screen,Urine Not Detected (NotDetected); Methadone Screen, Urine Not Detected (NotDetected); Opiate Screen,Urine Detected (NotDetected); Oxycodone Screen, Urine Not Detected (NotDetected); Phencyclidine Screen,Urine Not Detected (NotDetected); Tricyclic Antidepressant,Urine Not Detected (NotDetected); Urn Cannabinoid Scrn Not Detected (NotDetected)
--- NOTE | 2023-07-18 09:09 | P.CNOR ---
History of Present Illness - [facility] Consult date: 07/18/23 Consult reason: joint pain (Right shoulder pain) History of present illness: Patient is an 88-year-old male who was brought to [facility] on 07/17/2023 after having a fall at home. Patient underwent multiple imaging and lab tests, he was admitted to the hospital under internal medicine for further workup. Our orthopedic team was consulted due to right shoulder pain. Patient was evaluated today at bedside, he is resting in his hospital bed. Patient appears comfortable on exam. He notes most shoulder discomfort near the proximal end of the humerus. Patient has had a very difficult time with range of motion since being admitted to the hospital. Patient underwent a initial x- ray and also a CT scan of the right shoulder which showed no acute fractures or dislocations. Patient does live at home with one of his sons. He normally utilizes a cane for ambulation. He states that he was coming into the house with the assistance of the cane when he lost his balance and fell, he did hit his face/head during the fall. Patient denies any loss of consciousness. A head/neck CT scan was done which showed no acute fractures or bleeds. Patient states that prior to the fall he had very minimal discomfort with the right upper extremity. He denies any previous surgery to the right upper extremity. 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 Patient has dealt with a wound on that stump over the last few years from his prostatic. He also deals with a chronic lower extremity wound, he does follow-up with the vascular surgery/wound care center at [facility]. Currently patient denies any numbness or tingling to the right upper extremity. He denies any elbow, forearm, hand or wrist pain. He denies any acute onset of cervical, thoracic or lumbar pain. He denies any discomfort to the bilateral lower extremities or left upper extremity. Review of Systems Constitutional: Reports as per HPI Past Medical History Past Medical History: Coronary Artery Disease (CAD), CVA/TIA, Hyperlipidemia, Hypertension, Renal Disease Additional Past Medical History / Comment(s): IRREGULAR. NO RESIDUAL WITH CVA, ASA RESOLVED ALL SYMPTOMS., brain bleed History of Any Multi-Drug Resistant Organisms: None Reported Past Surgical History: Heart Catheterization Additional Past Surgical History / Comment(s): 10-27-14 cabg x4 vessel with left internal mammary artery, open saphenous vein harvest. 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 Past Anesthesia/Blood Transfusion Reactions: No Reported Reaction Additional Past Anesthesia/Blood Transfusion Reaction / Comm: HAS HAD BLOOD TRANSFUSIONS IN THE PAST WITHOUT REACTIONS. Past Psychological History: No Psychological Hx Reported Smoking Status: Never smoker Past Alcohol Use History: None Reported Past Drug Use History: None Reported - Past Family History Father Family Medical History: Cancer Mother Family Medical History: Coronary Artery Disease (CAD) Additional Family Medical History / Comment(s): CABG. Medications and Allergies Home Medications Medication Instructions Recorded Confirmed Type Aspirin EC [Ecotrin Low Dose] 81 mg PO W/SUPPER 10/31/16 02/02/22 History amLODIPine [Norvasc] 5 mg PO W/SUPPER 08/04/18 02/02/22 History Atorvastatin [Lipitor] 20 mg PO W/SUPPER 01/24/22 02/02/22 History Calcium Carbonate [Calcium] 600 mg PO W/SUPPER 01/24/22 02/02/22 History Triamcinolone 0.1% Cream [Kenalog 1 applicatio TOPICAL BID PRN 01/24/22 02/02/22 History 0.1% Cream] polyethylene glycoL 3350 [Miralax] 17 gm PO DAILY 01/24/22 02/02/22 History Amiodarone [Cordarone] 200 mg PO BID #60 tab 01/27/22 02/02/22 Rx Losartan [Cozaar] 25 mg PO HS #30 tab 01/27/22 02/02/22 Rx Nitroglycerin Sl Tabs [Nitrostat] 0.4 mg SUBLINGUAL Q5M PRN #15 tab 01/27/22 02/02/22 Rx Otc Sleep Aid 1 tab PO HS 02/02/22 02/02/22 History Metoprolol Tartrate [Lopressor] 12.5 mg PO BID #60 tab 02/03/22 02/02/22 Rx Allergies Allergy/AdvReac Type Severity Reaction Status Date / Time Sulfa (Sulfonamide Allergy Rash/Hives Verified 02/02/22 12:03 Antibiotics) Physical Examination Right upper extremity: There is no obvious open lesions, sores, areas of erythema or soft tissue swelling present to the right shoulder region. He does have Band-Aids over the right hand on the dorsum from abrasions from fall. He does have multiple arthritic nodules present throughout the right digits. Patient demonstrates some tenderness with palpation to the proximal humerus. He is nontender with palpation throughout the acromioclavicular joint. He is no ntender with palpation surrounding the elbow, forearm, hand and wrist Active range of motion is very limited with the shoulder at this time due to pain, passive range of motion with regards to forward elevation ,abduction, internal and external rotation of the shoulder reproduces no pain. Patient can extend and flex the elbow, he can pronate and supinate the arm with minimal difficulty. He is wiggling all the fingers at this time with no difficulty, he is able to make a fist with no difficulty Sensory exam to light touch is intact throughout the extremity Radial/ulnar pulse are 2+ Results - Labs Labs: Abnormal Lab Results - Last 24 Hours (Table) 07/17/23 07/17/23 07/17/23 Range/Units 22:33 23:23 23:23 Lymphocytes # 0.6 L (1.0-4.8) k/uL Glucose 171 H (74-99) mg/dL Urine Protein 1+ H (Negative) Urine Glucose (UA) 2+ H (Negative) Urine Opiates Screen Detected H (NotDetected) H & H 07/17/23 Range/Units 23:23 Hgb 15.6 (13.0-17.5) gm/dL Hct 48.7 (39.0-53.0) % Coagulation 07/17/23 Range/Units 23:23 INR 0.9 (<1.2) Result Diagrams: 07/17/23 23:23 07/17/23 23:23 - Diagnostic results Shoulder x-ray: report reviewed, image reviewed Shoulder CT: report reviewed, image reviewed Assessment and Plan Assessment: Right shoulder pain Right shoulder osteoarthritis Right shoulder possible acute/traumatic rotator cuff tear Status post fall from standing Multiple medical comorbidities Plan: Imaging: Report and images reviewed of the right shoulder x-rays along with right shoulder CT scan. No acute fractures or dislocations are present. X-rays did demonstrate osseous changes throughout the greater tuberosity, this may represent chronic rotator cuff pathology. X-ray and CT scan also demonstrated glenohumeral joint osteoarthritic changes, this to include joint space loss and subchondral sclerosis Plan: I was able to discuss the case, this to include physical exam findings and imaging studies my attending Dr. Metzger. No emergent orthopedic surgical inter vention is recommended at this time Conservative measures recommended, this to include icing of the shoulder, also use of [id number] Tylenol/NSAIDs the patient is able to tolerate We discussed the possibility of rotator cuff pathology, we would recommend follow-up in the outpatient setting for further workup if patient's symptoms do not improve, this to include possible MRI. Patient's age and medical comorbidities, this to include his chronic wounds makes him a poor candidate for surgical intervention. Also have take into consideration the patient's limited use with the left upper extremity. Recommend avoiding heavy lifting with right upper extremity, basic range of motion exercises of the elbow, hand, wrist and shoulder are okay PT/OT evaluation recommended for gait training DVT prophylaxis per primary medical service Other medical specialty recommendations appreciated Discharge planning: On orthopedic standpoint patient remained stable, we can monitor as needed. Recommending follow-up in the outpatient setting in the next week or two with Dr. Andrade/Dr. Davenport for further evaluation and recheck Time with Patient: Less than 30
[2023-07-18] MEDS ORDERED: NITROGLYCERIN SL TABS 0.4 MG TAB SUBLINGUAL PRN (10:29)
[2023-07-18] MEDS: LOSARTAN 50 MG TAB PO SCH (10:45)
[2023-07-18] MEDS: METOPROLOL TARTRATE 12.5 MG TAB PO SCH (10:46)
[2023-07-18] MEDS: HEPARIN SODIUM,PORCINE 5,000 UNIT/ML 1 ML VIAL SQ SCH (10:51)
--- NOTE | 2023-07-18 15:16 | P.HPIM ---
History of Present Illness H&P Date: 07/18/23 Chief Complaint: Fall with severe right shoulder pain. HISTORY OF PRESENT ILLNESS This is an 88-year-old male with past medical history of hypertension, coronary artery disease status post CABG, TIA, hyperlipidemia. Patient had a recent hospitalization for ventricular tachycardia, non-ST elevated myocardial infarction. Echocardiogram revealed EF of 50% with inferior basal hypokinesia and atypical septal motion. Aortic valve sclerosis without restriction. Mild mitral and tricuspid insufficiency. Cardiac catheterization was performed by Dr. BARRETT Guevara which revealed left dominant system, total occlusion of the distal circumflex, mid LAD. No significant disease in the nondominant RCA. Main graft to the diagonal high first obtuse marginal is patent free of significant disease. The vein graft to the second or third obtuse marginal is widely patent with descending flow with mild diffuse disease within the obtuse marginal. The vein graft to the PLV branch of circumflex is widely patent with mild diffuse disease within the branches. The BLEDSOE to LAD was subselectively injected appears to be patent with decent flow. Recommendations were to continue medical therapy with the addition of amiodarone , patient has been following with vascular surgery regarding his chronic wound to his right lower extremity due to severe vascular disease as well, patient presented to the emergency department at [facility] yesterday after he lost his balance going into the house while using his cane and then landed on the right side of the shoulder hit his face and head, he had a battery of testing including CT scan of the brain as well as cervical spine did not show evidence of acute fracture, or any acute bleed, he had a x-ray of the shoulder followed by a CT scan of the shoulder that did not show evidence of acute dislocation or fracture, patient was seen in consultation by orthopedic surgery who suspected that the patient has traumatic rotator cuff tear and at this point there was no planned surgical intervention, patient was placed on some pain management, he will be seen in consultation by physical therapy to see if the patient can maneuver okay at home, because 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 REVIEW OF SYSTEMS Constitutional: No fever, no chills, no night sweats. No weight change. Denies weakness, fatigue or lethargy. No daytime sleepiness. EENT: No headache. No blurred vision or double vision, no loss of vision. No loss of Hearing, no ringing in the ears, no dizziness. No nasal drainage or congestion. No epistaxis. No sore throat. Lungs: No shortness of breath, cough, no sputum production. No wheezing. Cardiovascular: No chest pain, no lower extremity edema. No palpitations. No paroxysmal nocturnal dyspnea. No orthopnea. Reports a little lightheadedness or dizziness. No syncopal episodes. Abdominal: No abdominal pain. No nausea, vomiting. No diarrhea. No constipation. No bloody or tarry stools. No loss of appetite. Genitourinary: No dysuria, increased frequency, urgency. No urinary retention. Musculoskeletal: No myalgias. positive for muscle weakness, positive for gait dysfunction, positive for frequent falls. positive for back pain. positive for neck pain. Integumentary: chronic wound to right foot 2.5x2.3x0.3 cm ( seen vascular surgery for it), no lesions. No rash or pruritus. positive for bruising. No change in hair or nails. Neurologic: No aphasia. No facial droop. No change in mentation. positive for trauma to his head. No headache. No paralysis. No paresthesia. Psychiatric: positive for depression. No anxiety. No mood swings. Endocrine: No abnormal blood sugars. No weight change. No excessive sweating or thirst. No cold intolerance. MEDICAL HISTORY Hypertension Coronary artery disease status post CABG TIA Hyperlipidemia Possible rheumatoid arthritis under the care of Dr. Cox History of ventricular tachycardia Non-ST elevated myocardial infarction PAD SURGICAL HISTORY Cardiac catheterization x2 CABG [place] [address] 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 He is currently drinking 1-2 bourbons per week and his last intake was on Sunday. FAMILY HISTORY Mother at age 83 with history of coronary artery disease status post CABG. Father at age 86 with lung cancer history of smoking. Patient has 2 brothers with no major medical problems. Patient has 10 children with no major medical problems. PHYSICAL EXAMINATION Gen: This is an 88-year-old male, lying down in bed in minimal distress HEENT: Head is atraumatic, normocephalic. Pupils equal, round. Sclerae is anicteric. NECK: Supple. No JVD. No lymphadenopathy. No thyromegaly. LUNGS: Decreased breath sound at bases, few rhonchi, no expiratory wheezes, no chest wall tenderness, no intercostal retractions. HEART: First heart sounds depressed, second heart sounds normal, there is systolic ejection murmur 2/6 located in the left sternal border. ABDOMEN: Soft. Bowel sounds are present. No masses. No tenderness. EXTREMITIES: There is trace edema, no calf tenderness, dorsalis pedis +1 bilaterally, decreased range of motion to right upper extremity. There is a stump to the left upper extremity.right foot with 2.5x2.3x0,3cm wound NEUROLOGICAL: Patient is awake, alert and oriented x3. Cranial nerves 2 through 12 are grossly intact., Cranial nerves 2-12 appear grossly intact, muscle power were 4 out of 5 in right upper extremity and 4 out of 5 in bilateral lower extremities. ASSESSMENT AND PLAN 1. Acute right shoulder pain due to an acute trauma due to falls and possible rotator cuff tear that is traumatic. Along with significant osteoarthritis of the right shoulder, no evidence of any dislocation or fracture patient was seen and evaluated by orthopedic surgery was recommended to continue with conservative management, we will ask for physical therapy evaluation for the patient as the patient depends on his right upper extremity because of his left upper extremity stump, to see if the patient is safe to be home alone. 2. Coronary artery disease. continue patient on aspirin 81 mg daily, atorvastatin 20 mg daily, continue metoprolol 25 mg orally twice every day, monitor the patient very closely, patient has been under the care of cardiology 3. History of ventricular tachycardia. Continue patient on amiodarone 200 mg orally once every day.. 4. Hypertension and hypertensive cardiovascular disease. Continue patient on losartan 100 mg orally once every day, metoprolol 12.5 mg orally once every day, monitor the patient blood pressure very closely. 5. Balance disorder with recurrent falls. Physical therapy and Occupational Therapy evaluation to see if the patient could benefit from subacute versus in- home physical therapy. 6. History of TIA, stable. Continue patient on aspirin 81 mg once every day, monitor the patient very closely continue patient also on atorvastatin 7. Hyperlipidemia. Continue atorvastatin 20 mg orally once every day, monitor the patient repeat panel, keep LDL 55-70. 8. Possible rheumatoid arthritis under the care of Dr. Cox. 9. DVT prophylaxis. Bilateral knee-high SAUL hose, start the patient on Heparin 5000 units SC q12 h 10. GI prophylaxis. Continue patient on Protonix 40 mg orally once every day. 11. History of glaucoma. Continue patient on latanoprost 1 drop in affected eye at bedtime. 12. Peripheral arterial occlusive disease. Patient has been in the care of Dr. Sheriff, he does have a chronic wound to the right foot , will continue with current wound care orders, follow-up with vascular surgery as an outpatient. 13. Edema. we will start Lasix 20 mg po daily along with potassium 10 meq po daily and keep legs elevated 14. Observation 15. Patient is full code. Past Medical History Past Medical History: Coronary Artery Disease (CAD), CVA/TIA, Hyperlipidemia, Hypertension, Renal Disease Additional Past Medical History / Comment(s): IRREGULAR. NO RESIDUAL WITH CVA, ASA RESOLVED ALL SYMPTOMS., brain bleed History of Any Multi-Drug Resistant Organisms: None Reported Past Surgical History: Heart Catheterization Additional Past Surgical History / Comment(s): 10-27-14 cabg x4 vessel with left internal mammary artery, open saphenous vein harvest. 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 Past Anesthesia/Blood Transfusion Reactions: No Reported Reaction Additional Past Anesthesia/Blood Transfusion Reaction / Comment(s): HAS HAD BLOOD TRANSFUSIONS IN THE PAST WITHOUT REACTIONS. Past Psychological History: No Psychological Hx Reported Smoking Status: Never smoker Past Alcohol Use History: None Reported Past Drug Use History: None Reported - Past Family History Father Family Medical History: Cancer Mother Family Medical History: Coronary Artery Disease (CAD) Additional Family Medical History / Comment(s): CABG. Medications and Allergies Home Medications Medication Instructions Recorded Confirmed Type Aspirin EC [Ecotrin Low Dose] 81 mg PO W/SUPPER 10/31/16 07/18/23 History Atorvastatin [Lipitor] 20 mg PO W/SUPPER 01/24/22 07/18/23 History polyethylene glycoL 3350 [Miralax] 17 gm PO DAILY 01/24/22 07/18/23 History Nitroglycerin Sl Tabs [Nitrostat] 0.4 mg SUBLINGUAL Q5M PRN #15 tab 01/27/22 07/18/23 Rx Amiodarone [Cordarone] 200 mg PO DAILY 07/18/23 07/18/23 History Latanoprost [Latanoprost 0.005%] 1 drop BOTH EYES HS 07/18/23 07/18/23 History Losartan Potassium [Cozaar] 100 mg PO DAILY 07/18/23 07/18/23 History Metoprolol Tartrate [Lopressor] 12.5 mg PO DAILY 07/18/23 07/18/23 History Allergies Allergy/AdvReac Type Severity Reaction Status Date / Time Sulfa (Sulfonamide Allergy Rash/Hives Verified 07/18/23 09:38 Antibiotics) Physical Exam Vitals: Vital Signs Temp Pulse Pulse Resp BP BP Pulse Ox 07/18/23 10:16 187/82 07/18/23 07:56 98.7 F 72 19 189/88 97 07/18/23 04:08 97.9 F 74 14 177/78 93 L 07/18/23 03:50 82 20 159/88 97 07/18/23 01:30 80 20 157/88 97 07/18/23 00:05 73 20 198/97 96 07/17/23 22:23 76 20 206/100 96 Intake and Output 07/17/23 07/18/23 07/18/23 22:59 06:59 14:59 Intake Total 59 Output Total 400 250 Balance -400 -191 Intake: Oral 59 Output: Urine 400 250 Other: # Voids 1 1 Weight 72.575 kg 72.575 kg Results CBC & Chem 7: 07/17/23 23:23 07/17/23 23:23 Labs: Abnormal Lab Results - Last 24 Hours (Table) 07/17/23 07/17/23 07/17/23 Range/Units 22:33 23:23 23:23 Lymphocytes # 0.6 L (1.0-4.8) k/uL Glucose 171 H (74-99) mg/dL Urine Protein 1+ H (Negative) Urine Glucose (UA) 2+ H (Negative) Urine Opiates Screen Detected H (NotDetected) Thrombosis Risk Factor Assmnt - Choose All That Apply Any of the Below Risk Factors Present?: Yes Each Factor Represents 1 point: Medical pt on bed rest Other Risk Factors: Yes Each Risk Factor Represents 3 Points: Age 75 years or older Other congenital or acquired thrombophilia - If yes, enter type in comment: No Thrombosis Risk Factor Assessment Total Risk Factor Score: 4 Thrombosis Risk Factor Assessment Level: Moderate Risk
[2023-07-18] MEDS: FUROSEMIDE 20 MG TAB PO SCH (15:42)
[2023-07-18] MEDS: AMIODARONE 200 MG TAB PO SCH (15:42)
[2023-07-18] MEDS: POTASSIUM CHLORIDE ER 10 MEQ TAB.ER.PRT PO SCH (15:42)
[2023-07-18] MEDS: ASPIRIN 81 MG PO SCH (19:11)
[2023-07-18] MEDS: ATORVASTATIN 20 MG TAB PO SCH (19:11)
[2023-07-18] MEDS: LATANOPROST 0.005% OPHTH DROPS 2.5 ML BTL BOTH EYES SCH (21:24)
[2023-07-19] MEDS: polyethylene glycoL 3350 17 GM POWD.PACK PO SCH (08:54)
[2023-07-19 10:50] LABS: ALT 25 U/L (10-49); AST 25 U/L (14-35); Albumin 4.2 g/dL (3.8-4.9); Albumin/Globulin Ratio 1.75 Ratio (1.60-3.17); Alkaline Phosphatase 136 U/L (41-126); BUN/Creat Ratio 12.58 Ratio (12.00-20.00); Blood Urea Nitrogen 15.1 mg/dL (9.0-27.0); Calcium 9.1 mg/dL (8.7-10.3); Carbon Dioxide 23.9 mmol/L (21.6-31.8); Chloride 104 mmol/L (96-109); Globulin 2.4 g/dL (1.6-3.3); Glucose 141 mg/dL (70-110); Potassium 3.8 mmol/L (3.5-5.5); Sodium 141 mmol/L (135-145); Total Bilirubin 1.2 mg/dL (0.3-1.2); Total Protein 6.6 g/dL (6.2-8.2)
[2023-07-19 11:02] LABS: Basophils # (A) 0.05 X 10*3/uL (0.00-0.10); Basophils % (A) 0.6 %; Eosinophils # (A) 0.07 X 10*3/uL (0.04-0.35); Eosinophils % (A) 0.8 %; HCT 48.4 % (39.6-50.0); HGB 15.9 g/dL (13.0-17.0); Lymphocytes # (A) 1.16 X 10*3/uL (0.90-5.00); Lymphocytes % (A) 13.9 %; MCH 31.4 pg (27.0-32.0); MCHC 32.9 g/dL (32.0-37.0); MCV 95.7 FL (80.0-97.0); Mean Platelet Volume 11.6 FL (9.5-12.2); Monocytes # (A) 0.93 X 10*3/uL (0.20-1.00); Monocytes % (A) 11.2 %; NRBC Per 100 WBC 0 X 10*3/uL (0.00-0.01); Neutrophils # (A) 6.01 X 10*3/uL (1.80-7.70); Neutrophils % (A) 72.3 %; Platelet Count 168 X 10*3/uL (140-440); RBC 5.06 X 10*6/uL (4.40-5.60); RDW 13.3 % (11.5-14.5); WBC 8.32 X 10*3/uL (4.50-10.00)
[2023-07-19 15:05] VITALS: BP 149/72; PULSE 50; RESP 16; TEMP 98.2
== END 2023-07-19 15:57 | disposition home health service (06) ==
LOC: EC 22:19 → 4SSUR 07-18 02:40 → 6NMEDSUR 07-18 07:46
PROVIDERS: ADMIT Internal Medicine; ATTEND Internal Medicine
DX: S00.81XA Abrasion of other part of head, initial encounter (principal); S43.401A Unspecified sprain of right shoulder joint, initial encounter; W10.9XXA Fall (on) (from) unspecified stairs and steps, initial encounter; M19.011 Primary osteoarthritis, right shoulder; I25.10 Atherosclerotic heart disease of native coronary artery without angina pectoris; E78.5 Hyperlipidemia, unspecified; I11.9 Hypertensive heart disease without heart failure; I73.9 Peripheral vascular disease, unspecified; R29.6 Repeated falls; R60.9 Edema, unspecified; I25.2 Old myocardial infarction; Z86.73 Personal history of transient ischemic attack (TIA), and cerebral infarction without residual deficits; Z95.1 Presence of aortocoronary bypass graft; Z79.82 Long term (current) use of aspirin; Z79.899 Other long term (current) drug therapy; Z88.2 Allergy status to sulfonamides
CPT/HCPCS: 96361 ×3; 96372 ×2; 96374; 99285; 36415; 93005; 97162; 97530; 97535 ×2; 97167; 86900; 86901; 80053 ×2; 85025 ×2; 85610; 85730; 86850; 81001; 80306; 72170; 73030; 71045; 72125; 70486; 70450; 73200; G0378 ×2; G0480; J0360; J1644 ×2; 80320

== ENCOUNTER 2023-09-08 16:36 | Emergency (ER) | payer MEDICARE ==
[2023-09-08 16:44] VITALS: RESP 18
--- NOTE | 2023-09-08 16:48 | ED ---
Fall HPI - General Chief Complaint: Fall Stated Complaint: Fall Time Seen by Provider: 09/08/23 16:40 Source: patient, EMS Mode of arrival: EMS - History of Present Illness Initial Comments: Patient is a an 88-year-old gentleman past medical history of prior CVA not on blood thinners presenting today for a mechanical trip and fall. Patient was playing bridge when he tripped and fell onto his right side. Hit the back of his head on the ground. No LOC. Patient at baseline now. Endorses mild headache, no nausea no vomiting, no changes in vision no numbness or weakness. Denies neck pain pain elsewhere. Is not on blood thinners. Hx limited as patient is hard of hearing. Currently AO x4. - Related Data Home Medications Medication Instructions Recorded Confirmed Aspirin EC [Ecotrin Low Dose] 81 mg PO W/SUPPER 10/31/16 07/18/23 Atorvastatin [Lipitor] 20 mg PO W/SUPPER 01/24/22 07/18/23 polyethylene glycoL 3350 [Miralax] 17 gm PO DAILY 01/24/22 07/18/23 Amiodarone [Cordarone] 200 mg PO DAILY 07/18/23 07/18/23 Latanoprost [Latanoprost 0.005%] 1 drop BOTH EYES HS 07/18/23 07/18/23 Losartan Potassium [Cozaar] 100 mg PO DAILY 07/18/23 07/18/23 Metoprolol Tartrate [Lopressor] 12.5 mg PO DAILY 07/18/23 07/18/23 Previous Rx's Medication Instructions Recorded Nitroglycerin Sl Tabs [Nitrostat] 0.4 mg SUBLINGUAL Q5M PRN #15 tab 01/27/22 Acetaminophen Tab [Tylenol] 650 mg PO Q6HR PRN tab 07/19/23 Furosemide [Lasix] 20 mg PO DAILY #30 tab 07/19/23 Potassium Chloride ER [K-Dur 10] 10 meq PO DAILY #30 tab 07/19/23 Allergies Allergy/AdvReac Type Severity Reaction Status Date / Time Sulfa (Sulfonamide Allergy Rash/Hives Verified 09/08/23 16:44 Antibiotics) Review of Systems ROS Statement: Those systems with pertinent positive or pertinent negative responses have been documented in the HPI. ROS Other: All systems not noted in ROS Statement are negative. Past Medical History Past Medical History: Coronary Artery Disease (CAD), CVA/TIA, Hyperlipidemia, Hypertension, Renal Disease Additional Past Medical History / Comment(s): IRREGULAR. NO RESIDUAL WITH CVA, ASA RESOLVED ALL SYMPTOMS., brain bleed History of Any Multi-Drug Resistant Organisms: None Reported Past Surgical History: Heart Catheterization Additional Past Surgical History / Comment(s): 10-27-14 cabg x4 vessel with left internal mammary artery, open saphenous vein harvest. 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 Past Anesthesia/Blood Transfusion Reactions: No Reported Reaction Additional Past Anesthesia/Blood Transfusion Reaction / Comment(s): HAS HAD BLOOD TRANSFUSIONS IN THE PAST WITHOUT REACTIONS. Past Psychological History: No Psychological Hx Reported Smoking Status: Never smoker Past Alcohol Use History: None Reported Past Drug Use History: None Reported - Past Family History Father Family Medical History: Cancer Mother Family Medical History: Coronary Artery Disease (CAD) Additional Family Medical History / Comment(s): CABG. General Exam - General Exam Comments Initial Comments: PE: CONSTITUTIONAL: no apparent distress, well appearing, c-collar in place SKIN: warm, dry, no jaundice, hives or petechiae, small laceration, posterior occiput, exam limited by c-collar covering laceration initially, bleeding controlled, no other bruising or lacerations present EYES: pupils are equally round, extraocular movements intact without nystagmus, clear conjunctiva, non-icteric sclera HENT: normocephalic, small hematoma and laceration to the posterior occiput, moist mucus membranes, oropharynx clear without exudates NECK: Nontender/no midline tenderness, c-collar in place PULMONARY: clear to auscultation without wheezes, rhonchi, or rales, normal excursion, no accessory muscle use and no stridor, chest wall is nontender to palpation CARDIOVASCULAR: regular rate, rhythm, normal S1 and S2. No appreciated murmurs. Strong radial pulses with intact distal perfusion GASTROINTESTINAL: soft, non-tender, non-distended, no palpable masses, no rebound or guarding GENITOURINARY: Exam performed with RN present, no signs of trauma/ no bruising or bleeding LYMPHATICS: no edema in lower extremities MUSCULOSKELETAL: Extremities are nontender to palpation and have no gross defor mity, no edema, redness, or swelling, no midline spinal tenderness noted, mild tenderness noted to the right upper sacrum NEUROLOGIC: _a/o x 3, GCS 15, normal mentation and speech. Moves all extremities x 4 without motor or sensory deficit PSYCHIATRIC: _normal mood and affect, thought process is clear and linear Limitations: no limitations Course Vital Signs 09/08/23 09/08/23 16:41 18:53 Temperature 97.5 F L 98.1 F Pulse Rate 49 L 50 L Respiratory 18 18 Rate Blood Pressure 149/80 169/78 O2 Sat by Pulse 94 L 99 Oximetry - Reevaluation(s) Reevaluation #1: Hemoglobin stable at 15.4, chloride 108, BUN 30, creatinine 1.23 appears to be at baseline, similar to 07/19/2023 T. 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 I agree with radiologist interpretation this does appear to be chronic. Upon further discussion with patient's son, states this is chronic. 09/11/23 01:45 09/11/23 01:49 Reevaluation #2: 09/08/23 18:27 CT lumbar spine reviewed, I see no evidence of fracture or malalignment. Read by radiologist as no acute process, agree with radiologist interpretation. After reviewing patient's imaging I updated patient to imaging findings and cleared their C-Spine. There is no midline cervical neck tenderness or step- offs. The patient denies any numbess, tingling, or weakness of the extremities when moving neck through full ROM. The patient is able to range their neck compl etely without midline cervical pain, numbness, tingling or weakness. I was able to further evaluate patient's laceration further. Shows rather superficial abrasion with one small region that may benefit from a staple. this region is 0.5 cm in length. Patient's small laceration was repaired with 1 staple able. Please see procedure note. Tolerated well. Patient son is at bedside. He does note that patient has had multiple brain bleeds in the past, strokes and usually has a low heart rate, stating that sometimes his heart rate is as low as the 30s. 09/11/23 01:51 09/11/23 01:52 Procedures - Laceration Laceration #1 Consent Obtained: verbal consent Indication: laceration Site: scalp Size (cm): 1 Description: linear Depth: simple, single layer Pre-repair: irrigated extensively Type of Sutures: other (Staple) Number of Sutures: 1 (staple) Patient Tolerated Procedure: well Additional Comments: Patient given option of lidocaine for numbing prior to staple however given patient would only require 1 staple he was also given the option to forego lido evaristo. Patient opted to forego lidocaine. Medical Decision Making - Medical Decision Making Was pt. sent in by a medical professional or institution (, PA, CANDY ATTENDANT, urgent care, hospital, or assisted...) When possible be specific @ -No Did you speak to anyone other than the patient for history (EMS, parent, family, police, friend...)? What history was obtained from this source @ -No Did you review nursing and triage notes (agree or disagree)? Why? @ -[I reviewed nursing and triage notes- agree with exception of "unknown blood thinners and LOC" patient denies blood thinner use and LOC Were old charts reviewed (outside hosp., previous admission, EMS record, old EKG, old radiological studies, urgent care reports/EKG's, assisted records)? Report findings @ -Patient most recently in the hospital in June 2023, admitted for patient most recently in the hospital, discharged 07-19-2023, after losing his balance and history balance disorder with recurrent falls . Patient has documented hx bradycardia. Differential Diagnosis (chest pain, altered mental status, abdominal pain women, abdominal pain men, vaginal bleeding, weakness, fever, dyspnea, syncope, headache, dizziness, GI bleed, back pain, seizure, CVA, palpatations, mental health, musculoskeletal)? @ -Not applicable Differential diagnosis remains broad however top considerations include abrasions, laceration, hematoma, acute traumatic intracranial injury, acute trau matic c spine injury (patient has no midline spinall TTP or radiculoapthy however due to age cannot clear C spine without further imaging), additionally, though fall described as mechanical trip and fall, without LOC, did consider near syncope 2/2 arrhythmia, ACS, electrolyte abnormality, anemia, so EKG, troponin, CMP, CBC will be obtained EKG interpreted by me (3pts min.). @ EKG reviewed, compared to EKG on 07/17/2023 Sinus bradycardia with first-degree AV block First-degree AV block noted on prior EKG T wave flattening in V4, V5 and V6, similar to prior, Normal axis 50 bpm QT/QTc 516/48 X-rays interpreted by me (1pt min.). @ -None done CT interpreted by me (1pt min.). @ -Please see ED course, I agree with radiologist interpretation U/S interpreted by me (1pt. min.). @ -None done What testing was considered but not performed or refused? (CT, X-rays, U/S, labs)? Why? @ -None What meds were considered but not given or refused? Why? @ -None Did you discuss the management of the patient with other professionals (professionals i.e. , PA, CANDY ATTENDANT, lab, RT, psych nurse, licensed clinical social worker, admiralty lawyer, teacher, county records management officer, sample case porter)? Give summary @ -No Was smoking cessation discussed for >3mins.? @ -No Was critical care preformed (if so, how long)? @ -No Were there social determinants of health that impacted care today? How? (Homelessness, low income, unemployed, alcoholism, drug addiction, transportation, low edu. Level, literacy, decrease access to med. care, retirement, rehab)? @ -Hard of hearing Was there de-escalation of care discussed even if they declined (Discuss DNR or withdrawal of care, Hospice)? DNR status @ Patient's son at bedside later into ED stay, Patient, son and I did discuss code status, patient DNR What co-morbidities impacted this encounter? (DM, HTN, Smoking, COPD, CAD, Cancer, CVA, ARF, Chemo, Hep., AIDS, mental health diagnosis, sleep apnea, morbid obesity)? @ -prior CVA Was patient admitted / discharged? Hospital course, mention meds given and route, prescriptions, significant lab abnormalities, going to OR and other pertinent info. @ -Hospital course I have reviewed the patient's past medical records including triage summary, chief complaint, pertinent medical conditions, medications, surgical history, known medication allergies and previous visits to the emergency department. Patient is a 88-year-old gentleman presenting for mechanical trip and fall, landing on his right side sustaining small laceration to the right posterior occiput, no LOC. Initial evaluation showed overall well-appearing 88-year-old male no acute distress. C-collar in place. Small abrasion to the right posterior occiput, no focal neurologic deficits noted, no tenderness palpation of the extremities, chest or trunk or abdomen. No midline spinal tenderness to palpation. Plan for comprenehsive labs and imaging. Patient's workup significant for old subdural hematoma right-sided, patient son arrived at bedside states this is chronic. Repaired laceration, please see procedure note.. Patient able to ambulate without difficulty. Son at bedside. Plan for discharge home. I discussed with patient and son significant findings from today, and send symptoms worsen return to the ER. In my medical judgment there is currently no evidence of an immediate life- threatening or surgical condition. Discharge is therefore indicated at this time. Discharge treatment instructions, follow up instructions, and appropriate emergency department return precautions were discussed with the patient and/or medical decision maker. Patient and/or medical decision maker expressed understanding of and agreed with the treatment plan, follow up instructions, and emergency department return precaution. All patient's and/or medical decision maker's questions were answered. The patient was advised that a small risk still exists that a serious condition could develop and was therefore instructed to return to the ED for any changes in symptoms, persistent symptoms, inability to obtain proper follow-up or for any further concerns. Patient received verbal and written instructions for this condition. Undiagnosed new problem with uncertain prognosis? @ -No Drug Therapy requiring intensive monitoring for toxicity (Heparin, Nitro, Insulin, Cardizem)? @ -No Were any procedures done? @ -Laceration repair Diagnosis/symptom? @ -Fall Acute, or Chronic, or Acute on Chronic? @ -Acute, acute on chronic Uncomplicated (without systemic symptoms) or Complicated (systemic symptoms)? @ -Uncomplicated Side effects of treatment? @ -No Exacerbation, Progression, or Severe Exacerbation? @ -No - Lab Data Result diagrams: 09/08/23 17:31 09/08/23 17:31 Lab Results 09/08/23 09/08/23 09/08/23 Range/Units 17:31 17:31 17:31 WBC 6.0 (3.8-10.6) k/uL RBC 4.85 (4.30-5.90) m/uL Hgb 15.4 (13.0-17.5) gm/dL Hct 48.1 (39.0-53.0) % MCV 99.0 (80.0-100.0) fL MCH 31.7 (25.0-35.0) pg MCHC 32.0 (31.0-37.0) g/dL RDW 13.0 (11.5-15.5) % Plt Count 169 (150-450) k/uL MPV 9.3 Neutrophils % 81 % Lymphocytes % 9 % Monocytes % 7 % Eosinophils % 1 % Basophils % 0 % Neutrophils # 4.9 (1.3-7.7) k/uL Lymphocytes # 0.6 L (1.0-4.8) k/uL Monocytes # 0.4 (0-1.0) k/uL Eosinophils # 0.1 (0-0.7) k/uL Basophils # 0.0 (0-0.2) k/uL PT 10.2 (10.0-12.5) sec INR 0.9 (<1.2) APTT 19.6 L (22.0-30.0) sec Sodium 139 (137-145) mmol/L Potassium 3.9 (3.5-5.1) mmol/L Chloride 108 H (98-107) mmol/L Carbon Dioxide 24 (22-30) mmol/L Anion Gap 7 mmol/L BUN 30 H (9-20) mg/dL Creatinine 1.23 (0.66-1.25) mg/dL Est GFR (CKD-EPI)AfAm 61 (>60 ml/min/1.73 sqM) Est GFR (CKD-EPI)NonAf 52 (>60 ml/min/1.73 sqM) Glucose 160 H (74-99) mg/dL Calcium 9.1 (8.4-10.2) mg/dL Magnesium 2.1 (1.6-2.3) mg/dL Total Bilirubin 1.4 H (0.2-1.3) mg/dL AST 31 (17-59) U/L ALT 31 (4-49) U/L Alkaline Phosphatase 92 (38-126) U/L Troponin I (0.000-0.034) ng/mL Total Protein 6.3 (6.3-8.2) g/dL Albumin 4.0 (3.5-5.0) g/dL 09/08/23 Range/Units 17:31 WBC (3.8-10.6) k/uL RBC (4.30-5.90) m/uL Hgb (13.0-17.5) gm/dL Hct (39.0-53.0) % MCV (80.0-100.0) fL MCH (25.0-35.0) pg MCHC (31.0-37.0) g/dL RDW (11.5-15.5) % Plt Count (150-450) k/uL MPV Neutrophils % % Lymphocytes % % Monocytes % % Eosinophils % % Basophils % % Neutrophils # (1.3-7.7) k/uL Lymphocytes # (1.0-4.8) k/uL Monocytes # (0-1.0) k/uL Eosinophils # (0-0.7) k/uL Basophils # (0-0.2) k/uL PT (10.0-12.5) sec INR (<1.2) APTT (22.0-30.0) sec Sodium (137-145) mmol/L Potassium (3.5-5.1) mmol/L Chloride (98-107) mmol/L Carbon Dioxide (22-30) mmol/L Anion Gap mmol/L BUN (9-20) mg/dL Creatinine (0.66-1.25) mg/dL Est GFR (CKD-EPI)AfAm (>60 ml/min/1.73 sqM) Est GFR (CKD-EPI)NonAf (>60 ml/min/1.73 sqM) Glucose (74-99) mg/dL Calcium (8.4-10.2) mg/dL Magnesium (1.6-2.3) mg/dL Total Bilirubin (0.2-1.3) mg/dL AST (17-59) U/L ALT (4-49) U/L Alkaline Phosphatase (38-126) U/L Troponin I <0.012 (0.000-0.034) ng/mL Total Protein (6.3-8.2) g/dL Albumin (3.5-5.0) g/dL Disposition Clinical Impression: Fall Disposition: HOME SELF-CARE Condition: Good Instructions (If sedation given, give patient instructions): Fall Prevention for Older Adults (ED), Staple Care (ED) Additional Instructions: Every disease is a spectrum and a small chance still exists that a serious condition could develop, for this reason, please monitor yourself closely for new, changing or worsening symptoms, lightheadedness, dizziness, new or worsening headache/headache that is not abnormal for you, confusion, slurred speech, changes in vision, numbness or weakness, nausea and vomiting, redness, swelling or discharge from your wound fever, inability to tolerate/keep down fluids or your medications, inability to follow up with outpatient providers as instructed and should you experience these symptoms or should you have any further concerns for your wellbeing please return to the ED or call 911 immediately. Please have laceration assessed in 5 days for staple removal PLEASE call your primary care physician as soon as possible to arrange / discuss plan for followup appointment. Appointment in the next 1-3 days is strongly encouraged if possible. PLEASE let us know here before you leave if there is anything further we can do to be of any assistance. Take care and feel Better! Is patient prescribed a controlled substance at d/c from ED?: No Referrals: Oscar Segundo MD [Primary Care Provider] - 1-2 days
[2023-09-08] MEDS: ACETAMINOPHEN TAB 500 MG TAB PO STA (17:33)
--- NOTE | 2023-09-08 17:37 | CT ---
EXAMINATION TYPE: CT brain cspine wo con DATE OF EXAM: 09/08/2023 COMPARISON: 07/17/2023 HISTORY: Fall, unknown LOC or thinners. Hx of brain bleed. CT DLP: Combined DLP of 2705.[address] of the brain was performed. The ventricles, basal cisterns and sulci overlying the cerebral convexities demonstrate mild enlargem ent. There is nonacute right-sided subdural measuring 1.7 cm AP dimension. 1.7 cm in greatest transverse d imension. No midline shift identified. There is decreased attenuation about the periventricular white matter and deep white matter of both cerebral hemispheres, compatible with chronic small vessel isch emia. No mass effects are seen. If symptoms persist consider MRI. Osseous calvarium is intact. IMPRESSION: 1. Chronic right-sided subdural hematoma without evidence of midline shift. No acute hemorrhage seen. CT Cervical Spine: Unenhanced CT of the cervical spine was performed with bone and soft tissue window settings submitted . Coronal and sagittal reconstruction is obtained. There is normal alignment and prevertebral soft tissues. No evidence for acute cervical fracture . Scattered degenerative disc disease and spondylosis. Biapical scarring. IMPRESSION: 1. No evidence for acute fracture or subluxation of the cervical spine.
[2023-09-08 17:46] LABS: Basophils % (A) 0 %; Eosinophils # (A) 0.1 k/uL (0-0.7); Eosinophils % (A) 1 %; HCT 48.1 % (39.0-53.0); HGB 15.4 gm/dL (13.0-17.5); Lymphocytes # (A) 0.6 k/uL (1.0-4.8); Lymphocytes % (A) 9 %; MCH 31.7 pg (25.0-35.0); Mean Platelet Volume 9.3; Monocytes # (A) 0.4 k/uL (0-1.0); Monocytes % (A) 7 %; Neutrophils # (A) 4.9 k/uL (1.3-7.7); Neutrophils % (A) 81 %; Platelet Count 169 k/uL (150-450); RBC 4.85 m/uL (4.30-5.90)
[2023-09-08 18:01] LABS: ALT 31 U/L (4-49); AST 31 U/L (17-59); African American GFR (CKD) 61 (>60 ml/min/1.73 sqM); Alkaline Phosphatase 92 U/L (38-126); Anion Gap 7 mmol/L; Blood Urea Nitrogen 30 mg/dL (9-20); Calcium 9.1 mg/dL (8.4-10.2); Carbon Dioxide 24 mmol/L (22-30); Chloride 108 mmol/L (98-107); Glucose 160 mg/dL (74-99); Magnesium 2.1 mg/dL (1.6-2.3); Non-African American GFR(CKD) 52 (>60 ml/min/1.73 sqM); Potassium 3.9 mmol/L (3.5-5.1); Sodium 139 mmol/L (137-145); Total Bilirubin 1.4 mg/dL (0.2-1.3); Total Protein 6.3 g/dL (6.3-8.2)
[2023-09-08 18:03] LABS: INR 0.9 (<1.2); Prothrombin Time 10.2 sec (10.0-12.5)
--- NOTE | 2023-09-08 18:06 | CT ---
EXAMINATION TYPE: CT lumbar spine wo con DATE OF EXAM: 09/08/2023 5:31 PM COMPARISON: None HISTORY: Fall, Low back pain. CT DLP: Combined DLP of 2705.3 mGycm Automated exposure control for dose reduction was used. Unenhanced CT of the lumbar spine was performed. Bone and soft tissue window settings are submitted as well as coronal and sagittal reconstructions. L1-L2: Normal disc space height. No disc herniation protrusion or central stenosis. No facet joint arthropathy. No evidence for foraminal encroachment. L2-L3: Normal disc space height. No disc herniation protrusion or central stenosis. No facet joint arthropathy. No evidence for foraminal encroachment. L3-L4: Normal disc space height. No disc herniation protrusion or central stenosis. No facet joint arthropathy. No evidence for foraminal encroachment. L4-L5: Moderate degenerative disc space narrowing and mild central stenosis. L5-S1: Normal disc space height. No disc herniation protrusion or central stenosis. No facet joint arthropathy. No evidence for foraminal encroachment. IMPRESSION: No evidence for fracture.
[2023-09-08 18:16] LABS: Partial Thromboplastin Time 19.6 sec (22.0-30.0)
--- NOTE | 2023-09-08 18:44 | XR ---
EXAMINATION TYPE: XR chest 2V DATE OF EXAM: 09/08/2023 COMPARISON: 07/17/2023 HISTORY: Shortness of breath TECHNIQUE: Frontal and lateral views of the chest are obtained. FINDINGS: Scattered senescent parenchymal changes noted. Hyperinflation compatible with COPD. No evidence for infiltrate. No evidence for atelectasis. Heart size is stable. Mediastinal structures are stable and grossly unremarkable. No evidence for hilar prominence. Degenerative changes dorsal spine. IMPRESSION: 1. No evidence for acute pulmonary disease.
[2023-09-08 18:54] VITALS: BP 169/78; PULSE 50; TEMP 98.1
--- NOTE | 2023-09-08 18:54 | XR ---
EXAMINATION TYPE: XR pelvis AP view DATE OF EXAM: 09/08/2023 CLINICAL HISTORY: pain TECHNIQUE: Single view the pelvis is submitted. FINDINGS: No evidence for fracture, dislocation or bony lesion. Joint spaces are well-preserved. S I joints appear symmetric. IMPRESSION: 1. No acute fracture or dislocation seen. ICD 10 NO FRACTURE, INITIAL EVALUATION
== END 2023-09-08 21:33 | disposition home or self-care (01) ==
LOC: EC 16:36
DX: S01.01XA Laceration without foreign body of scalp, initial encounter (principal); Z88.2 Allergy status to sulfonamides; W01.0XXA Fall on same level from slipping, tripping and stumbling without subsequent striking against object, initial encounter
CPT/HCPCS: 12001; 36415; 70450; 71046; 72125; 72131; 72170; 80053; 83735; 84484; 85025; 85610; 85730; 99284